=== PATIENT | male | born 1985 | race Caucasian/White ===

== ENCOUNTER 2020-12-25 17:07 | Inpatient (IN) | payer MEDICARE, MEDICAID, SELFPAY ==
--- NOTE | ~2020-12-25 | US_ITS ---
EXAMINATION: ULTRASOUND LEFT GROIN CLINICAL INFORMATION: Left groin pain adenopathy COMPARISON: DVT study 03/31/2020 TECHNIQUE: Ultrasound of the left groin and proximal thigh was performed. FINDINGS: Multiple enlarged lymph nodes are present the largest measuring 3.9 x 1.5 x 0.9 cm. Morphologically they appear normal with normal fatty pb. They are moderately hypervascular. Subcutaneous edema is noted in the thigh. US/US extremity nonvascular IMPRESSION: Multiple enlarged/prominent lymph nodes left groin as described above.
--- NOTE | ~2020-12-25 | XR_ITS ---
EXAMINATION: XR CHEST CLINICAL INFORMATION: Fever. COMPARISON: None TECHNIQUE: 2 views of the chest were obtained. FINDINGS: The lungs are clear. There are no pleural effusions. The heart and mediastinal structures are unremarkable. XR/XR chest 2V IMPRESSION: No acute cardiopulmonary process.
--- NOTE | ~2020-12-25 | US_ITS ---
EXAMINATION: US VENOUS ULTRASOUND WITH DOPPLER LOWER EXTREMITY, LEFT CLINICAL INFORMATION: Pain COMPARISON: Previous exam March 2020 TECHNIQUE: Ultrasound of the deep veins is performed from the hip to the calf with compression sonography and color and pulse Doppler assessment. Spectral analysis with color-flow imaging is performed. FINDINGS: There is normal venous compression and respiratory variation and augmented flow. The visualized common femoral vein, superficial femoral vein, profunda femoral vein, popliteal vein, and the trifurcation region shows no evidence of deep venous thrombosis. There is no significant popliteal fossa cyst. There is left inguinal lymphadenopathy. US/US venous duplex LE LT IMPRESSION: No DVT demonstrated in the left lower extremity.
[2020-12-25 19:53] VITALS: BP 116/57; PULSE 121; RESP 18; TEMP 38.4; O2SAT 96; BMI 31.7
[2020-12-25] MEDS: Ibuprofen 600 MG TABLET PO (20:01)
[2020-12-25 20:17] LABS: Basophils Percent Auto 0.1 % (0-2); Hematocrit 46.3 % (42-52); Imm Gran Abs Auto 0.03 X10*3/uL (0.00-0.03); Imm Gran Pct Auto 0.3 % (0.0-0.4); Lymphocytes Absolute Auto 0.3 X10*3/uL (1.2-4.9); Lymphocytes Percent Auto 2.4 % (20-40); MANUAL DIFF FLAG SCAN; Mean Corpuscular HGB Conc 34.6 g/dl (31.0-36.0); Mean Corpuscular Hemoglobin 32.4 pg (27.0-33.0); Mean Corpuscular Volume 93.7 fL (80-98); Mean Platelet Volume 8.6 fL (9.4-12.4); Monocytes Absolute Auto 0.5 X10*3/uL (0.1-1.2); Monocytes Percent Auto 4.9 % (2-11); Neutrophils Absolute Auto 10.1 X10*3/uL (2.0-8.3); Neutrophils Percent Auto 92.3 % (45-73); Platelet Count 209 X10*3/uL (160-400); Red Blood Count 4.94 X10*6/uL (4.60-5.80); Red Cell Distribution Width 12.9 % (11.0-16.0); SCAN SMEAR FLAG 1; White Blood Count 10.9 X10*3/uL (4.8-10.8)
[2020-12-25 20:28] LABS: INTERNATIONAL NORM RATIO 1.1 (0.9-1.1); Prothrombin Time 13.5 SEC (10.8-13.0)
[2020-12-25 20:34] LABS: Lactic Acid 2.4 mmol/L (0.5-2.0)
[2020-12-25 20:34] LABS: Anion Gap 14 (12-20); Blood Urea Nitrogen 14 mg/dL (9-16); Calcium 9.3 mg/dL (8.4-10.2); Carbon Dioxide 29 mmol/L (22-29); Chloride 100 mmol/L (96-108); Creatinine Clr Calc Pharmacy 88.9; Estimated Glomerular Filt Rate > 60; Glucose Random 120 mg/dL (60-115); Potassium 4.2 mmol/L (3.3-5.1); SLIDE REVIEW VERIFIED; Sodium 139 mmol/L (135-145)
[2020-12-25 21:21] VITALS: BP 125/59; PULSE 114; RESP 18; TEMP 37.3; O2SAT 97
[2020-12-25 21:22] VITALS: BP 125/59; PULSE 112; RESP 16; O2SAT 100
--- NOTE | 2020-12-25 21:26 | ED_ITS ---
HPI - General Adult General Chief complaint: General Medical Stated complaint: Groin pain Time Seen by Provider: 12/25/20 21:09 Source: patient Mode of arrival: ambulatory History of Present Illness HPI narrative: This is a 35-year-old male with long-standing congenital bilateral lower extremity lymphedema who presents with worsening swelling of both lower extremities associated with erythema and with swelling and pain in bilateral groin areas left greater than right. In addition, patient states some chills but denies any fevers, urinary symptoms, abdominal pain, diarrhea. Patient states that this is happened previously a few years ago and he was seen and treated at [facility]. Related Data Allergies Allergy/AdvReac Type Severity Reaction Status Date / Time vancomycin Allergy Unknown Hives Verified 12/25/20 19:53 Review of Systems Review of Systems: Pertinent positives and negatives as stated in HPI 10 point review of systems is otherwise negative. [facility] Past Medical History Source: nursing notes reviewed Medical History Lymphedema Social History Social History Alcohol intake: current Alcohol intake frequency: holidays/special occasions only Smoking Status: Never smoker Substance Use Type: Marijuana Substance Use Frequency: Weekly Last Used Substance: Days (ago) Any prior treatment program specific to substance use: No Advance Directives: No Physical Exam Vital Signs: Vital Signs: Last Vital Signs Temp 99.2 F 12/25/20 21:21 Pulse 114 H 12/25/20 21:21 Resp 18 12/25/20 21:21 BP 125/59 L 12/25/20 21:21 Pulse Ox 97 12/25/20 21:21 Body Mass Index 31.7 VITAL SIGNS: Reviewed. GENERAL: Well developed, well nourished, in no acute distress. HEAD: Normocephalic/atraumatic EYES: PERRLA, EOMI NOSE: Nares patent bilateral OROPHARYNX: no oral lesions noted, posterior pharynx clear NECK: Supple, no adenopathy LUNGS: Normal breath sounds. No adventitious sounds or accessory muscle use. SpO2<97> CARDIOVASCULAR: Regular rate and rhythm without noted murmurs ABDOMEN: Soft, non-tender, non-distended with bowel sounds. Noted swelling at the bilateral groin area, left greater than right, with significant pain on palpation EXTREMITIES: Bilateral lower extremity lymphedema without pitting, erythema noted to the left lower extremity, palpable pulses/symmetric, and sensation intact SKIN: Inspection of the skin reveals no rashes NEUROLOGIC: Alert and oriented x 4. Course Course Course Narrative: This 35-year-old male with history and clinical presentation consistent with bilateral lower extremity cellulitis secondary to longstanding congenital lymphedema and currently having sepsis with organ dysfunction (bilirubin-1.3). Otherwise, all other investigations reviewed without acute findings other than mild leukocytosis. Doubt DVT based on patient's history and clinical exam. This case was discussed with the inpatient hospitalist team who is agreeable for admission. Medical Decision Making Lab Data Result diagrams: 12/25/20 20:08 12/25/20 20:08 Labs: Lab Results 12/25/20 12/25/20 12/25/20 Range/Units 20:07 20:08 20:08 WBC 10.9 H (4.8-10.8) X10*3/uL RBC 4.94 (4.60-5.80) X10*6/uL Hgb 16.0 (14.0-18.0) g/dl Hct 46.3 (42-52) % MCV 93.7 (80-98) fL MCH 32.4 (27.0-33.0) pg MCHC 34.6 (31.0-36.0) g/dl RDW 12.9 (11.0-16.0) % Plt Count 209 (160-400) X10*3/uL MPV 8.6 L (9.4-12.4) fL Immature Gran % (Auto) 0.3 (0.0-0.4) % Neut % (Auto) 92.3 H (45-73) % Lymph % (Auto) 2.4 L (20-40) % [place] % (Auto) 4.9 (2-11) % Eos % (Auto) 0.0 (0-4) % Baso % (Auto) 0.1 (0-2) % Lymph # (Auto) 0.3 L (1.2-4.9) X10*3/uL [place] # (Auto) 0.5 (0.1-1.2) X10*3/uL Eos # (Auto) 0.0 (0.0-0.4) X10*3/uL Baso # (Auto) 0.0 (0.0-0.2) X10*3/uL Abs Immat Gran (auto) 0.03 (0.00-0.03) X10*3/uL Absolute Neuts (auto) 10.1 H (2.0-8.3) X10*3/uL Absolute Nucleated RBC 0.000 (0.0-0.012) X10*3/uL Nucleated RBC % (auto) 0.0 (0.0-0.2) /100WBC Smear Tech's Comments VERIFIED PT 13.5 H (10.8-13.0) SEC INR 1.1 (0.9-1.1) Sodium (135-145) mmol/L Potassium (3.3-5.1) mmol/L Chloride (96-108) mmol/L Carbon Dioxide (22-29) mmol/L Anion Gap (12-20) BUN (9-16) mg/dL Creatinine (0.5-1.4) mg/dL Estim Creat Clear Calc Estimated GFR Random Glucose (60-115) mg/dL Lactic Acid 2.4 H* (0.5-2.0) mmol/L Calcium (8.4-10.2) mg/dL Total Bilirubin (0.0-1.0) mg/dL Direct Bilirubin (0.0-0.5) mg/dL AST (5-37) U/L ALT (0-40) U/L Alkaline Phosphatase (39-117) U/L Total Protein (6.5-8.0) g/dL Albumin (3.5-5.0) g/dL Urine Color Urine Appearance Urine pH (5.0-8.0) Ur Specific [place] (1.005-1.025) Urine Protein (NEG-TRACE) MG/DL Urine Glucose (UA) (NEG) MG/DL Urine Ketones (NEG) MG/DL Urine Blood (NEG) Urine Nitrite (NEG) Ur Leukocyte Esterase (NEG) Urine RBC (0) /HPF Urine WBC (0-4) /HPF Ur Squamous Epith Cells /LPF Urine Bacteria /LPF COVID-19 (EMELYN) (Negative) COVID-19 Clin Com 12/25/20 12/25/20 12/25/20 Range/Units 20:08 21:35 21:35 WBC (4.8-10.8) X10*3/uL RBC (4.60-5.80) X10*6/uL Hgb (14.0-18.0) g/dl Hct (42-52) % MCV (80-98) fL MCH (27.0-33.0) pg MCHC (31.0-36.0) g/dl RDW (11.0-16.0) % Plt Count (160-400) X10*3/uL MPV (9.4-12.4) fL Immature Gran % (Auto) (0.0-0.4) % Neut % (Auto) (45-73) % Lymph % (Auto) (20-40) % [place] % (Auto) (2-11) % Eos % (Auto) (0-4) % Baso % (Auto) (0-2) % Lymph # (Auto) (1.2-4.9) X10*3/uL [place] # (Auto) (0.1-1.2) X10*3/uL Eos # (Auto) (0.0-0.4) X10*3/uL Baso # (Auto) (0.0-0.2) X10*3/uL Abs Immat Gran (auto) (0.00-0.03) X10*3/uL Absolute Neuts (auto) (2.0-8.3) X10*3/uL Absolute Nucleated RBC (0.0-0.012) X10*3/uL Nucleated RBC % (auto) (0.0-0.2) /100WBC Smear Tech's Comments PT (10.8-13.0) SEC INR (0.9-1.1) Sodium 139 (135-145) mmol/L Potassium 4.2 (3.3-5.1) mmol/L Chloride 100 (96-108) mmol/L Carbon Dioxide 29 (22-29) mmol/L Anion Gap 14 (12-20) BUN 14 (9-16) mg/dL Creatinine 1.27 (0.5-1.4) mg/dL Estim Creat Clear Calc 88.9 Estimated GFR > 60 Random Glucose 120 H (60-115) mg/dL Lactic Acid (0.5-2.0) mmol/L Calcium 9.3 (8.4-10.2) mg/dL Total Bilirubin 1.3 H (0.0-1.0) mg/dL Direct Bilirubin 0.5 (0.0-0.5) mg/dL AST 38 H (5-37) U/L ALT 21 (0-40) U/L Alkaline Phosphatase 86 (39-117) U/L Total Protein 7.9 (6.5-8.0) g/dL Albumin 4.5 (3.5-5.0) g/dL Urine Color YELLOW Urine Appearance CLEAR Urine pH 6.5 (5.0-8.0) Ur Specific [place] 1.010 (1.005-1.025) Urine Protein NEG (NEG-TRACE) MG/DL Urine Glucose (UA) NEG (NEG) MG/DL Urine Ketones NEG (NEG) MG/DL Urine Blood TRACE (NEG) Urine Nitrite NEG (NEG) Ur Leukocyte Esterase NEG (NEG) Urine RBC 1-4 (0) /HPF Urine WBC 0 (0-4) /HPF Ur Squamous Epith Cells TRACE /LPF Urine Bacteria TRACE /LPF COVID-19 (EMELYN) Negative (Negative) COVID-19 Clin Com See Note Discharge Plan Discharge Clinical Impression: Bilateral cellulitis of lower leg, Lymphedema of both lower extremities, Sepsis Patient Disposition: Admitted As Inpatient
[2020-12-25 21:32] LABS: Alanine Aminotransferase 21 U/L (0-40); Albumin Level 4.5 g/dL (3.5-5.0); Alkaline Phosphatase 86 U/L (39-117); Aspartate Amino Transferase 38 U/L (5-37); Bilirubin Direct 0.5 mg/dL (0.0-0.5); Bilirubin Total 1.3 mg/dL (0.0-1.0); Total Protein 7.9 g/dL (6.5-8.0)
[2020-12-25 21:45] LABS: Glucose Urine UA NEG (NEG); Leukocyte Esterase Urine NEG (NEG); Nitrite Urine NEG (NEG); PH 6.5 (5.0-8.0); Urine Blood TRACE (NEG); Urine Ketones NEG (NEG); Urine Protein NEG (NEG-TRACE)
[2020-12-25 21:46] LABS: Appearance Urine CLEAR; Color Urine YELLOW
[2020-12-25] MEDS: 0.9 % Sodium Chloride 2,052 ML 2052 ML IVCONT (21:50)
[2020-12-25 21:51] LABS: Bacteria Urine TRACE /LPF; Squamous Epithelial Cell Urine TRACE /LPF; WBC Urine 0 /HPF (0-4)
[2020-12-25 22:01] LABS: COVID-19 Test Negative (Negative); IDNOW Serial# 9DD0AD1C
[2020-12-25 22:14] LABS: Reflex Lactate? Lactic Acid Added
[2020-12-25] MEDS: Piperacillin Sodium/Tazobactam 4.5 GM in 0.9 % Sodium Chloride 100 ML IV (22:17)
[2020-12-25 23:12] VITALS: BP 120/61; PULSE 103; RESP 16; TEMP 37; O2SAT 100
--- NOTE | 2020-12-25 23:19 | P.HPHOSP_ITS ---
History of Present Illness Date of Service: 12/25/20 Chief Complaint: Left groin pain 35-year-old male with a past medical history of bilateral chronic lymphedema presented to the hospital with a chief complaint of left lower extremity pain redness and swelling and more so the pain is located in the groin. Mentions that his symptoms started about 1 day ago and a had increasing pain at work; called his PCP's who recommended to go to the clinic where he was recommended to go to the ER for further evaluation. Patient mentions that all day at length chills. Denies any numbness tingling. Denies any difficulty walking. Denies any abdominal pain chest pain lightheadedness dizziness. Denies any recent travel or sick contacts. Patient mentions that he has has chronic lymphedema. [facility] Medical History Lymphedema Social History Household Members: Family Alcohol intake: current Alcohol intake frequency: holidays/special occasions only Smoking Status: Never smoker Substance Use Type: Marijuana service: No Current occupational status: unemployed Meds Allergies Allergy/AdvReac Type Severity Reaction Status Date / Time vancomycin Allergy Unknown Hives Verified 12/25/20 19:53 Active Medications: Current Medications Generic Name Dose Route Start Last Admin Trade Name Freq PRN Reason Stop Dose Admin Heparin Sodium (Porcine) 5,000 unit 12/25/20 23:15 Heparin Sodium,Porcine 5,000 Unit/Ml Vial SUBCUT Q8H KODI Sodium Chloride 1,000 mls @ 100 mls/hr 12/25/20 23:15 Ns IVCONT .Q10H KODI Piperacillin Sod/Tazobactam 50 mls @ 100 mls/hr 12/25/20 23:30 Sod 3.375 gm/ Sodium Chloride IV Q6H KODI Ketorolac Tromethamine 15 mg 12/25/20 23:15 Ketorolac Tromethamine 30 Mg/Ml Vial IVPUSH 12/30/20 23:14 Q6H PRN Pain, Mild (Pain Scale 1-3) Senna 17.2 mg 12/25/20 23:15 Sennosides 8.6 Mg Tablet PO BEDTIME PRN Constipation Sodium Chloride 3 ml 12/26/20 00:00 0.9 % Sodium Chloride Flush 3 Ml Syringe IVFLUSH QSHIFT [facility] Home Medications Medication Instructions Recorded Confirmed Last Taken Type ibuprofen 1 tab PO TID PRN 12/25/20 12/25/20 12/23/20 History 800 Physical Exam Vital Signs and Narrative: Vital Signs: Last Vital Signs Temp 98.6 F 12/25/20 23:12 Pulse 103 H 12/25/20 23:12 Resp 16 12/25/20 23:12 BP 120/61 12/25/20 23:12 Pulse Ox 100 12/25/20 23:12 Body Mass Index 31.7 Gen: Appears be in no acute distress HEENT: NCAT, Moist mucosa. Pulmonary: Vesicular breath sounds, fair air entry CVS: Normal S1-S2 Abdomen: BS+, Soft, Nontender Extremities: Warm well perfused; left groin tenderness and lymphadenopathy noticed. Left thigh and left leg are warm and hyperemic. Right lower extremity is less hyperemic compared to the left. Neuro: Alert and awake. Patient examined along with a banquet manager/RN at bedside Results Labs CBC and Chem 7: 12/28/20 08:05 12/28/20 08:05 Labs: Laboratory Results - last 24 hr 12/25/20 12/25/20 12/25/20 20:07 20:08 20:08 MCV 93.7 MCH 32.4 MCHC 34.6 RDW 12.9 Plt Count 209 MPV 8.6 L Immature Gran % (Auto) 0.3 Neut % (Auto) 92.3 H Lymph % (Auto) 2.4 L [place] % (Auto) 4.9 Eos % (Auto) 0.0 Baso % (Auto) 0.1 Lymph # (Auto) 0.3 L [place] # (Auto) 0.5 Eos # (Auto) 0.0 Baso # (Auto) 0.0 Abs Immat Gran (auto) 0.03 Absolute Neuts (auto) 10.1 H Absolute Nucleated RBC 0.000 Nucleated RBC % (auto) 0.0 Smear Tech's Comments VERIFIED PT 13.5 H INR 1.1 Anion Gap Estim Creat Clear Calc Estimated GFR Random Glucose Lactic Acid 2.4 H* Calcium Total Bilirubin Direct Bilirubin AST ALT Alkaline Phosphatase Total Protein Albumin Urine Color Urine Appearance Urine pH Ur Specific [place] Urine Protein Urine Glucose (UA) Urine Ketones Urine Blood Urine Nitrite Ur Leukocyte Esterase Urine RBC Urine WBC Ur Squamous Epith Cells Urine Bacteria COVID-19 (EMELYN) COVID-19 Clin Com 12/25/20 12/25/20 12/25/20 20:08 21:35 21:35 MCV MCH MCHC RDW Plt Count MPV Immature Gran % (Auto) Neut % (Auto) Lymph % (Auto) [place] % (Auto) Eos % (Auto) Baso % (Auto) Lymph # (Auto) [place] # (Auto) Eos # (Auto) Baso # (Auto) Abs Immat Gran (auto) Absolute Neuts (auto) Absolute Nucleated RBC Nucleated RBC % (auto) Smear Tech's Comments PT INR Anion Gap 14 Estim Creat Clear Calc 88.9 Estimated GFR > 60 Random Glucose 120 H Lactic Acid Calcium 9.3 Total Bilirubin 1.3 H Direct Bilirubin 0.5 AST 38 H ALT 21 Alkaline Phosphatase 86 Total Protein 7.9 Albumin 4.5 Urine Color YELLOW Urine Appearance CLEAR Urine pH 6.5 Ur Specific [place] 1.010 Urine Protein NEG Urine Glucose (UA) NEG Urine Ketones NEG Urine Blood TRACE Urine Nitrite NEG Ur Leukocyte Esterase NEG Urine RBC 1-4 Urine WBC 0 Ur Squamous Epith Cells TRACE Urine Bacteria TRACE COVID-19 (EMELYN) Negative COVID-19 Clin Com See Note 12/25/20 21:42 MCV MCH MCHC RDW Plt Count MPV Immature Gran % (Auto) Neut % (Auto) Lymph % (Auto) [place] % (Auto) Eos % (Auto) Baso % (Auto) Lymph # (Auto) [place] # (Auto) Eos # (Auto) Baso # (Auto) Abs Immat Gran (auto) Absolute Neuts (auto) Absolute Nucleated RBC Nucleated RBC % (auto) Smear Tech's Comments PT INR Anion Gap Estim Creat Clear Calc Estimated GFR Random Glucose Lactic Acid 4.0 H* Calcium Total Bilirubin Direct Bilirubin AST ALT Alkaline Phosphatase Total Protein Albumin Urine Color Urine Appearance Urine pH Ur Specific [place] Urine Protein Urine Glucose (UA) Urine Ketones Urine Blood Urine Nitrite Ur Leukocyte Esterase Urine RBC Urine WBC Ur Squamous Epith Cells Urine Bacteria COVID-19 (EMELYN) COVID-19 Clin Com Imaging Radiologist's Impressions: Impressions Chest X-Ray 12/25/20 20:25 IMPRESSION: No acute cardiopulmonary process. Assessment and Plan (1) Bilateral cellulitis of lower leg: Status: Acute 35-year-old male with a past medical history of bilateral chronic lymphedema presented to the hospital with a chief complaint of left groin pain and increased hyperemia on bilateral lower extremities most on the left lower extremity. Noted to have cellulitis. Admitted for further management. Bilateral lower extremities still is: There is increased hyperemia and pain noticed on the left lower extremity as well as left groin. Will continue IV Zosyn. Next will obtain ultrasound. Pain control DVT prophylaxis: Subcu heparin Code status: Full code
[2020-12-25 23:47] LABS: Reflex Lactate? Lactic Acid Added
[2020-12-25] MEDS: 0.9 % Sodium Chloride 1,000 ML 100 ML IVCONT (23:53)
--- NOTE | 2020-12-25 23:53 | PC.NURSE ---
ultra sound at bedside at this time. pt comfort is at 3/10, denies the need for pain medication at this time.
[2020-12-25 23:54] VITALS: BP 108/43; PULSE 103; RESP 18; O2SAT 99
[2020-12-26] VITALS (9 sets, daily range): BP systolic 105–122; BP diastolic 52–60; PULSE 95–109; RESP 15–18; TEMP 37.1–38.8; O2SAT 95–99
[2020-12-26 00:15] LABS: ~Lactic Acid-LAB USE ONLY 4.1 mmol/L (0.5-2.0)
[2020-12-26] MEDS: Heparin Sodium,Porcine 5,000 UNIT/ML VIAL 5000 UNIT SUBCUT ×2 (00:38→10:35)
[2020-12-26 01:48] LABS: Reflex Lactate? 2 Y
[2020-12-26] MEDS: Piperacillin Sodium/Tazobactam 3.375 GM in 0.9 % Sodium Chloride 50 ML IV ×4 (02:53→20:54)
[2020-12-26 03:05] LABS: ~Lactic Acid-LAB USE ONLY 2.6 mmol/L (0.5-2.0)
[2020-12-26 04:29] LABS: Lactic Acid 2.6 mmol/L (0.5-2.0)
--- NOTE | 2020-12-26 04:32 | PC.NURSE ---
attempted to call hospitalist to report lactic 2.6 same as prev.
[2020-12-26 06:02] LABS: Reflex Lactate? Lactic Acid Added
[2020-12-26 07:27] LABS: Hematocrit 41.9 % (42-52); Hemoglobin 14.5 g/dl (14.0-18.0); Mean Corpuscular HGB Conc 34.6 g/dl (31.0-36.0); Mean Corpuscular Hemoglobin 32.7 pg (27.0-33.0); Mean Corpuscular Volume 94.4 fL (80-98); Mean Platelet Volume 8.7 fL (9.4-12.4); Platelet Count 164 X10*3/uL (160-400); Red Blood Count 4.44 X10*6/uL (4.60-5.80)
[2020-12-26 07:45] LABS: Anion Gap 13 (12-20); Blood Urea Nitrogen 10 mg/dL (9-16); Carbon Dioxide 24 mmol/L (22-29); Chloride 107 mmol/L (96-108); Creatinine Clr Calc Pharmacy 111.8; Estimated Glomerular Filt Rate > 60; Glucose Random 119 mg/dL (60-115); Potassium 3.6 mmol/L (3.3-5.1); Sodium 140 mmol/L (135-145)
[2020-12-26 07:47] LABS: ~Lactic Acid-LAB USE ONLY 1.9 mmol/L (0.5-2.0)
[2020-12-26 07:54] LABS: Calcium 7.9 mg/dL (8.4-10.2)
[2020-12-26 08:01] LABS: Band Neutrophils Percent 18 % (3-5); Lymphocytes Absolute Manual 0.6 X10*3/uL (0.6-4.8); Lymphocytes Percent Manual 6 % (20-40); Monocytes Absolute Manual 0.1 X10*3/uL (0.0-1.2); Monocytes Percent Manual 1 % (2-11); Neutrophils Absolute Manual 9.3 X10*3/uL (2.2-7.9); Neutrophils Percent Manual 75 % (45-73)
[2020-12-26 08:02] LABS: Platelet Estimate SLIGHTLY DECREASED (NORMAL); Platelet Morphology Comment NORMAL; RBC Morphology NORMAL
--- NOTE | 2020-12-26 08:14 | P.CDIC_ITS ---
CDI Concurrent Query Service Date: 12/26/20 Documentation Clarification: Please clarify if you are treating a proba ble/suspected/likely or confirmed: Sepsis Txt, rule out, poa, resolved Sepsis due to cellulitis Cellulitis Sepsis Present on Admission Provider Response: Other Other Diagnosis: Sepsis, POA PLEASE DO NOT DELETE/MODIFY EXISTING CONTENT Additional information is needed in order to code to the highest accuracy and appropriate Severity of Illness (SOI). Please clarify the information noted below in your progress notes and discharge summary. Risk Factors/Clinical Indicators/Treatments ED: pt currently having signs of sepsis with organ dysfunction (bilirubin 1.3) lymphedema both lower extremities, bilateral cellulitis both lower legs. WBC 10.9 Temp 99.2 HR 114 RR 18 LA 2.4 IV Zosyn H&P: Chief complaint: cellulitis, groin pain, hyperemia on b/l lower extremities CDS: Maria L Fuens CCS, CDIS Contact Number: [phone] Please Review the information above and exercise your independent professional judgment in responding to the query. If you concur, pleas document in the PROGRESS NOTES and DISCHARGE SUMMARY. If you do not agree with the query, please document in the query above. THIS QUERY IS PART OF THE PERMANENT MEDICAL RECORD
--- NOTE | 2020-12-26 09:11 | PC.NURSE ---
Received tigertext from Deb Louis in [place]. On 2 out of 2 positive blood cultures, I tigertexted Dr. Fowler
[2020-12-26] MEDS: 0.9 % Sodium Chloride 1,000 ML 100 ML IVCONT ×2 (10:08→20:54)
--- NOTE | 2020-12-26 10:27 | HO.PM.IMPN ---
Subjective Subjective Date of Service: 12/26/20 Interval History: seen and examined reports pain improved denies fevers or chills reports lymphedma since age 7, follows up with lymphedema clinic ROS General - no fevers or chills Cardiovascular - no chest pain Respiratory - no shortness of breath or cough Abdominal- no abdominal pain, nausea, vomiting, diarrhea Physical Exam Vital Signs: Vital Signs: Last Vital Signs Temp 99.7 F 12/26/20 08:00 Pulse 95 12/26/20 08:00 Resp 17 12/26/20 08:00 BP 114/58 L 12/26/20 08:00 Pulse Ox 98 12/26/20 08:00 Body Mass Index 31.7 Const: Other: General - no acute distress, appears comfortable Cardiovascular - regular rate and rhythm, S1-S2 Lungs - normal respiratory effort, clear to auscultation bilaterally, no wheezing Abdomen - soft, nontender, no rebound or guarding Extremities - bilateral swelling L > R, erythema and warmth present as well Neuro - awake and alert, no focal deficits Objective Data Current Medications Generic Name Dose Route Start Last Admin Trade Name Freq PRN Reason Stop Dose Admin Heparin Sodium (Porcine) 5,000 unit 12/26/20 00:00 12/26/20 00:38 Heparin Sodium,Porcine 5,000 Unit/Ml Vial SUBCUT 5,000 unit Q8H KODI Administration Sodium Chloride 1,000 mls @ 100 mls/hr 12/25/20 23:15 12/26/20 10:08 Ns IVCONT 100 mls/hr .Q10H KODI Administration Piperacillin Sod/Tazobactam 50 mls @ 100 mls/hr 12/26/20 04:00 12/26/20 10:09 Sod 3.375 gm/ Sodium Chloride IV 100 mls/hr Q6H KODI Administration Ketorolac Tromethamine 15 mg 12/25/20 23:15 Ketorolac Tromethamine 15 Mg/Ml Vial IVPUSH 12/30/20 23:14 Q6H PRN Pain, Mild (Pain Scale 1-3) Senna 17.2 mg 12/25/20 23:15 Sennosides 8.6 Mg Tablet PO BEDTIME PRN Constipation Sodium Chloride 3 ml 12/26/20 00:00 12/26/20 10:08 0.9 % Sodium Chloride Flush 3 Ml Syringe IVFLUSH Not Given QSHIFT KODI Labs CBC & Chem 7: 12/26/20 07:06 12/26/20 07:06 Microbiology Microbiology Results: Microbiology 12/25/20 21:42 Blood - Venous Blood Culture - Preliminary 12/25/20 20:07 Blood - Venous Blood Culture - Preliminary Assessment and Plan (1) Bilateral cellulitis of lower leg: Status: Acute Assessment and Plan: This is a 35 yo M admitted for bilateral LE cellulitis in the setting of chronic lymph edema. He met sepsis criteria in the ED with tachycardia, fevers and bandemia. He received fluid bolus based on ideal body weight in the ED. 1. Severe sepsis met sepsis criteria with fevers, tachycardia, bandemia present in the ED, received IVF based on ideal body weight lactate normalized f/u blood cx -- growing GPC 2. Bilatera LE cellulitis growing GPC in 2/ cx continue zosyn, has vancomcyin allergy, will consult ID for input 3. GPC bacteremia see above Full Code DVt pptx, Lovenox
--- NOTE | 2020-12-26 10:54 | MHC.CM.PN ---
IMM 12/26/20, PT ADMITTED W/BILATERAL LE CELLULITIS, PT HAS CHRONIC BILATERAL LE LYMPHODEMA AND WEARS LYMPHADEMA PUMPS TO MANAGE AT HOME, PT REPORTS HE LIVES W/EX AND CHILDREN, INDEPENDENT W/ALL CARE, NO HOME SERVICES, PT VERIFIES PCP ON FILE IS CORRECT AND REPORTS HIS LYMPHADEMA SPECIALIST IS DR AMARIS TIDWELL IN [facility], DENIES ANY OTHER SPECIALISTS, DECLINES HCP AT THIS TIME. CM WILL CONT TO FOLLOW FOR ANY CHANGE IN D/C NEEDS. DISCHARGE PLAN: HOME SELF-CARE, MOTHER TO TRANSPORT
--- NOTE | 2020-12-26 11:38 | PC.NURSE ---
Tigertexted Sudha Cheatham for tylenol pt has a temp of 101.8
[2020-12-26] MEDS: Acetaminophen 325 MG TABLET 650 MG PO ×2 (12:03→20:55)
--- NOTE | 2020-12-26 12:30 | P.CNID_ITS ---
History of Present Illness Data of Consult Service Date: 12/26/20 Requesting physician: Sudha Cheatham Primary Care Provider: MD JOSE Cha Reason for consult: bacteremia He presents to hospital with left leg swelling and pain These symptoms are present for about a week He has temperature to 101.8 He has blood cultures gram positive cocci Review of Systems Review of Systems: Yes all other systems are reviewed and are negative PMFSH Past Medical History Medical History Lymphedema Family History Family history: reviewed and not pertinent Social History Social History Household Members: Family Do you presently have visiting nurse or other home services: No Alcohol intake: current Alcohol intake frequency: holidays/special occasions o nly Smoking Status: Never smoker Substance Use Type: Marijuana Substance Use Frequency: Weekly Last Used Substance: Days (ago) Any prior treatment program specific to substance use: No Have you been hit, kicked, punched, or otherwise hurt by someone within the past year? If so, by whom?: No Do you feel safe in your current relationship?: Yes Advance Directives: No Do you have thoughts of harming others: None Do you have a plan to hurt others: No Plan Recently lost weight without trying: No service: No Current occupational status: unemployed Meds Allergies Allergy/AdvReac Type Severity Reaction Status Date / Time vancomycin Allergy Unknown Hives Verified 12/25/20 19:53 Active Medications: Current Medications Generic Name Dose Route Start Last Admin Trade Name Freq PRN Reason Stop Dose Admin Acetaminophen 650 mg 12/26/20 11:38 12/26/20 12:03 Acetaminophen 325 Mg Tablet PO 650 mg Q4H PRN Administration Fever Enoxaparin Sodium 40 mg 12/26/20 18:00 Enoxaparin Sodium 40 Mg/0.4 Ml Syringe SUBCUT Q24H KODI Sodium Chloride 1,000 mls @ 100 mls/hr 12/25/20 23:15 12/26/20 10:08 Ns IVCONT 100 mls/hr .Q10H KODI Administration Piperacillin Sod/Tazobactam 50 mls @ 100 mls/hr 12/26/20 04:00 12/26/20 11:39 Sod 3.375 gm/ Sodium Chloride IV Infused Q6H KODI Infusion Ketorolac Tromethamine 15 mg 12/25/20 23:15 Ketorolac Tromethamine 15 Mg/Ml Vial IVPUSH 12/30/20 23:14 Q6H PRN Pain, Mild (Pain Scale 1-3) Senna 17.2 mg 12/25/20 23:15 Sennosides 8.6 Mg Tablet PO BEDTIME PRN Constipation Sodium Chloride 3 ml 12/26/20 00:00 12/26/20 10:08 0.9 % Sodium Chloride Flush 3 Ml Syringe IVFLUSH Not Given QSHIFT [facility] Home Medications Medication Instructions Recorded Confirmed Last Taken Type ibuprofen 1 tab PO TID PRN 12/25/20 12/25/20 12/23/20 History 800 Physical Exam Vital Signs: Vital Signs: Last Vital Signs Temp 101.8 F H 12/26/20 11:11 Pulse 103 H 12/26/20 11:11 Resp 18 12/26/20 11:11 BP 114/56 L 12/26/20 11:11 Pulse Ox 97 12/26/20 11:11 Body Mass Index 31.7 Const: General: cooperative HENMT: Ears: hearing grossly normal bilaterally Mouth: Normal oral and palatal mucosa present Resp: Effort & Inspection: normal respiratory effort Cardio: Rate: regular rate Rhythm: regular rhythm GI: Palpation (GI): Soft to palpation and nontender Skin: General skin exam: no rashes or lesions noted Extrem: Other: swelling left more than right,some tinea pedis Results Labs CBC & Chem 7: 12/26/20 07:06 12/26/20 07:06 Labs: Short CBC 12/25/20 12/26/20 Range/Units 20:08 07:06 WBC 10.9 H 10.0 (4.8-10.8) X10*3/uL Hgb 16.0 14.5 (14.0-18.0) g/dl Hct 46.3 41.9 L (42-52) % Plt Count 209 164 (160-400) X10*3/uL BMP 12/25/20 12/26/20 20:08 07:06 Sodium 139 140 Potassium 4.2 3.6 Chloride 100 107 Carbon Dioxide 29 24 BUN 14 10 Creatinine 1.27 1.01 Calcium 9.3 7.9 L D Liver Function 12/25/20 Range/Units 20:08 Total Bilirubin 1.3 H (0.0-1.0) mg/dL Direct Bilirubin 0.5 (0.0-0.5) mg/dL AST 38 H (5-37) U/L ALT 21 (0-40) U/L Alkaline Phosphatase 86 (39-117) U/L Albumin 4.5 (3.5-5.0) g/dL Urine 12/25/20 Range/Units 21:35 Urine Color YELLOW Urine Appearance CLEAR Urine pH 6.5 (5.0-8.0) Ur Specific [place] 1.010 (1.005-1.025) Urine Protein NEG (NEG-TRACE) MG/DL Urine Glucose (UA) NEG (NEG) MG/DL Microbiology Microbiology Results: Microbiology 12/25/20 21:42 Blood - Venous Blood Culture - Preliminary 12/25/20 20:07 Blood - Venous Blood Culture - Preliminary Assessment and Plan (1) Bilateral cellulitis of lower leg: Status: Acute (2) Lymphedema of both lower extremities: Status: Acute (3) Sepsis: Qualifiers: Sepsis acute organ dysfunction status: with acute organ dysfunction Sepsis type: sepsis due to unspecified organism Severe sepsis acute organ dysfunction type: unspecified Severe sepsis shock status: without septic shock Qualified Code(s): A41.9 - Sepsis, unspecified organism; R65.20 - Severe sepsis without septic shock Problem details: He has cellulitis since age 7,intermittently and due to tinea pedis Bacteremia may be strep or staph He has significant hives to Vancomycin Status: Acute Would continue gram positive coverage Continue Zosyn until further information ? change to Zyvox if MRSA or Ceftriaxone if strep Check echo
[2020-12-26] MEDS: Ketorolac Tromethamine 15 MG/ML VIAL IVPUSH ×2 (16:01→22:09)
[2020-12-26] MEDS: Enoxaparin Sodium 40 MG/0.4 ML SYRINGE SUBCUT (18:00)
[2020-12-26] MEDS: Sennosides 8.6 MG TABLET 17.2 MG PO (20:54)
[2020-12-27 04:00] VITALS: BP 128/58; PULSE 116; RESP 16; TEMP 37.1; O2SAT 97
[2020-12-27] MEDS: Piperacillin Sodium/Tazobactam 3.375 GM in 0.9 % Sodium Chloride 50 ML IV ×2 (04:15→11:02)
[2020-12-27 07:45] VITALS: BP 126/58; PULSE 116; RESP 17; TEMP 38.6; O2SAT 96
[2020-12-27] MEDS: 0.9 % Sodium Chloride 1,000 ML 100 ML IVCONT (07:54)
[2020-12-27] MEDS: Acetaminophen 325 MG TABLET 650 MG PO ×2 (07:55→17:47)
--- NOTE | 2020-12-27 11:00 | CA_ITS ---
Transthoracic Echocardiogram Patient (Last, First, Middle): Tesfaye Merlos, Gender: Male Date of : 1985 Age: 35 Procedure Date: 12/27/2020 Procedure Type: Transthoracic Echocardiogram Location: S3W Height: 172.72 cm Weight: 94.8 kg BSA: 2.08 m2 Heart Rate: bpm BP: 128 / 58 mmHg Certified Physical Therapist Assistant: ARGENIS Referring MD: Sudha Cheatham NP Symptoms: strep on blood culture Study Quality: Good ECG Rhythm: Sinus Conclusions: - The left ventricular systolic function is normal. The visually estimated ejection fraction is between 55-60%. - No obvious valvular pathology seen on this study. Findings Left Ventricle Normal left ventricular cavity size. There is normal left ventricular wall thickness. The left ventricular systolic function is normal. The visually estimated ejection fraction is between 55-60%. There is no evidence of regional wall motion abnormalities. Diastolic function is normal for age. Right Ventricle Normal right ventricular cavity size and systolic function. Atria The left atrium is normal in size. The right atrium is normal in size. Aortic Valve There is a normal trileaflet aortic valve. There is no aortic valve stenosis. There is no aortic valve regurgitation. Mitral Valve The mitral valve appears normal. There is trace mitral valve regurgitation. There is no mitral valve stenosis. Pulmonic Valve The pulmonic valve was not well visualized. Tricuspid Valve Normal tricuspid valve structure. There is trace tricuspid valve regurgitation. The pulmonary artery systolic pressure is normal. Great Vessels The aortic annulus, sinuses of valsalva, and asc aorta are normal in size. Venous The inferior vena cava is mildly dilated. Pericardium/Pleural There is no evidence of pericardial effusion. Prior Study Comparison No prior study available for comparison. Recommendations, Care & Conclusions No obvious valvular pathology seen on this study. Measurements 2D Linear Measurements IVSd: 0.92 0.6-0.9/0.6-1.0 cm LVIDd: 5.01 3.9-5.3/4.2-5.9 cm LVIDd Index: 2.41 2.4-3.2/2.2-3.1 cm/m2 LVIDs: 2.86 2.0-3.6 cm LVPWd: 1.00 0.7-1.1 cm Ao Root: 3.50 2.1-3.5 cm LA Diam: 3.50 2.7-3.8/3.0-4.0 cm LAIDs Index: 1.68 1.5-2.3 cm/m2 LV Mass: 214.45 67-162/88-224 g LV Mass Index: 103.10 43-95/49-115 g/m2 LVOT Diam: 2.00 3.0+(-)1.3 cm 2D Systolic Function EF 4C: 56.20 >55% EF 2C: 62.10 >55% EF BiP: 59.70 >55% Aortic Valve AoV Pk Imer: 1.66 AoV Mn Imer: 1.14 AoV VTI: 0.27 AoV Pk Grad: 11.00 Aov Mn Grad: 6.00 NIVIA Cont.VTI: 2.90 LVOT LVOT Pk Imer: 1.35 LVOT Mn Imer: 1.07 LVOT VTI: 0.25 LVOT Pk Grad: 7.00 LVOT Mn Grad: 5.00 LVOT Diam: 2.00 LVOT Area: 3.14 Tricuspid Valve TR Pk Imer: 2.21 TR Pk Grad: 20.00 RA Press: 8.00 RVSP: 28.00 Great Vessels Aorta Ao Root-2D: 3.50 2.0-3.7 cm Ao Asc: 3.00 2.1-3.4 cm Updated in Other Vendor System with Status of Final Chris Soni MD electronically signed on 12/27/2020 3:56:19 PM with status of Final
--- NOTE | 2020-12-27 11:07 | P.PNIM_ITS ---
Subjective Subjective Date of Service: 12/27/20 Interval History: seen and examined reports leg swelling / tightness feel less compared to yesterday still having fevers, denies chills ROS General - no fevers or chills Cardiovascular - no chest pain Respiratory - no shortness of breath or cough Abdominal- no abdominal pain, nausea, vomiting, diarrhea Ext - leg pain and swelling + Physical Exam Vital Signs: Vital Signs: Last Vital Signs Temp 101.5 F H 12/27/20 07:45 Pulse 116 H 12/27/20 07:45 Resp 17 12/27/20 07:45 BP 126/58 L 12/27/20 07:45 Pulse Ox 96 12/27/20 07:45 Body Mass Index 31.7 Const: Other: General - no acute distress, appears comfortable Cardiovascular - regular rate and rhythm, S1-S2 Lungs - normal respiratory effort, clear to auscultation bilaterally, no wheezing Abdomen - soft, nontender, no rebound or guarding Extremities - bilateral swelling L > R, erythema and warmth present as well, less tense compared to yesterday, no increased pain with plantar or dorsiflexsion Neuro - awake and alert, no focal deficits Objective Data Current Medications Generic Name Dose Route Start Last Admin Trade Name Freq PRN Reason Stop Dose Admin Acetaminophen 650 mg 12/26/20 11:38 12/27/20 07:55 Acetaminophen 325 Mg Tablet PO 650 mg Q4H PRN Administration Fever Enoxaparin Sodium 40 mg 12/26/20 18:00 12/26/20 18:00 Enoxaparin Sodium 40 Mg/0.4 Ml Syringe SUBCUT 40 mg Q24H KODI Administration Sodium Chloride 1,000 mls @ 100 mls/hr 12/25/20 23:15 12/27/20 09:50 Ns IVCONT 100 mls/hr .Q10H KODI Infusion Piperacillin Sod/Tazobactam 50 mls @ 100 mls/hr 12/26/20 04:00 12/27/20 11:02 Sod 3.375 gm/ Sodium Chloride IV 100 mls/hr Q6H KODI Administration Ketorolac Tromethamine 15 mg 12/25/20 23:15 12/26/20 22:09 Ketorolac Tromethamine 15 Mg/Ml Vial IVPUSH 12/30/20 23:14 15 mg Q6H PRN Administration Pain, Mild (Pain Scale 1-3) Senna 17.2 mg 12/25/20 23:15 12/26/20 20:54 Sennosides 8.6 Mg Tablet PO 17.2 mg BEDTIME PRN Administration Constipation Sodium Chloride 3 ml 12/26/20 00:00 12/27/20 07:58 0.9 % Sodium Chloride Flush 3 Ml Syringe IVFLUSH Not Given QSHIFT KODI Labs CBC & Chem 7: 12/26/20 07:06 12/26/20 07:06 Microbiology Microbiology Results: Microbiology 12/25/20 21:42 Blood - Venous Blood Culture - Preliminary Strep agalactiae (Grp B) 12/25/20 20:07 Blood - Venous Blood Culture - Preliminary Strep agalactiae (Grp B) 12/25/20 21:35 Urine clean catch - Clean Catch Midstream Urine Culture - F inal No growth. Assessment and Plan (1) Bilateral cellulitis of lower leg: Status: Acute Assessment and Plan: This is a 35 yo M admitted for bilateral LE cellulitis in the setting of chronic lymph edema. He met sepsis criteria in the ED with tachycardia, fevers and bandemia. He received fluid bolus based on ideal body weight in the ED. 1. Severe sepsis still spiking temps - last temp 101.5 this AM met sepsis criteria with fevers, tachycardia, bandemia present in the ED, received IVF based on ideal body weight lactate normalized growing group B strep in the blood -- 2/2 bottles 2. Bilatera LE cellulitis 2a. Group B Strep bactermia switch zosyn to IV rocephin 2g q 24 hours; surveillance cultures sent today ID on board Full Code DVt pptx, Lovenox
[2020-12-27 12:00] VITALS: BP 115/63; PULSE 95; RESP 16; TEMP 37; O2SAT 97
[2020-12-27 12:40] LABS: Baso%MD 0.2 %; Eos%MD 0.3 %; Hematocrit 39.4 % (42-52); Hemoglobin 13.4 g/dl (14.0-18.0); IG%MD 0.5 %; Lymph%MD 6.6 %; Mono%MD 4.7 %; Neut%MD 87.7 %; Platelet Count 157 X10*3/uL (160-400); Red Blood Count 4.06 X10*6/uL (4.60-5.80); Red Cell Distribution Width 13.5 % (11.0-16.0); White Blood Count 11.2 X10*3/uL (4.8-10.8)
[2020-12-27] MEDS: cefTRIAXone sodium 2 GM in 0.9 % Sodium Chloride 50 ML IV (13:06)
[2020-12-27 15:16] VITALS: BP 129/65; PULSE 107; RESP 18; TEMP 36.3; O2SAT 99
[2020-12-27 15:39] LABS: Atypical Lymph Absolute Manual 0.2 x10*3/uL; Atypical Lymphs Percent Manual 2 % (0-6); Band Neutrophils Percent 16 % (3-5); Eosinophils Absolute Manual 0.1 X10*3/UL (0.0-0.8); Eosinophils Percent Manual 1 % (0-4); Lymphocytes Absolute Manual 0.6 X10*3/uL (0.6-4.8); Lymphocytes Percent Manual 5 % (20-40); Monocytes Absolute Manual 0.3 X10*3/uL (0.0-1.2); Monocytes Percent Manual 3 % (2-11); Neutrophils Percent Manual 73 % (45-73)
[2020-12-27 15:41] LABS: Platelet Estimate SLIGHTLY DECREASED (NORMAL); Platelet Morphology Comment NORMAL; RBC Morphology NORMAL
[2020-12-27 16:51] VITALS: TEMP 38.1
[2020-12-27] MEDS: Enoxaparin Sodium 40 MG/0.4 ML SYRINGE SUBCUT (17:43)
[2020-12-27] MEDS: 0.9 % Sodium Chloride Flush 3 ML SYRINGE IVFLUSH (17:43)
[2020-12-27 19:26] VITALS: BP 116/53; PULSE 106; RESP 18; TEMP 37.4; O2SAT 98
--- NOTE | 2020-12-27 22:05 | PM.IDPN ---
Subjective Subjective Date of Service: 12/27/20 Interval History: he has Group B strep bacteremia temperature decreased and legs slightly more clear Objective Data Labs CBC & Chem 7: 12/27/20 12:12 12/26/20 07:06 Labs: Laboratory Results - last 24 hr 12/27/20 12:12 WBC 11.2 H RBC 4.06 L Hgb 13.4 L Hct 39.4 L MCV 97.0 MCH 33.0 MCHC 34.0 RDW 13.5 Plt Count 157 L MPV 9.0 L Absolute Nucleated RBC 0.000 Nucleated RBC % (auto) 0.0 Neutrophils % (Manual) 73 Band Neutrophils % 16 H Lymphocytes % (Manual) 5 L Atypical Lymphs % (Man) 2 Monocytes % (Manual) 3 Eosinophils % (Manual) 1 Abs Neuts (Manual) 10.0 H Lymphocytes # (Manual) 0.6 Atyp Lymphs # (Manual) 0.2 Monocytes # (Manual) 0.3 Eosinophils # (Manual) 0.1 Platelet Estimate SLIGHTLY DECREASED Plt Morphology Comment NORMAL RBC Morphology NORMAL Microbiology Microbiology Results: Microbiology 12/25/20 21:42 Blood - Venous Blood Culture - Preliminary Strep agalactiae (Grp B) 12/25/20 20:07 Blood - Venous Blood Culture - Preliminary Strep agalactiae (Grp B) 12/25/20 21:35 Urine clean catch - Clean Catch Midstream Urine Culture - Final No growth. Physical Exam Vital Signs: Vital Signs: Last Vital Signs Temp 99.3 F 12/27/20 19:26 Pulse 106 H 12/27/20 19:26 Resp 18 12/27/20 19:26 BP 116/53 L 12/27/20 19:26 Pulse Ox 98 12/27/20 19:26 Body Mass Index 31.7 Const: General: cooperative Resp: Effort & Inspection: normal respiratory effort Cardio: Rate: regular rate Rhythm: regular rhythm GI: Palpation (GI): Soft to palpation and nontender Extrem: Other: decreased erythema legs Assessment and Plan Assessment and plan (1) Bilateral cellulitis of lower leg: Problem details: Group B strep bacteremia He has echo pending Status: Acute Assessment and Plan: Would continue IV Ceftriaxone until improving then finish with po Ceftin for 14 day total if no endocarditis suspicion on TTE If suspicion check MITUL Time Spent With Patient Time: Total time spent is greater than 50% in coordination of care (as documented) at patient's floor/unit and/or counseling patient: Time with patient: 15 - 24 minutes
[2020-12-28] VITALS: BP 132/62; PULSE 102; RESP 14; TEMP 36.9; O2SAT 97
[2020-12-28] MEDS: 0.9 % Sodium Chloride Flush 3 ML SYRINGE IVFLUSH ×2 (00:29→09:07)
[2020-12-28 03:58] VITALS: BP 124/51; PULSE 112; RESP 16; TEMP 36.4; O2SAT 96
[2020-12-28 08:00] VITALS: BP 133/70; PULSE 102; RESP 18; TEMP 37.3; O2SAT 96
[2020-12-28 08:36] LABS: Hematocrit 36.7 % (42-52); Hemoglobin 12.6 g/dl (14.0-18.0); Mean Corpuscular HGB Conc 34.3 g/dl (31.0-36.0); Mean Corpuscular Hemoglobin 32.6 pg (27.0-33.0); Mean Corpuscular Volume 95.1 fL (80-98); Mean Platelet Volume 9.2 fL (9.4-12.4); Platelet Count 161 X10*3/uL (160-400); Red Blood Count 3.86 X10*6/uL (4.60-5.80); Red Cell Distribution Width 13.4 % (11.0-16.0); White Blood Count 11.1 X10*3/uL (4.8-10.8)
[2020-12-28 08:46] LABS: Anion Gap 11 (12-20); Blood Urea Nitrogen 9 mg/dL (9-16); Carbon Dioxide 23 mmol/L (22-29); Chloride 108 mmol/L (96-108); Creatinine Clr Calc Pharmacy 132.8; Estimated Glomerular Filt Rate > 60; Glucose Random 96 mg/dL (60-115); Potassium 3.6 mmol/L (3.3-5.1); Sodium 138 mmol/L (135-145)
[2020-12-28 11:49] VITALS: BP 125/70; PULSE 92; RESP 18; TEMP 37.1; O2SAT 98
[2020-12-28] MEDS: cefTRIAXone sodium 2 GM in 0.9 % Sodium Chloride 50 ML IV (12:02)
--- NOTE | 2020-12-28 13:48 | P.DS_ITS ---
DS: Providers Provider Date of Service: 12/28/20 Date of admission: 12/25/20 23:15 Primary care physician: Richie Calixto MD Consults: 12/26/20 10:37 Consult to Infectious Diseases Routine Consulting Provider: Maria Fernanda Milian Reason for consultation: gram positive bacteremia, cellulitis / lymphedema, vancomycin allergy DS: Diagnosis Discharge Diagnosis (1) Sepsis: Status: Acute (2) Bacteremia due to group B Streptococcus: Status: Acute (3) Bilateral cellulitis of lower leg: Status: Acute DS: Medications Discharge Medications Home Medications: Home Medications Medication Instructions Recorded Confirmed ibuprofen 1 tab PO TID PRN 12/25/20 12/25/20 Previous Rx's Medication Instructions Recorded cefuroxime axetil 500 mg PO Q12H #28 tab 12/28/20 DS: Summary Hospital Course Hospital Course: Patient presented to the hospital with bilateral lower extremity cellulitis and sepsis in the setting of chronic lymphedema. He was started empirically on IV Z osyn. His blood cultures returned positive for group B strep. His antibiotics were tailored to IV ceftriaxone and a repeat blood culture was collected and is negative at the time of discharge. Time Spent with Patient Time attestation: Total time spent providing and/or coordinating discharge services: Discharge coordination time: Greater than 30 minutes Physical Exam Vital Signs: Vital Signs: Last Vital Signs Temp 98.8 F 12/28/20 11:49 Pulse 92 12/28/20 11:49 Resp 18 12/28/20 11:49 BP 125/70 12/28/20 11:49 Pulse Ox 98 12/28/20 11:49 Body Mass Index 31.7 Const: Other: General - no acute distress, appears comfortable Cardiovascular - regular rate and rhythm, S1-S2 Lungs - normal respiratory effort, clear to auscultation bilaterally, no wheezing Abdomen - soft, non-tender, no rebound or guarding Extremities - b/l chronic swelling due to lymphedema, erythema L > R, but improved from admission Neuro - awake and alert, no focal deficits DS: Data Data Completed and Pending Labs on day of discharge: Laboratory Results - last 24 hr 12/27/20 12/28/20 12/28/20 12:12 08:05 08:05 WBC 11.1 H RBC 3.86 L Hgb 12.6 L Hct 36.7 L MCV 95.1 MCH 32.6 MCHC 34.3 RDW 13.4 Plt Count 161 MPV 9.2 L Absolute Nucleated RBC 0.000 Nucleated RBC % (auto) 0.0 Neutrophils % (Manual) 73 Band Neutrophils % 16 H Lymphocytes % (Manual) 5 L Atypical Lymphs % (Man) 2 Monocytes % (Manual) 3 Eosinophils % (Manual) 1 Abs Neuts (Manual) 10.0 H Lymphocytes # (Manual) 0.6 Atyp Lymphs # (Manual) 0.2 Monocytes # (Manual) 0.3 Eosinophils # (Manual) 0.1 Platelet Estimate SLIGHTLY DECREASED Plt Morphology Comment NORMAL RBC Morphology NORMAL Sodium 138 Potassium 3.6 Chloride 108 Carbon Dioxide 23 Anion Gap 11 L BUN 9 Creatinine 0.85 Estim Creat Clear Calc 132.8 Estimated GFR > 60 Random Glucose 96 Calcium 8.0 L Preliminary micro results at discharge 12/27/20 09:21 Blood Culture - Preliminary Blood - Venous No growth after 24 hours. 12/27/20 09:20 Blood Culture - Preliminary Blood - Venous No growth after 24 hours. Discharge Plan Discharge Patient Disposition: Home, Self-Care Discharge Diagnosis: Bacteremia, Sepsis, Cellulitis, Lymphedema Referrals: Name,MD Richie [Primary Care Provider] - 1 Week Discharge Medications: New cefuroxime axetil 500 mg tablet 500 mg PO Q12H Qty: 28 RF: 0 Continued ibuprofen 800 mg tablet 1 tab PO TID PRN (Reason: Pain) RF: 0 Discharge Orders: Discharge Order (Routine); Ordered 12/28/20 Ordered By: Ed Fowler Diet: advance to usual diet Activity on Discharge: As tolerated Stand Alone Forms: Patient Portal Discharge page, Work/School Release Care Plan Goals: To stay healthy and out of the hospital. Health Concerns: Bactermia Lymphedema Cellulitis Plan of Treatment: Take Ceftin 500mg twice daily for 14 days total Assessment: 35 yo M with chronic lymphedema admitted for b/l cellulitis found to have bacteremia which cleared. Now being discharged home with 14 days of oral Ceftin.
--- NOTE | 2020-12-28 14:16 | MHC.CM.PN ---
IMM 12/28/20, PT DISCHARGING HOME SELF-CARE W/RETURN TO WORK NOTE, PT'S MOTHER FOR TRANSPORT.
== END 2020-12-28 16:00 | disposition home or self-care (01) | DRG 872 ==
LOC: HO.ED 21:27 → HO.EDOVER 23:26 → HO.S3 12-26 07:08
PROVIDERS: Physician Assistant Medical; Admitting Provider Hospitalist; Emergency Provider Student in an Organized Health Care Education/Training Program; PCP Internal Medicine Geriatric Medicine; Visit Provider Family Medicine
DX: A40.1 Sepsis due to streptococcus, group B (principal); L03.116 Cellulitis of left lower limb; L03.115 Cellulitis of right lower limb; B95.1 Streptococcus, group B, as the cause of diseases classified elsewhere; R65.20 Severe sepsis without septic shock; Z20.822 Contact with and (suspected) exposure to COVID-19; Z79.1 Long term (current) use of non-steroidal anti-inflammatories (NSAID); Z79.899 Other long term (current) drug therapy
CPT/HCPCS: 36415; 71046; 76882; 80048; 80076; 81001; 83605; 85007; 85025; 85027; 85610; 87040; 87086; 87147; 87186; 87205; 87635; 93306; 93971; 96365; 99285; J0696; J1650; J1885; J2543

== ENCOUNTER 2021-10-25 16:35 | Outpatient (REF) | payer MEDICARE, MEDICAID, SELFPAY ==
--- NOTE | ~2021-10-25 | XR_ITS ---
EXAMINATION: XR HAND, LEFT CLINICAL INFORMATION: History of BB middle finger left hand question removed. Pre-MRI COMPARISON: None TECHNIQUE: PA, lateral, and oblique views of the left hand. FINDINGS: The bones and soft tissues are normal. No fracture. Alignment is anatomic. Joint spaces are maintained. No erosions or soft tissue calcifications. No radiopaque foreign body seen on the middle finger. XR/XR hand LT min 3V IMPRESSION: No radiopaque metallic foreign body seen third digit distal finger.
--- NOTE | ~2021-10-25 | MR_ITS ---
EXAMINATION: MR BRAIN WITHOUT CONTRAST CLINICAL INFORMATION: Headaches. Prior head trauma. COMPARISON: None. TECHNIQUE: Multiplanar, multisequence imaging of the brain was performed without contrast. FINDINGS: No diffusion abnormalities are identified to suggest an acute or subacute infarct. The ventricles are normal in size with a cavum septum pellucidum. No mass effect or midline shift is seen. No brain parenchymal signal abnormality is noted. No extra-axial fluid collections are seen. The brainstem and cerebellum are normal. The gradient refocused acquisition is normal. The craniovertebral junction, marrow signal, and midline structures are normal. The major intracranial flow voids at the level of the [place] are preserved. The dural venous sinus flow voids are maintained. The mastoid air cells and paranasal sinuses are well aerated. MR/MR head/brain wo con IMPRESSION: No acute process. Normal MRI of the brain.
== END 2021-10-25 16:36 | disposition home or self-care (01) ==
LOC: HO.MRI 16:35
PROVIDERS: Absent Provider Internal Medicine Geriatric Medicine; PCP Internal Medicine Geriatric Medicine; Visit Provider Nurse Practitioner Family
DX: Z01.818 Encounter for other preprocedural examination (principal); R51.9 Headache, unspecified; S09.90XD Unspecified injury of head, subsequent encounter; M79.5 Residual foreign body in soft tissue
CPT/HCPCS: 70551; 73130

== ENCOUNTER 2024-07-23 16:52 | Outpatient (REF) | payer OTHER, SELFPAY ==
--- NOTE | ~2024-07-23 | US_ITS ---
EXAMINATION: US TRIPLEX LOWER EXTREMITY, LEFT CLINICAL INFORMATION: Left leg edema COMPARISON: Left lower extremity duplex on 12/26/2020 TECHNIQUE: Color-flow triplex imaging with spectral analysis and compression Doppler were performed on the left lower extremity. FINDINGS: Respiratory variation, normal compression and augmented flow are noted throughout the left lower extremity. The visualized common femoral vein, superficial femoral vein, profunda femoral vein, popliteal vein and midcalf peroneal and posterior tibial venous segments show no evidence of deep venous thrombosis. There is no Johnston's cyst. Prominent left inguinal lymph node. US/US venous duplex LE LT IMPRESSION: No evidence of deep venous thrombosis involving the left lower extremity. Electronically signed by: Laure Tejeda MD 07/25/2024 09:41 AM VAUGHN
== END 2024-07-23 16:53 | disposition home or self-care (01) ==
LOC: HO.US 16:52
PROVIDERS: PCP Internal Medicine Geriatric Medicine; Visit Provider Internal Medicine
DX: L03.116 Cellulitis of left lower limb (principal); R60.0 Localized edema
CPT/HCPCS: 93971

== ENCOUNTER 2024-08-04 12:19 | Outpatient (REF) | payer OTHER, SELFPAY ==
[2024-08-04 13:26] LABS: MANUAL DIFF FLAG NO
[2024-08-04 13:32] LABS: Basophils Percent Auto 0.2 % (0-2); Eosinophils Absolute Auto 0.1 X10*3/uL (0.0-0.4); Eosinophils Percent Auto 1.4 % (0-4); Hemoglobin 15.1 g/dl (14.0-18.0); Imm Gran Abs Auto 0.02 X10*3/uL (0.00-0.03); Imm Gran Pct Auto 0.4 % (0.0-0.4); Lymphocytes Absolute Auto 2.5 X10*3/uL (1.2-4.9); Lymphocytes Percent Auto 43.7 % (20-40); Mean Corpuscular HGB Conc 35.1 g/dl (31.0-36.0); Mean Corpuscular Hemoglobin 31.7 pg (27.0-33.0); Mean Corpuscular Volume 90.3 fL (80.0-98.0); Monocytes Absolute Auto 0.3 X10*3/uL (0.1-1.2); Monocytes Percent Auto 5.9 % (2-11); Neutrophils Absolute Auto 2.7 x10*3/uL (2.0-8.3); Neutrophils Percent Auto 48.4 % (45-73); Platelet Count 266 X10*3/uL (160-400); Red Blood Count 4.76 X10*6/uL (4.60-5.80); Red Cell Distribution Width 12.5 % (11.0-16.0); White Blood Count 5.6 X10*3/uL (4.8-10.8)
[2024-08-04 14:00] LABS: Anion Gap 11 (12-20); Blood Urea Nitrogen 16 mg/dL (9-16); Calcium 8.9 mg/dL (8.4-10.2); Carbon Dioxide 29 mmol/L (22-29); Chloride 106 mmol/L (96-108); Estimated Glomerular Filt Rate > 60; Glucose Random 87 mg/dL (60-115); Potassium 3.8 mmol/L (3.3-5.1); Sodium 142 mmol/L (135-145)
[2024-08-04 14:22] LABS: HBS Num1 73.59 mIU/mL (0-7.99); HBc Num1 0.27 S/CO (0.00-0.79); HBsAGNum1 0.41 S/CO (0.00-0.99); HIV AB/AG Nonreactive (Nonreactive); HIV Num 1 0.05 S/CO (0.00-0.99); Hepatitis B Core Antibody Nonreactive (Nonreactive); Hepatitis B Surface Antigen Negative (Negative); ~HepC Num1 0.21 S/CO (0.00-0.79); ~Hepatitis B Surface Antibody REACTIVE (Nonreactive); ~Hepatitis C Antibody Nonreactive (Nonreactive)
[2024-08-04 14:53] LABS: CT PCR NOT DETECTED (Not Detect.); NG PCR NOT DETECTED (Not Detect.)
== END 2024-08-04 12:20 | disposition home or self-care (01) ==
LOC: HO.HHCL 12:19
PROVIDERS: Visit Provider Nurse Practitioner Family
DX: Z00.00 Encounter for general adult medical examination without abnormal findings (principal); Z11.4 Encounter for screening for human immunodeficiency virus [HIV]; Z20.2 Contact with and (suspected) exposure to infections with a predominantly sexual mode of transmission; I89.0 Lymphedema, not elsewhere classified
CPT/HCPCS: 36415; 80048; 85025; 86704; 86706; 86803; 87340; 87389; 87491; 87591

== ENCOUNTER 2024-10-12 15:10 | Outpatient (AMB) | payer OTHER, SELFPAY ==
--- NOTE | 2024-10-12 15:16 | MHC.OFFVIS ---
Vital Signs 10/12/24 15:16 Height 5 ft 8 in Intake Visit Reasons: [employer]/PCP referral for Lymphedema Intake Note: [employer]/ PCP referral for bilateral LE lymphedema since age 7. Pt is wearing compression socks, no compression wraps. Does have lymphedema pumps. Pt was being seen by Dr. Gonzalez in [place] for a couple years but had change in insurance. Pt states left LE is worse than Right LE currently. Pt does state he had an injury as an adult that caused the left leg to become worse, right leg was worse previous to that. Accompanied by: Self / Same As Patient Allergies vancomycin Allergy (Unknown, Verified 10/12/24 15:22) Hives HPI HPI [employer]/PCP referral for Lymphedema: Details: Tesfaye, a pleasant 39-year-old male patient, is presenting today on a referral from his PCP for ongoing lymphedema concerns. He states he has had an issue with lymphedema since he was about 7 years old and has had many years of different treatments with little success. He does continue to utilize compression pumps daily, for 45 minutes at a time. He is supposed to use them twice a day but due to time constraints he is only able to get done once a day. He does get lymphedema flare/cellulitis for which he usually reaches out to his doctors in gets oral antibiotics which resolve the cellulitis. He has been ruled out for DVT in July. He uses compression stockings daily. He does elevate his legs when he gets a chance, particularly at night. [facility] Medical History Lymphedema Social History Household Members: Family Do you presently have visiting nurse or other home services: No Alcohol intake: current Alcohol intake frequency: holidays/special occasions only Substance Use Type: Marijuana service: No Current occupational status: unemployed Review of Systems Const Reports as per HPI and Denies weakness ENT Reports Normal hearing present and Denies dizziness Card Reports as per HPI, Denies chest pain, Denies chest pain at rest, Denies chest pain with activity, Denies dyspnea and Denies dyspnea on exertion Resp Reports as per HPI, Denies cough, Denies dyspnea and Denies dyspnea on exertion GI Reports as per HPI, Denies abdominal pain, Denies nausea and Denies vomiting Musc Denies numbness Skin/Breast Reports as per HPI, Denies erythema and Denies wounds Neuro Reports Normal hearing present, Denies dizziness, Denies numbness, Denies Sensory deficit (Neuro) and Denies weakness Psych Reports no additional complaints Endo Reports no additional complaints Physical Exam Const General: healthy appearing and no acute distress Orientation/consciousness: patient oriented x3 HEENT Head: Yes normal to inspection Ears: hearing grossly normal bilaterally Mouth: Normal oral and palatal mucosa present Resp Effort & Inspection: normal respiratory effort and able to speak in complete sentences Auscultation: clear to auscultation bilaterally Cardio Jugular venous distension: no JVD Rate: regular rate Rhythm: regular rhythm Heart sounds: S1 normal heart sound present and S2 normal heart sound present Bruits: no abdominal aortic bruits, no carotid bruits, no femoral bruits and no renal bruits Peripheral pulses: Peripheral pulses 2+ throughout GI Inspection: Yes normal to inspection Palpation (GI): No Abdominal aortic bruit present Skin General skin exam: no rashes or lesions noted Wounds: no wounds Hair: normal Neuro General: patient oriented x3 Cranial nerves: Yes Normal hearing present Cognition (Neuro): normal cognition Gait exam (Neuro): Normal gait present Motor exam (neuro): 5/5 motor strength present throughout Sensory Exam: No Sensory deficit (Neuro) Extrem Other: Bilateral lower extremities: +3 pitting edema noted. Difficult to palpate pulses. Skin is warm and dry. CEAP: C - 3 E - primary A - superficial P - reflux General: Yes normal to inspection, Yes full ROM, Yes capillary refill normal and Yes normal gait Assessment & Plan Assessment & Plan (1) Lymphedema of both lower extremities: Code(s): I89.0 - Lymphedema, not elsewhere classified Category: Medical Plan: Tesfaye is presenting today for concerns for ongoing lymphedema, he states he was 1st diagnosed around the age of 7. He has had multiple treatments for this but continues with a lymphedema. He does utilize his lymphedema compression pumps once a day for 45 minutes at a time. He is looking to get some further imaging/testing to see if there are any other medical issues with his lower legs. We have taken the liberty to order venous insufficiency ultrasound to rule out any venous insufficiency. He has recently been ruled out for DVT in July. We discussed the importance of continuing with the compression stockings in compression pumps daily. We discussed that if he can only do the compression pumps daily that maybe he could increase the time to an hour to an hour and a half per session. The patient had an opportunity to ask questions regarding the treatment plan. All questions were answered. Imaging studies, laboratory studies and physical exam results were discussed and reviewed in detail. No major barriers to understanding were identified. The patient expressed understanding and agreement with the above treatment plan. The patient is aware they should contact our office by phone for worsening of the current condition or the appearance of new symptoms. Thank you for allowing me to participate in the vascular care of this patient. If you have any questions or concerns regarding the treatment for the above condition please do not hesitate to contact me. The office telephone contact is [phone]. This note is constructed using voice recognition software. While every effort has been made to ensure accuracy, pneumatic jacketer errors may have been included. Thank you for allowing me to participate in the care of your patient. Yours sincerely, YASIR Shields Orders: Orders US venous duplex LE BI 1 Week I89.0 - Lymphedema, not elsewhere classified Coding Level of Care Code New Pt Level 4 (98402) Diagnoses Lymphedema of both lower extremities I89.0
--- OUTSIDE RECORDS SUMMARY | 2024-10-12 16:09 | XMS_ITS | Clinical Summary ---
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 Skin intact, no tenderness or warmth. Plan Referral to vascular surgeon Blood work Anxiety 08/09/2024 Assessment & Plan (08/09/2024 10:19 PM EST): Reports anxiety and PTSD from childhood trauma related to lymphedema at 7 years. Denies suicidal thoughts, harming self or others. Plan Referral to behavior therapy Dietary counseling 08/09/2024 Assessment & Plan (08/09/2024 10:23 PM EST): Obese BMI 35.46. Plan Eat 3 meals a day, especially breakfast Eat healthy and focus on healthyfood choices daily fruits, vegetables, grains, low fat milk, low carbohydrate and fat Maintain healthy weight. Exercise counseling 08/09/2024 Assessment & Plan (08/09/2024 10:29 PM EST): Obesity 35.45. Hx of lymphedema . Patient advised to loose 5-10 lbs in a year this maybe beneficiary. Educated patient swimming maybe beneficial Plan Be physically active at least 45 minutes a day Cutaneous skin tags 08/09/2024 Assessment & Plan (08/09/2024 10:32 PM EST): Positive for bothersome skin tags on the groin and trunk. Complains hit rubs against clothing. 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 Severe anxiety with panic 08/04/2024 Assessment & Plan (08/04/2024 1:20 PM EST): During IBH Consult Tesfaye presenting with excessive worry/anxiety, difficulty controlling worry, anxiety/worry associated to restlessness and/or feeling keyed-up/On edge , easily fatigued , difficulty concentrating and/or mind going blank , irritability, and sleep disturbance difficulty falling asleep, and Fear and Recurrent panic attacks (abrupt surge of intese aida or discomfort that reaches peak within minutes and during which time the following occur (4 or more) palpitations, trembling/shaking, sensation of shortness of breath/smothering, Chest pain/discomfort, dizzy/unsteady/light-headed/faint, numbness/tingling, fear of dying; for a period of 6-12 mo, for most or all symptoms in the context of unable to identify significant stressors. Tesfaye reports his anxiety comes and goes with no specific reason associated to it. Being diagnosed with a chronic medical condition when he was 7 years-old changed his life and mental well-being. He built resilience and was able to overcome depression and anxiety during youth. Lately, he feels panic symptoms are more frequent and sometimes he is not able to manage the severity of anxiety. clinician engaged patient with active/reflective listening. Reviewed and assessed for risk, current stressors and protective factors using open-ended questions. Validated patient's emotions and recognized his strengths and ability to overcome obstacle and difficulties in his life. Reinforce need to get additional support and seek out for MH services. Tesfaye will utilize [facility] services for OP therapy. Declined medication at this time as he would like to try talk therapy as plan A. clinician will follow-up during next medical appointment and offer additional support as needed. Encounter for adult wellness visit 08/03/2024 Assessment & Plan (08/09/2024 10:18 PM EST): 38 yrs old male with past medical hx of left leg edema, left leg cellulitis, left leg tinea pedis and bilateral lymphedema started at age of 7 yrs present to the clinic for transfer patient visit. Last wellness visit 02/09/2016. Alert and oriented,well nourished, good historian and communicating effectively. ROS and physical remarkable for bilateral lymphedema. Reports childhood trauma related to lymphedema. Denies suicidal thoughts, harming self or others. Plan All relevant lab work and referrals Patient education Dietary and exercise counseling Tinea pedis of left foot 07/20/2024 Assessment & Plan (07/20/2024 9:18 AM EST): On left toes Use clotrimazole cream bid x 2w, keep interdigital areas clan and dry. Apply Zinc oxide paste on interdigital areas and feet fold to prevent friction/irritation. Cellulitis of left lower extremity 07/20/2024 Assessment & Plan (08/09/2024 9:59 PM EST): Recently treated at [facility] for left leg infection 07/20/2024, prescribed clortrimazole 1% cream. At this visit cellulitis of left lower leg resolved. Plan Patient education Keep skin clean and moisturized Inspect skin for cuts and wounds daily.Treat cuts and wound immediately Keep nails short to avoid opening skin accidentally through scrathes Assessment & Plan (07/20/2024 9:19 AM EST): Take Duricef x 7-10d. Elevate leg and start wearing compression stockings ELVER, he'll be out of work x 2d. FU with PCP Order LE DVT US to ro DVT. Leg edema, left 07/20/2024 Encounters * This document contains information received from the source organization and may not represent a complete record from that organization. Date Type Department Care Team Description 08/04/2024 10:00 AM EST Office Visit [facility] [address] [place] [phone] Vilma Rosario FNP Lymphedema of both lower extremities (Primary Dx); Encounter for adult wellness visit; Cutaneous skin tags; Vision blurred; Anxiety; Dietary counseling; Exercise counseling; Cellulitis of left lower extremity 08/04/2024 Travel 07/27/[address] [facility] [address] [place], [place] [phone] Vilma Rosario FNP Pre-visit Planning (SDOH negative. Tobacco screening negative. ) 07/26/[address] [facility] [address] [place] [phone] Alla Colbert RN Results 07/23/[address] [facility] [address], [place] [phone] Yanet Miller MD 07/21/[address] [facility] [address] [place] [address] [phone] Viviana Lockhart MA CHART PREP 07/20/2024 9:00 AM EST Office Visit [facility] [address], [place] [phone] Yanet Miller MD Cellulitis of left lower extremity (Primary Dx); Tinea pedis of left foot; Leg edema, left from Last 3 Months Family History Medical History Relation Name Comments Dementia Maternal Grandmother Parkinsonism Maternal Grandmother Diabetes Mother Relation Name Status Comments Maternal Grandmother Mother Social History Tobacco Use Types Packs/Day Years Used Date Smoking Tobacco: Never Smokeless Tobacco: Never Tobacco Cessation:Counseling Given: Not Answered Depression Answer Date Recorded Patient Health Questionnaire-9 Score 8 09/21/2024 Patient Health Questionnaire-9 Score 8 09/21/2024 Last PHQ-9: Questionnaire Data Not on file 0 09/21/2024 Housing Stability Answer Date Recorded What is your housing situation today? I have ector moses 07/27/[address] you li ve. Do you have problems with any of the following? None of the above 07/27/2024 Food Insecurity Answer Date Recorded Within the past 12 months, y ou worried that your food would run out before you got money to buy more: Sometimes True 2023 Within the past 12 months,th e food you bought just didn't last and you didn't have enough money to get more: Sometimes True 08/04/2024 Transportation Answer Date Recorded In the past 12 months, has l ack of transportation kept you from medical appts, meetings, work or from getting things needed for daily living? No 07/27/2024 Utilities Answer Date Recorded In the past 12 months, has t he electric, gas, oil or water company threatened to shut off services in your home? Yes 08/04/2024 Depression Answer Date Recorded Patient Health Questionnaire-2 Score 3 09/21/2024 Internet Access Answer Date Recorded Internet Access Q1 Yes 07/27/2024 Internet Access Q2 Not on file 07/27/2024 Sex and Gender Information Value Date Recorded Sex Assigned at Male 07/15/2022 10:17 AM EDT Legal Sex Male 10:17 AM EDT Gender Identity Male 07/15/2022 10:17 AM EDT Sexual Orientation Straight 07/15/2022 10 :17 AM EDT Last Filed Vital Signs Vital Sign Reading Time Taken Comments Blood Pressure 129/80 08/04/2024 9:55 AM EST Pulse 64 08/04/2024 9:55 AM EST Temperature 36.8 ??C (98.2 ??F) 08/04/2024 9:55 AM ES T Respiratory Rate 20 08/04/2024 9:55 AM EST Oxygen Saturation 96% 07/20/2024 8:55 AM EST Inhaled Oxygen Concentration - - Weight 106 kg (233 lb 3.2 oz) 08/04/2024 9:55 AM EST Height 172.7 cm (5' 8 ) 08/04/2024 9:55 AM EST Body Mass Index 35.46 08/04/2024 9:55 AM EST Plan of Treatment Upcoming Encounters Date Type Department Care Team (Late st Contact Info) Description 11/05/2024 9:00 AM EST Office Visit [facility] [address] [place] [address] Vilma Rosario FNP [address] [place] [address] Health Maintenance Due Date Last Done Comments Alcohol/Substance Use Screening 1995 Family Planning (PISQ) 1998 Hepatitis B Vaccines (1 of 3 - 19+ 3-dose series) 2002 COVID-19 Vaccine ( season) 2024 02/14/2021, 01/17/2021 Influenza Vaccine (#1) 2024 7, 06/02/2017, 05/31/2016, Additional history exists SDOH Screening 08/04/2025 08/04/2024 Tobacco Screening 08/04/2025 08/04/2024 Depression Screening 09/21/2025 09/21/2024, 09/21/19 Lipid Panel 02/06/2027 02/06/2022 DTaP/Tdap/Td Vaccines (3 - Td or Tdap) 01/08/2032 01/07/2022, 12/08/2008 Zoster Vaccines (1 of 2) 2033 RSV Patients and Patients Aged 60 years or older (1 - 1-dose 75+ series) 2058 HIV Screening Completed 08/04/2024 Hepatitis C Screening Completed 08/04/2024 HIB Vaccines Aged Out No longer eligi ble based on patient's age to complete this topic HPV Vaccines Aged Out No longer eligi ble based on patient's age to complete this topic Hepatitis A Vaccines Aged Out No long er eligible based on patient's age to complete this topic IPV Vaccines Aged Out No longer eligi ble based on patient's age to complete this topic Meningococcal Vaccine Aged Out No josh lore eligible based on patient's age to complete this topic Pneumococcal Vaccine: Pediatrics (0 to 5 Years) and At-Risk Patients (6 to 64 Years) Aged Out No longer eligible based on patient's age to complete this topic RSV under 20 months Aged Out No longe r eligible based on patient's age to complete this topic Rotavirus Vaccines Aged Out No longer eligible based on patient's age to complete this topic Procedures Procedure Name Priority Date/Time Associated Diagnosis Comments BASIC METABOLIC PANEL Routine 08/04/2024 12:23 PM EST Encounter for adult wellness visit Lymphedema of both lower extremities HIV 1/2 ANTIGEN/ANTIBODY, FOURTH GENERATION W/RFL Routine 08/04/2024 12:23 PM EST Encounter for adult wellness visit CBC WITH AUTO DIFFERENTIAL Routine 08/04/2024 12:23 PM EST Encounter for adult wellness visit HEPATITIS B SURFACE ANTIBODY, QUALITATIVE Routine 08/04/2024 12:23 PM EST Encounter for adult wellness visit HEPATITIS B CORE AB TOTAL Routine 08/04/2024 12:23 PM EST Encounter for adult wellness visit HEPATITIS B SURFACE ANTIGEN, EIA Routine 08/04/2024 12:23 PM EST Encounter for adult wellness visit HEPATITIS C AB W/REFL TO HCV RNA, QN, PCR Routine 08/04/2024 12:23 PM EST Encounter for adult wellness visit CHLAMYDIA/N. GONORRHOEAE RNA, TMA, UROGENITAL Routine 08/04/2024 10:22 AM EST Encounter for adult wellness visit US VENOUS DUPLEX LE LT Routine 07/23/2024 5:09 PM EST LIPID PANEL, STANDARD Routine 02/06/2022 9:13 AM EDT from Last 3 Months or Most Recently Relevant to Health Maintenance Results * (ABNORMAL) CBC auto differential (08/04/2024 12:23 PM EST) White Blood Count 5.6 4.8 - 10.8 X10*3/uL [facility] Red Blood Count 4.76 4.60 - 5.80 X10*6/uL [facility] Hemoglobin 15.1 14.0 - 18.0 g/dl [facility] Hematocrit 43.0 42.0 - 52.0 % [facility] Mean Corpuscular Volume 90.3 80.0 - 98.0 fL [facility] Mean Corpuscular Hemoglobin 31.7 27.0 - 33.0 pg [facility] Mean Corpuscular HGB Conc 35.1 31.0 - 36.0 g/dl [facility] Red Cell Distribution Width 12.5 11.0 - 16.0 % [facility] Platelet Count 266 160 - 400 X10*3/uL [facility] Mean Platelet Volume 9.0(L) 9.4 - 12.4 fL [facility] Neutrophils Percent Auto 48.4 45 - 73 % [facility] Imm Gran Pct Auto 0.4 0.0 - 0.4 % [facility] Lymphocytes Percent Auto 43.7(H) 20 - 40 % [facility] Monocytes Percent Auto 5.9 2 - 11 % [facility] Eosinophils Percent Auto 1.4 0 - 4 % [facility] Basophils Percent Auto 0.2 0 - 2 % [facility] NRBC Pct Auto 0.0 0.0 - 0.2 /100WBC [facility] Neutrophils Absolute Auto 2.7 2.0 - 8.3 x10*3/uL [facility] Imm Gran Abs Auto 0.02 0.00 - 0.03 X10*3/uL [facility] Lymphocytes Absolute Auto 2.5 1.2 - 4.9 X10*3/uL [facility] Monocytes Absolute Auto 0.3 0.1 - 1.2 X10*3/uL [facility] Eosinophils Absolute Auto 0.1 0.0 - 0.4 X10*3/uL [facility] Basophils Absolute Auto 0.0 0.0 - 0.2 X10*3/uL [facility] NRBC Abs Auto 0.000 0.0 - 0.012 X10*3/uL [facility] Blood Venous blood specimen / Unknown 08/04/2024 12:23 PM EST 08/04/2024 1:22 PM EST us Vilmadanielle Rosario ORCHARD PRUNER LAB BLOOD ORDERABLES Final Res ult [facility] [address] [place] [phone] * Hepatitis C Antibody with Reflex to HCV, RNA, Quantitative, Real-Time PCR (08/04/2024 12:23 PM EST) Hepatitis C Antibody Nonreactive Nonreactive [facility] Comment:Antibodies to HCV no t detected; does not exclude early acuteHCV infection. Blood Venous blood specimen / Unknown 08/04/2024 12:23 PM EST 08/04/2024 1:16 PM EST [facility] BLOOD ORDERABLES Final Res ult Performing Organization Address [facility]/ZIP Co de Phone Number [facility] [address] [place] [phone] * Hepatitis B surface antigen, EIA (08/04/2024 12:23 PM EST) Hepatitis B Surface Ag Negative Negative [facility] Blood Venous blood specimen / Unknown 08/04/2024 12:23 PM EST 08/04/2024 1:16 PM EST [facility] BLOOD ORDERABLES Final Res ult Performing Organization Address [facility] Co de Phone Number [facility] [address] [place] [phone] * Hepatitis B Core Antibody, Total (08/04/2024 12:23 PM EST) Hepatitis B Core Antibody Nonreactive Nonreactive [facility] Blood Venous blood specimen / Unknown 08/04/2024 12:23 PM EST 08/04/2024 1:16 PM EST [facility] LAB BLOOD ORDERABLES Final Res ult Performing Organization Address [facility] Co de Phone Number [facility] [address] [place] [phone] * HIV-1/2 Antigen and Antibodies, Fourth Generation, with Reflexes (08/04/2024 12:23 PM EST) HIV AB/AG Nonreactive Nonreactive [facility] Comment:HIV-1 p24 Ag and/or HIV-1/HIV-2 Ab not detected.A test result that is nonreactive does not exclude thepossibility of exposure to or infection with HIV-1 and/orHIV-2. Nonreactive results in this assay for individualswith prior exposure to HIV-1 and/or HIV-2 may be due toantigen and antibody levels that are below the limit ofdetection of this assay.[employer] HIV Ag/Ab Combo assay result andsupplemental assay results should be interpreted inconjunction with the patient's clinical presentation,history and other laboratory results. If the results areinconsistent with clinical evidence, additional testing issuggested to confirm the result. Blood Venous blood specimen / Unknown 08/04/2024 12:23 PM EST 08/04/2024 1:16 PM EST Vilma [facility] BLOOD ORDERABLES Final Res ult Performing Organization Address [facility]/ZIP Co de Phone Number [facility] [address] [place] [phone] * Hepatitis B Surface Antibody, Qualitative (08/04/2024 12:23 PM EST) Pathologist [facility] ~Hepatitis B Surface Antibody REACTIVE Nonreactive [facility] Comment:REACTIVE: > 11.99 mI U/mL Blood Venous blood specimen / Unknown 08/04/2024 12:23 PM EST 08/04/2024 1:16 PM EST [facility] LAB BLOOD ORDERABLES Final Res ult Performing Organization Address [facility]/ZIP Co de Phone Number [facility] [address] [place] [phone] * (ABNORMAL) Basic Metabolic Panel (08/04/2024 12:23 PM EST) Pathologist [facility] Sodium 142 135 - 145 mmol/L [facility] Potassium 3.8 3.3 - 5.1 mmol/L [facility] Chloride 106 96 - 108 mmol/L [facility] Carbon Dioxide 29 22 - 29 mmol/L [facility] Anion Gap 11(L) 12 - 20 [facility] Urea Nitrogen (BUN) 16 9 - 16 mg/dL [facility] Creatinine, Serum 1.05 0.5 - 1.4 mg/dL [facility] Estimated Glomerular Filt Rate >60 [facility] Comment:Chronic Kidney Disea se: Estimated GFR < 60 mL/min/1.09t7Magrch Kidney Disease: Estimated GFR < 15 mL/min/1.73m2 Glucose 87 60 - 115 mg/dL [facility] Calcium 8.9 8.4 - 10.2 mg/dL [facility] Blood Venous blood specimen / Unknown 08/04/2024 12:23 PM EST 08/04/2024 1:16 PM EST us Vilma Rosario [facility] LAB BLOOD ORDERABLES Final Res ult [facility] [address] [place] [phone] * Chlamydia/N. Gonorrhoeae RNA, TMA, Urogenitial (08/04/2024 10:22 AM EST) CT PCR NOT DETECTED Not Detect. [facility] Comment:A not detected test result does not exclude the possibilityof infection because test results can be affected byimproper specimen collection, concurrent antibiotic therapy,or the number of organisms in the specimen which may bebelow the sensitivity of the test. As with many diagnostictests, results from the Xpert CT/NG assay should beinterpreted in conjunction with other laboratory andclinical data available to the clinician.Xpert CT/NG performance has not been evaluated in patientsless than 14 years of age. The assay should not be used forthe evaluationof suspected sexual abuse or for other medico-legalindications. Additional testing is recommended in anycircumstance when false positive or false negative resultscould lead to adverse medical, social or psychologicalconsequences. NG PCR NOT DETECTED Not Detect. [facility] Comment:A not detected test result does not exclude the possibilityof infection because test results can be affected byimproper specimen collection, concurrent antibiotic therapy,or the number of organisms in the specimen which may bebelow the sensitivity of the test. As with many diagnostictests, results from the Xpert CT/NG assay should beinterpreted in conjunction with other laboratory andclinical data available to the clinician.Xpert CT/NG performance has not been evaluated in patientsless than 14 years of age. The assay should not be used forthe evaluationof suspected sexual abuse or for other medico-legalindications. Additional testing is recommended in anycircumstance when false positive or false negative resultscould lead to adverse medical, social or psychologicalconsequences. Urine, Random 08/04/2024 10: 22 AM EST 08/04/2024 1:06 PM EST Narrative [facility] - 08/04/2024 2:54 PM EST Urine us Vilma Rosario [facility] MICROBIOLOGY - GENERAL ORD ERABLES Final Result [facility] [address] [place] [phone] * US VENOUS DUPLEX LE LT (07/23/2024 5:09 PM EST) Anatomical Region Laterality Modality Abdomen Ultrasound 07/23/2024 5:09 PM EST Narrative 07/25/2024 9:44 AM EST ? [facility] ?[address] ?[place] [address] ? Ultrasound Report ? Signed ? Patient: Merlos,Tesfaye ?MR#: [id number] ? : 1985 ?Acct:[id number] ? Age/Sex: 38 / M ?ADM Date: 07/23/24 ? Loc: HO.US ? Attending Dr: Yanet Miller MD ? Ordering Physician: Yanet Miller MD ?? Date of Service: 07/23/24 ?? Procedure(s): US venous duplex LE LT ?? Accession Number(s): [id number] ? cc: Yanet Miller MD; Name,Richie GLASER ? EXAMINATION: ?? US TRIPLEX LOWER EXTREMITY, LEFT ? CLINICAL INFORMATION: ?? Left leg edema ? COMPARISON: ?? Left lower extremity duplex on 12/26/2020 ? TECHNIQUE: ?? Color-flow triplex imaging with spectral analysis and compression ?? Doppler were performed on the left lower extremity. ? FINDINGS: ?? Respiratory variation, normal compression and augmented flow are noted ?? throughout the left lower extremity. The visualized common femoral ?? vein, superficial femoral vein, profunda femoral vein, popliteal vein ?? and midcalf peroneal and posterior tibial venous segments show no ?? evidence of deep venous thrombosis. ? There is no Johnston's cyst. Prominent left inguinal lymph node. ? / venous duplex LE LT ?? IMPRESSION: ?? No evidence of deep venous thrombosis involving the left lower ?? extremity. ? Electronically signed by: ??Laure Tejeda MD ??07/25/2024 09:41 AM EST ? Dictated By: ?Laure Tejeda MD ? Signed By: ?<Electronically signed by Laure Tejeda MD in OV> ? 07/25/24 0941 ? DD/ 1709 ? TD/TT: 07/23/24 1715 ? Bell Captain: PN ? Procedure Note Lidia, Vilma - 07/25/2024 [place] [id number] Ultrasound Report Signed Patient: Toni Merlos#: [id number] : 1985Acct:[id number] Age/Sex: 38 / MADM Date: 07/23/24 Loc: HO. Attending Dr: Yanet Miller MD Ordering Physician: Yanet Miller MD Date of Service: 07/23/24 Procedure(s): US venous duplex [facility] Accession Number(s): [id number] cc: Yanet Miller MD; Name,Richie GLASER EXAMINATION: US TRIPLEX LOWER EXTREMITY, LEFT CLINICAL INFORMATION: Left leg edema COMPARISON: Left lower extremity duplex on 12/26/2020 TECHNIQUE: Color-flow triplex imaging with spectral analysis and compression Doppler were performed on the left lower extremity. FINDINGS: Respiratory variation, normal compression and augmented flow are noted throughout the left lower extremity. The visualized common femoral vein, superficial femoral vein, profunda femoral vein, popliteal vein and midcalf peroneal and posterior tibial venous segments show no evidence of deep venous thrombosis. There is no Johnston's cyst. Prominent left inguinal lymph node. US/US venous duplex LE LT IMPRESSION: No evidence of deep venous thrombosis involving the left lower extremity. Electronically signed by: Laure Tejeda MD 07/25/2024 09:41 AM EST Dictated By: Laure Tejeda MD Signed By: <Electronically signed by Laure Tejeda MD in OV> 07/25/[address] DD/ 08 TD/TT: 07/23/24 1715 Bell Captain: PN Yanet Miller MD [facility] PROCEDURES Edited Result - Final * (ABNORMAL) LIPID PANEL, STANDARD (02/06/2022 9:13 AM EDT) Chol/HDLC Ratio 3.5 <5.0 (calc) [facility] Cholesterol, Total 111 <200 mg/dL [facility] HDL Cholesterol 32(L) > OR = 40 mg/dL [facility] LDL Cholesterol 64 mg/dL (calc) [facility] Comment: Reference range: <100 ?? Desirable range <100 mg/dL for primary prevention; ?? <70 mg/dL for patients with CHD or diabetic patients ?? with > or = 2 CHD risk factors. ?? LDL-C is now calculated using the Ronald ?? calculation, which is a validated novel method providing ?? better accuracy than the Friedewald equation in the ?? estimation of LDL-C. ?? Kris MAGANA et al. GIOVANNY. 2013;310(19): 8449-9619 ?? (http://education.ToolWire.TUTORize/faq/FGC988) Non-HDL Cholesterol 79 <130 mg/dL (calc) [facility] SYSTEM Comment: For patients with diabetes plus 1 major ASCVD risk ?? factor, treating to a non-HDL-C goal of <100 mg/dL ?? (LDL-C of <70 mg/dL) is considered a therapeutic ?? option. Triglycerides 73 <150 mg/dL [facility]/06/2022 9:13 AM EDT us Richie Name LAB BLOOD ORDERABLES Final Resul t [facility] Formerly [facility] Anywhere [address] from Last 3 Months or Most Recently Relevant to Health Maintenance Insurance [facility] , [address] [place] [address] Care Teams Structural Steel Worker Apprentice Relationship Specialty Start Date End Date Vilma Rosario FNP [address] [place] [id number] PCP - General Family Medicine 07/13/24
== END 2024-10-12 15:44 | disposition home or self-care (01) ==
PROVIDERS: PCP Nurse Practitioner Family; Visit Provider Physician Assistant Surgical
DX: I89.0 Lymphedema, not elsewhere classified (principal)
CPT/HCPCS: 99204

== ENCOUNTER → 2024-10-12 15:10 | Outpatient (BNVA) | payer OTHER, SELFPAY | PROVIDERS: PCP Nurse Practitioner Family; Visit Provider Physician Assistant Surgical ==

== ENCOUNTER 2024-10-22 16:13 | Outpatient (REF) | payer OTHER, SELFPAY ==
--- NOTE | ~2024-10-22 | US_ITS ---
US/US venous duplex LE BI IMPRESSION: No evidence of deep venous thrombosis involving the bilateral lower extremities to the level of the popliteal veins. Bilateral calf veins were not visualized due to body habitus and bilateral calf swelling. Electronically signed by: Antionette Millard MD 10/25/2024 05:44 AM VAUGHN
== END 2024-10-22 16:14 | disposition home or self-care (01) ==
LOC: HO.US 16:13
PROVIDERS: PCP Nurse Practitioner Family; Visit Provider Physician Assistant Surgical
DX: I89.0 Lymphedema, not elsewhere classified (principal); R60.0 Localized edema
CPT/HCPCS: 93970

== ENCOUNTER 2024-11-30 12:59 | Outpatient (REF) | payer OTHER, SELFPAY ==
--- NOTE | ~2024-11-30 | US_ITS ---
EXAMINATION: US LOWER EXTREMITY VENOUS (REFLUX EXAM), BILATERAL CLINICAL INFORMATION: Lymphedema. COMPARISON: October 22, 2024. TECHNIQUE: Color flow triplex imaging and compression Doppler was performed to evaluate both the deep and the superficial systems bilaterally. To evaluate the superficial system, the examination was performed in the upright position. Color-flow Doppler ultrasound and compression ultrasound were utilized. In addition, maneuvers were utilized to demonstrate reflux. FINDINGS: 1. DEEP VENOUS ULTRASOUND OF THE RIGHT LOWER EXTREMITY: Common Femoral Vein: Compressible, normal respiratory variation and augmented flow. Femoral Vein: Compressible, normal color flow and augmentation. Popliteal Vein: Compressible, normal augmentation. Deep Reflux: There is reflux (952-1656 ms) in the deep venous system. There is no evidence of a Johnston's cyst. 2. SUPERFICIAL ULTRASOUND WITH DOPPLER OF RIGHT LOWER EXTREMITY: GREAT SAPHENOUS VEIN: Saphenofemoral Junction: 1.0 cm; Reflux: 796 ms Proximal Thigh: 0.8 cm; Reflux: 1324 ms Mid Thigh: 0.4 cm; Reflux: 1028 ms Distal Thigh: 0.3 cm; Reflux: 928 ms At Knee: 0.4 cm; Reflux: 1028 ms Proximal Calf: 0.6 cm; Reflux: 1544 ms Mid Calf: 0.3 cm; Reflux: 1140 ms Distal Calf: 0.3 cm; Reflux: 1240 ms DUPLICATED MEDIAL GREAT SAPHENOUS VEIN: Diameter: None imaged Reflux: NA DUPLICATED LATERAL GREAT SAPHENOUS VEIN: Diameter: None imaged Reflux: NA SMALL SAPHENOUS VEIN: Saphenopopliteal Junction: 0.4 cm; Reflux: 700 ms Proximal: 0.3 cm; Reflux: 956 ms Distal: 0.4 cm; Reflux: 1324 ms VEIN OF GIACOMINI: Size: NA Reflux: NA PERFORATORS: Location: Mid thigh proximal calf. Size: 0.2-0.3 cm. Reflux: 1536 ms in the proximal calf. VARICOSITIES: Location: Proximal thigh and calf. Size: 0.3-0.7 cm. Reflux: 9157-3626 ms. 3. DEEP VENOUS ULTRASOUND OF THE LEFT LOWER EXTREMITY: Common Femoral Vein: Compressible, normal respiratory variation and augmented flow. Femoral Vein: Compressible, normal color flow and augmentation. Popliteal Vein: Compressible, normal augmentation. Deep Reflux: Venous reflux throughout the deep venous system (2921-6406 ms).. There is no evidence of a Johnston's cyst. 4. SUPERFICIAL ULTRASOUND WITH DOPPLER OF LEFT LOWER EXTREMITY: GREAT SAPHENOUS VEIN: Saphenofemoral Junction: 0.7 cm; Reflux: 0 ms Proximal Thigh: 0.6 cm; Reflux: 1308 ms Mid Thigh: 0.6 cm; Reflux: 1840 ms Distal Thigh: 0.5 cm; Reflux: 1436 ms At Knee: 0.4 cm; Reflux: 2260 ms Proximal Calf: 0.7 cm; Reflux: 1204 ms Mid Calf: Not seen. Distal Calf: 0.5 cm; Reflux: 1116 ms DUPLICATED MEDIAL GREAT SAPHENOUS VEIN: Diameter: None imaged Reflux: NA DUPLICATED LATERAL GREAT SAPHENOUS VEIN: Diameter: None imaged. Reflux: NA SMALL SAPHENOUS VEIN: Saphenopopliteal Junction: 0.4 cm; Reflux: 1404 ms Proximal: 0.3 cm; Reflux: 1192 ms Distal: 0.4 cm; Reflux: 1380 ms VEIN OF GIACOMINI: Size: NA Reflux: NA PERFORATORS: Location: None imaged Size: NA Reflux: NA VARICOSITIES: Location: Throughout the thigh and calf. Size: 0.3-0.6 cm. Reflux: 576-1348 ms. US/US venous insuf bilat IMPRESSION: Right: Venous insufficiency throughout the great and small saphenous vein and the deep venous system. Varices and perforators with reflux. Left: Venous insufficiency throughout the great and small saphenous veins and deep venous system. Varices with reflux.. Electronically signed by: Sonny Mathews MD 11/30/2024 03:57 PM EDT
== END 2024-11-30 13:00 | disposition home or self-care (01) ==
LOC: HO.US 12:59
PROVIDERS: PCP Nurse Practitioner Family; Visit Provider Physician Assistant Surgical
DX: I89.0 Lymphedema, not elsewhere classified (principal); I87.2 Venous insufficiency (chronic) (peripheral)
CPT/HCPCS: 93970

== ENCOUNTER → 2024-11-30 13:01 | Outpatient (BNV) | payer OTHER, SELFPAY | PROVIDERS: PCP Nurse Practitioner Family; Visit Provider Radiology Diagnostic Radiology | DX: I89.0 Lymphedema, not elsewhere classified (principal); I87.2 Venous insufficiency (chronic) (peripheral) | CPT/HCPCS: 93970 ==

== ENCOUNTER 2025-01-07 08:31 | Outpatient (AMB) | payer OTHER, SELFPAY ==
--- NOTE | 2025-01-07 08:33 | A.OFFVIS_ITS ---
Intake Visit Reasons: Left GSV RFA Accompanied by: Self / Same As Patient Allergies vancomycin Allergy (Unknown, Verified 01/07/25 08:34) [facility] Medical History Lymphedema Social History Household Members: Family Do you presently have visiting nurse or other home services: No Alcohol intake: current Alcohol intake frequency: holidays/special occasions only Substance Use Type: Marijuana service: No Current occupational status: unemployed Office Procedures Vascular Office Procedure Details Details: Diagnosis: Varicose veins with inflammation of left leg Procedure: Endovenous radiofrequency ablation of the left great saphenous vein(s) of the lower extremity. Anesthesia: Local infiltration to cc, Tumescent 350 cc. Estimated Blood Loss: minimal Specimen: Varicose veins The patient was transferred to the procedure suite and the insufficient saphenous vein was mapped by ultrasound and diagrammed on the overlying skin. The depth and diameter of the vein(s) to be treated was documented. The varicose tributary veins and suitable access sites were identified and mapped as well. The patient was then positioned supine on the procedure table. The affected limb was prepped and draped in the usual sterile fashion. The RF catheter was placed on the sterile field, flushed and wiped down, prepared, and connected by a sterile cable. The patient was placed in supine position and local anesthesia was instilled in the skin overlying the access site. A skin incision was made overlying the identified and mapped great saphenous vein entry site. The vein was accessed using ultrasound guidance and the Seldinger technique, a guide wire was introduced through the needle, which was then exchanged over the guide wire for a 6F sheath, which was secured in place. The guide wire was removed and the sheath was flushed. The RF catheter was placed into the vein through the sheath and preferentially, imaging was used to place the catheter tip just inferior to the superficial epigastric vein to preserve normal physiological flow in that vein. Additionally, it was confirmed by ultrasound guidance that the catheter tip was also placed a minimum of 1.5cm distal to the saphenofemoral junction. After the RF catheter position was verified by ultrasound, tumescent anesthesia was infiltrated, under ultrasound guidance, precisely into the perivenous compartment along the entire length of vein from the entry site to the saphenofemoral junction until a halo of fluid was noted around the vein. The patient was then placed in supine position to further exsanguinate the superficial venous system. After RF catheter position was again confirmed with ultrasound imaging, and under direct external compression along the length of the heating element, RF energy was applied. The vein was segmentally ablated by heating a 8 cm segment and then indexing the catheter forward by 7.5 cm until the treatment length is completed. Device temperature was maintained at 120 plus or minus 5 degrees C with an initial power level of 40W dropping to below 20W for each treatment. Total vein length treated 40 cm Total cycles of RF 6. Repeat ultrasound of the saphenous vein was performed, confirming successful treatment. The catheter and sheath were withdrawn and hemostasis established with direct pressure. After assuring hemostasis, the skin incision over the saphenous vein was closed with a bandage and a compression wrap, and/ or graduated compression stocking was applied from the level of the foot to the most proximal level of the thigh. 55193 - Endovenous RF, 1st Vein All charges added?: Procedure code (CPT) selection complete Assessment & Plan Assessment & Plan (1) Varicose veins of left lower extremity with inflammation: Comment: 01/07/2025 - left great saphenous vein radiofrequency ablation Code(s): I83.12 - Varicose veins of left lower extremity with inflammation Category: Medical Plan: See op note Coding Level of Care Code Procedure Only Diagnoses Varicose veins of left lower extremity with inflammation I83.12 CPT Codes Details - Vascular 1: 34875 - Endovenous RF, 1st Vein ([id number])
--- OUTSIDE RECORDS SUMMARY | 2025-01-07 08:35 | XMS_ITS | Clinical Summary ---
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 09/21/2024 Assessment & Plan (11/05/2024 11:29 AM EST): During IBH Consult Tesfaye presenting with depressed mood, Tearful, crying spells , hopelessness, irritable mood, loss of interests/pleasure , sense of isolation/loneliness , isolating, fatigue/loss of energy, worthlessness, inappropriate/excessive guilt , difficulty concentrating, indecisiveness and excessive worry/anxiety, difficulty controlling worry, anxiety/worry associated to restlessness and/or feeling keyed-up/On edge , easily fatigued , difficulty concentrating and/or mind going blank , and irritability, and Fear ; for a period of 18+ mo, for most or all symptoms in the context of chronic mental health problems. Pt reports being able to manage sxs for most part. Anxiety and depression still present. He's able to cope by doing breathing exercises and relying on his . Family is identified as main value. Pt avoids having arguments and/or conflicts which leads to increase anxiety. Not taking medication at this time. clinician engaged patient with active/reflective listening. Reviewed and assessed for risk, current stressors and protective factors using open-ended questions. Validated patient's emotions and recognized his strengths and ability to overcome obstacle and difficulties in his life. Tesfaye was referred to [facility] in [place]. Pt reports showing up on day of the appointment, but agency was closed due to bad weather. He did not receive any call for cancellation or r/s even thought pt left several messages. - Pt completed intake with [facility] and he will be starting services with them. clinician will provide additional support as needed. Lymphedema of both lower extremities 08/09/2024 Assessment [...] Complains hit rubs against clothing. 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 Tesfaye will utilize [facility] services for OP therapy. Declined medication at [...] EST): [facility] infection 07/20/2024, prescribed clortrimazole [...] to ro DVT. Leg edema, left 07/20/2024 Acute back pain with sciatica 04/15/2018 Lipoma of torso 02/05/2018 Cellulitis of lower limb 03/20/2016 Tinea pedis 03/11/2014 Seborrheic dermatitis of scalp 12/28/2009 Decreased hearing 12/08/2008 Overview (10/28/2024): History of recurrent ear infections as child Depression 12/08/2008 Encounters * This document contains information received from the source organization and may not represent a complete record from that organization. Date Type Department Care Team Description 12/02/2024 1:45 PM EDT Office Visit [facility] [address] [place] [phone] Germaine Manning OD Presbyopia (Primary Dx) 12/02/2024 Travel 11/05/2024 9:00 AM EST Office Visit [facility] [address] [place] [address] Vilma Rosario, FRANCESCA Lymphedema of both lower extremities (Primary Dx); Severe anxiety with panic 10/28/2024 Telephone [facility] [address] [facility] [place] [address] Patricia Arellano MA Chart Prep 10/22/2024 Orders Only [facility] External Provider, [facility] from Last 3 Months Family History Medical History Relation Name Comments Dementia Maternal Grandmother Parkinsonism Maternal Grandmother Diabetes Mother Relation Name Status Comments Maternal Grandmother Mother Social History Tobacco Use Types Packs/Day Years Used Date Smoking Tobacco: Never Smokeless Tobacco: Never Tobacco Cessation:Counseling Given: Not Answered Depression Answer Date Recorded Patient Health Questionnaire-9 Score 7 11/05/2024 Patient Health Questionnaire-9 Score 7 11/05/2024 Last PHQ-9: Questionnaire Data Not on file 0 11/05/2024 Housing Stability Answer Date Recorded What is [...] Date Recorded Patient Health Questionnaire-2 Score 3 11/05/2024 Internet Access Answer Date Recorded Internet Access [...] Sign Reading Time Taken Comments Blood Pressure 145/80 11/05/2024 9:25 AM EST Pulse 90 11/05/2024 9:25 AM EST Temperature 36.9 ??C (98.5 ??F) 11/05/2024 9:25 AM ES T Respiratory Rate 20 11/05/2024 9:25 AM EST Oxygen Saturation 98% 11/05/2024 9:25 AM EST Inhaled Oxygen Concentration - - Weight 104 kg (229 lb) 11/05/2024 9:25 AM EST Height 172.7 cm (5' 8 ) 11/05/2024 9:25 AM EST Body Mass Index 34.82 11/05/2024 9:25 AM EST Plan of Treatment Upcoming Encounters Date Type Department Care Team (Late st Contact Info) Description 01/28/2025 1:45 PM EDT Office Visit [facility] [address] [place] [address] Sissy Toledo MD [address] [place] [address] Health Maintenance Due Date Last Done Comments Family Planning (PISQ) 1998 Hepatitis B Vaccines (1 of 3 - 19+ 3-dose series) 2002 COVID-19 Vaccine ( season) 2024 02/14/2021, 01/17/2021 Influenza Vaccine (#1) 2024 7, 06/02/2017, 05/31/2016, Additional history exists SDOH Screening 08/04/2025 08/04/2024 Alcohol/Substance Use Screening 11/05/2025 11/05/2024 Depression Screening 11/05/2025 11/05/2024, 11/05/19 Tobacco Screening 12/02/2025 12/02/2024 Lipid Panel 02/06/2027 02/06/2022 DTaP/Tdap/Td Vaccines (3 [...] 5 Years) and At-Risk Patients (6 to 49) Years) Aged Out No longer eligible based on patient's age to complete this topic RSV under 20 months Aged Out No longe r eligible based on patient's age to complete this topic Rotavirus Vaccines Aged Out No longer eligible based on patient's age to complete this topic Procedures Procedure Name Priority Date/Time Associated Diagnosis Comments [facility] US LOWER EXTREMITY VENOUS INSUFFICIENCY BILATERAL Routine 11/30/2024 1:[address] [facility] US LOWER EXTREMITY VENOUS DUPLEX BILATERAL Routine 10/22/2024 4:21 PM EST HEPATITIS C AB W/REFL TO HCV RNA, QN, PCR Routine 08/04/2024 12:23 PM EST Encounter for adult wellness visit HIV 1/2 ANTIGEN/ANTIBODY, FOURTH GENERATION W/RFL Routine 08/04/2024 12:23 PM EST Encounter for adult wellness visit LIPID PANEL, STANDARD Routine 02/06/2022 9:13 AM EDT from Last 3 Months or Most Recently Relevant to Health Maintenance Results * [facility] US Lower Extremity Venous Insufficiency Bilateral (11/30/2024 1:19 PM EDT) 11/30/2024 1:19 PM EDT Narrative [facility] - 11/30/2024 4:00 PM EDT ? [facility] ?[address] ?[place] [address] ? Ultrasound Report ? Signed ? Patient: Merlos,Tesfaye ?MR#: [id number] ? : 1985 ?Acct:[id number] ? Age/Sex: 39 / M ?ADM Date: 11/30/24 ? Loc: HO.US ? Attending Dr: Elen Horan PA-C ? Ordering Physician: Elen Horan PA-C ?? Date of Service: 11/30/24 ?? Procedure(s): US venous insuf bilat ?? Accession Number(s): [id number] ? cc: Elen Horan PA-C; Vilma Rosario ? EXAMINATION: ?? US LOWER EXTREMITY VENOUS (REFLUX EXAM), BILATERAL ? CLINICAL INFORMATION: ?? Lymphedema. ? COMPARISON: ?? October 22, 2024. ? TECHNIQUE: ?? Color flow triplex imaging and compression Doppler was performed to ?? evaluate both the deep and the superficial systems bilaterally. To ?? evaluate the superficial system, the examination was performed in the ?? upright position. Color-flow Doppler ultrasound and compression ?? ultrasound were utilized. In addition, maneuvers were utilized to ?? demonstrate reflux. ? FINDINGS: ? 1. DEEP VENOUS ULTRASOUND OF THE RIGHT LOWER EXTREMITY: ?? Common Femoral Vein: Compressible, normal respiratory variation and ?? augmented flow. ? Femoral Vein: Compressible, normal color flow and augmentation. ?? Popliteal Vein: Compressible, normal augmentation. ? Deep Reflux: There is reflux (952-1656 ms) in the deep venous system. ? There is no evidence of a Johnston's cyst. ? 2. SUPERFICIAL ULTRASOUND WITH DOPPLER OF RIGHT LOWER EXTREMITY: ? GREAT SAPHENOUS VEIN: ?? Saphenofemoral Junction: 1.0 cm; Reflux: 796 ms ?? Proximal Thigh: 0.8 cm; Reflux: 1324 ms ?? Mid Thigh: 0.4 cm; Reflux: 1028 ms ?? Distal Thigh: 0.3 cm; Reflux: 928 ms ?? At Knee: 0.4 cm; Reflux: 1028 ms ?? Proximal Calf: 0.6 cm; Reflux: 1544 ms ?? Mid Calf: 0.3 cm; Reflux: 1140 ms ?? Distal Calf: 0.3 cm; Reflux: 1240 ms ? DUPLICATED MEDIAL GREAT SAPHENOUS VEIN: ?? Diameter: None imaged ?? Reflux: NA ? DUPLICATED LATERAL GREAT SAPHENOUS VEIN: ?? Diameter: None imaged ?? Reflux: NA ? SMALL SAPHENOUS VEIN: ?? Saphenopopliteal Junction: 0.4 cm; Reflux: 700 ms ?? Proximal: 0.3 cm; Reflux: 956 ms ?? Distal: 0.4 cm; Reflux: 1324 ms ? VEIN OF GIACOMINI: ?? Size: NA ?? Reflux: NA ? PERFORATORS: ?? Location: Mid thigh proximal calf. ?? Size: 0.2-0.3 cm. ?? Reflux: 1536 ms in the proximal calf. ? VARICOSITIES: ?? Location: Proximal thigh and calf. ?? Size: 0.3-0.7 cm. ?? Reflux: 5744-9141 ms. ? 3. DEEP VENOUS ULTRASOUND OF THE LEFT LOWER EXTREMITY: ?? Common Femoral Vein: Compressible, normal respiratory variation and ?? augmented flow. ? Femoral Vein: Compressible, normal color flow and augmentation. ?? Popliteal Vein: Compressible, normal augmentation. ? Deep Reflux: Venous reflux throughout the deep venous system (9353-2132 ?? ms).. ? There is no evidence of a Johnston's cyst. ? 4. SUPERFICIAL ULTRASOUND WITH DOPPLER OF LEFT LOWER EXTREMITY: ? GREAT SAPHENOUS VEIN: ?? Saphenofemoral Junction: 0.7 cm; Reflux: 0 ms ?? Proximal Thigh: 0.6 cm; Reflux: 1308 ms ?? Mid Thigh: 0.6 cm; Reflux: 1840 ms ?? Distal Thigh: 0.5 cm; Reflux: 1436 ms ?? At Knee: 0.4 cm; Reflux: 2260 ms ?? Proximal Calf: 0.7 cm; Reflux: 1204 ms ?? Mid Calf: Not seen. ?? Distal Calf: 0.5 cm; Reflux: 1116 ms ? DUPLICATED MEDIAL GREAT SAPHENOUS VEIN: ?? Diameter: None imaged ?? Reflux: NA ? DUPLICATED LATERAL GREAT SAPHENOUS VEIN: ?? Diameter: None imaged. ?? Reflux: NA ? SMALL SAPHENOUS VEIN: ?? Saphenopopliteal Junction: 0.4 cm; Reflux: 1404 ms ?? Proximal: 0.3 cm; Reflux: 1192 ms ?? Distal: 0.4 cm; Reflux: 1380 ms ? VEIN OF GIACOMINI: ?? Size: NA ?? Reflux: NA ? PERFORATORS: ?? Location: None imaged ?? Size: NA ?? Reflux: NA ? VARICOSITIES: ?? Location: Throughout the thigh and calf. ?? Size: 0.3-0.6 cm. ?? Reflux: 576-1348 ms. ? / venous insuf bilat ?? IMPRESSION: ?? Right: Venous insufficiency throughout the great and small saphenous ?? vein and the deep venous system. Varices and perforators with reflux. ? Left: Venous insufficiency throughout the great and small saphenous ?? veins and deep venous system. ?? Varices with reflux.. ? Electronically signed by: ??Sonny Mathews MD ??11/30/2024 03:57 PM ?? EDT RP ? Dictated By: ?Sonny Jeffries MD ? Signed By: ?<Electronically signed by Sonny Mathews Jam, MD in OV> ? 11/30/24 1557 ? DD/ 1319 ? TD/TT: 11/30/24 1410 ? [employer] Machine Tender: ? Procedure Note Vilma Murillo - 11/30/[address] [address] Ultrasound Report Signed Patient: Tesfaye MerlosMR#: [id number] : 1985Acct:[id number] Age/Sex: 39 / MADM Date: 11/30/24 Loc: HO.US Attending Dr: Elen Horan PA-C Ordering Physician: Elen Horan PA-C Date of Service: 11/30/24 Procedure(s): US venous insuf bilat Accession Number(s): [id number] cc: Elen Horan PA-C; Vilma Rosario EXAMINATION: US LOWER EXTREMITY VENOUS (REFLUX EXAM), BILATERAL CLINICAL INFORMATION: Lymphedema. COMPARISON: October 22, 2024. TECHNIQUE: Color flow triplex imaging and compression Doppler was performed to evaluate both the deep and the superficial systems bilaterally. To evaluate the superficial system, the examination was performed in the upright position. Color-flow Doppler ultrasound and compression ultrasound were utilized. In addition, maneuvers were utilized to demonstrate reflux. FINDINGS: 1. DEEP VENOUS ULTRASOUND OF THE RIGHT LOWER EXTREMITY: Common Femoral Vein: Compressible, normal respiratory variation and augmented flow. Femoral Vein: Compressible, normal color flow and augmentation. Popliteal Vein: Compressible, normal augmentation. Deep Reflux: There is reflux (952-1656 ms) in the deep venous system. There is no evidence of a Johnston's cyst. 2. SUPERFICIAL ULTRASOUND WITH DOPPLER OF RIGHT LOWER EXTREMITY: GREAT SAPHENOUS VEIN: Saphenofemoral Junction: 1.0 cm; Reflux: 796 ms Proximal Thigh: 0.8 cm; Reflux: 1324 ms Mid Thigh: 0.4 cm; Reflux: 1028 ms Distal Thigh: 0.3 cm; Reflux: 928 ms At Knee: 0.4 cm; Reflux: 1028 ms Proximal Calf: 0.6 cm; Reflux: 1544 ms Mid Calf: 0.3 cm; Reflux: 1140 ms Distal Calf: 0.3 cm; Reflux: 1240 ms DUPLICATED MEDIAL GREAT SAPHENOUS VEIN: Diameter: None imaged Reflux: NA DUPLICATED LATERAL GREAT SAPHENOUS VEIN: Diameter: None imaged Reflux: NA SMALL SAPHENOUS VEIN: Saphenopopliteal Junction: 0.4 cm; Reflux: 700 ms Proximal: 0.3 cm; Reflux: 956 ms Distal: 0.4 cm; Reflux: 1324 ms VEIN OF GIACOMINI: Size: NA Reflux: NA PERFORATORS: Location: Mid thigh proximal calf. Size: 0.2-0.3 cm. Reflux: 1536 ms in the proximal calf. VARICOSITIES: Location: Proximal thigh and calf. Size: 0.3-0.7 cm. Reflux: 4078-5799 ms. 3. DEEP VENOUS ULTRASOUND OF THE LEFT LOWER EXTREMITY: Common Femoral Vein: Compressible, normal respiratory variation and augmented flow. Femoral Vein: Compressible, normal color flow and augmentation. Popliteal Vein: Compressible, normal augmentation. Deep Reflux: Venous reflux throughout the deep venous system (8571-8550 ms).. There is no evidence of a Johnston's cyst. 4. SUPERFICIAL ULTRASOUND WITH DOPPLER OF LEFT LOWER EXTREMITY: GREAT SAPHENOUS VEIN: Saphenofemoral Junction: 0.7 cm; Reflux: 0 ms Proximal Thigh: 0.6 cm; Reflux: 1308 ms Mid Thigh: 0.6 cm; Reflux: 1840 ms Distal Thigh: 0.5 cm; Reflux: 1436 ms At Knee: 0.4 cm; Reflux: 2260 ms Proximal Calf: 0.7 cm; Reflux: 1204 ms Mid Calf: Not seen. Distal Calf: 0.5 cm; Reflux: 1116 ms DUPLICATED MEDIAL GREAT SAPHENOUS VEIN: Diameter: None imaged Reflux: NA DUPLICATED LATERAL GREAT SAPHENOUS VEIN: Diameter: None imaged. Reflux: NA SMALL SAPHENOUS VEIN: Saphenopopliteal Junction: 0.4 cm; Reflux: 1404 ms Proximal: 0.3 cm; Reflux: 1192 ms Distal: 0.4 cm; Reflux: 1380 ms VEIN OF GIACOMINI: Size: NA Reflux: NA PERFORATORS: Location: None imaged Size: NA Reflux: NA VARICOSITIES: Location: Throughout the thigh and calf. Size: 0.3-0.6 cm. Reflux: 576-1348 ms. US/US venous insuf bilat IMPRESSION: Right: Venous insufficiency throughout the great and small saphenous vein and the deep venous system. Varices and perforators with reflux. Left: Venous insufficiency throughout the great and small saphenous veins and deep venous system. Varices with reflux.. Electronically signed by: Sonny Mathews MD 11/30/2024 03:57 PM EDT Dictated By: Sonny Jeffries MD Signed By: <Electronically signed by Sonny Polk MDin OV> 11/30/24 1557 DD/ 1319 TD/TT: 11/30/24 1410 [employer] Machine Tender: us [facility] External Provider CV VASC ULAR PROCEDURES Final Result [facility] [address] [place] [phone] * [facility] Lower Extremity Venous Duplex Bilateral (10/22/2024 4:21 PM EST) 10/22/2024 4:21 PM EST Narrative [facility] - 10/25/2024 5:47 AM EST ? [facility] ?[address] ?[place] [address] ? Ultrasound Report ? Signed ? Patient: Merlos,Tesfaye ?MR#: [id number] ? : 1985 ?Acct:[id number] ? Age/Sex: 39 / M ?ADM Date: 10/22/24 ? Loc: HO.US ? Attending Dr: Elen Horan PA-C ? Ordering Physician: Elen Horan PA-C ?? Date of Service: 10/22/24 ?? Procedure(s): US venous duplex LE BI ?? Accession Number(s): [id number] ? cc: Elen Horan PA-C; Vilma Rosario ? EXAMINATION: ?? US TRIPLEX LOWER EXTREMITY, BILATERAL ? CLINICAL INFORMATION: ?? Lymphedema bilateral lower extremities. ? COMPARISON: ?? None available. ? TECHNIQUE: ?? Color-flow triplex imaging with spectral analysis and compression ?? Doppler were performed on the bilateral lower extremities. ? FINDINGS: ?? Respiratory variation, normal compression and augmented flow are noted ?? throughout the bilateral lower extremities. The visualized common ?? femoral vein, superficial femoral vein, profunda femoral vein, and ?? popliteal veins show no evidence of deep venous thrombosis bilaterally. ?? Bilateral calf veins were not visualized due to body habitus and ?? bilateral calf swelling. ? There is no Johnston's cyst. ? US/US venous duplex LE BI ?? IMPRESSION: ?? No evidence of deep venous thrombosis involving the bilateral lower ?? extremities to the level of the popliteal veins. Bilateral calf veins ?? were not visualized due to body habitus and bilateral calf swelling. ? Electronically signed by: ??Antionette Millard MD ??10/25/2024 05:44 AM EST ?? RP ? Dictated By: ?Antionette Millard MD ? Signed By: ?<Electronically signed by Antionette Millard MD in OV> ? 10/25/24 0544 ? DD/ 1621 ? TD/TT: 10/22/24 1630 ? [employer] Machine Tender: ? Procedure Note Donotuseinterpreter, Image - 10/25/[address] [address] Ultrasound Report Signed Patient: Tesfaye MerlosMR#: [id number] : 1985Acct:[id number] Age/Sex: 39 / MADM Date: 10/22/24 Loc: HO.US Attending Dr: Elen Horan PA-C Ordering Physician: Elen Horan PA-C Date of Service: 10/22/24 Procedure(s): US venous duplex LE BI Accession Number(s): [id number] cc: Elen Horan PA-C; Vilma Rosario CLIENT SERVICE ASSOCIATE EXAMINATION: US TRIPLEX LOWER EXTREMITY, BILATERAL CLINICAL INFORMATION: Lymphedema bilateral lower extremities. COMPARISON: None available. TECHNIQUE: Color-flow triplex imaging with spectral analysis and compression Doppler were performed on the bilateral lower extremities. FINDINGS: Respiratory variation, normal compression and augmented flow are noted throughout the bilateral lower extremities. The visualized common femoral vein, superficial femoral vein, profunda femoral vein, and popliteal veins show no evidence of deep venous thrombosis bilaterally. Bilateral calf veins were not visualized due to body habitus and bilateral calf swelling. There is no Johnston's cyst. US/US venous duplex LE BI IMPRESSION: No evidence of deep venous thrombosis involving the bilateral lower extremities to the level of the popliteal veins. Bilateral calf veins were not visualized due to body habitus and bilateral calf swelling. Electronically signed by: Antionette Millard MD 10/25/2024 05:44 AM EST Dictated By: Antionette Millard MD Signed By: <Electronically signed by Antionette Millard MD in OV> 10/25/24 0544 DD/ 1621 TD/TT: 10/22/24 1630 [employer] Machine Tender: [facility] External Provider CV VASC ULAR PROCEDURES Edited Result - Final [facility] [address] [place] [address] * Hepatitis C Antibody with Reflex to HCV, RNA, Quantitative, Real-Time PCR (08/04/2024 12:23 PM EST) Hepatitis C Antibody Nonreactive Nonreactive [facility] Comment:Antibodies to HCV no t detected; does not exclude early acuteHCV infection. Blood Venous blood specimen / Unknown 08/04/2024 12:23 PM EST 08/04/2024 1:16 PM EST us Vilma [facility] BLOOD ORDERABLES Final Res ult Performing Organization Address [facility] Number [facility] [address] [place] [address] [phone] * HIV-1/2 Antigen and Antibodies, Fourth Generation, with Reflexes (08/04/2024 12:23 PM EST) HIV AB/AG Nonreactive Nonreactive [facility] Comment:HIV-1 p24 Ag and/or HIV-1/HIV-2 Ab not detected.A test result that is nonreactive does not exclude thepossibility of exposure to or infection with HIV-1 and/orHIV-2. Nonreactive results in this assay for individualswith prior exposure to HIV-1 and/or HIV-2 may be due toantigen and antibody levels that are below the limit ofdetection of this assay.The [employer] HIV Ag/Ab Combo assay result andsupplemental assay results should be interpreted inconjunction with the patient's clinical presentation,history and other laboratory results. If the results areinconsistent with clinical evidence, additional testing issuggested to confirm the result. Blood Venous blood specimen / Unknown 08/04/2024 12:23 PM EST 08/04/2024 1:16 PM EST us Vilma [facility] BLOOD ORDERABLES Final Res ult Performing Organization Address [facility]/State/ZIP Co de Phone Number [facility] [address] [place] [address] [phone] * (ABNORMAL) LIPID PANEL, STANDARD (02/06/2022 9:13 AM EDT) Chol/HDLC Ratio 3.5 <5.0 (calc) [facility] Cholesterol, Total 111 <200 mg/dL [facility] HDL Cholesterol 32(L) > OR = 40 mg/dL [facility] LDL Cholesterol 64 mg/dL (calc) [facility] Comment: Reference range: <100 ?? Desirable range <100 mg/dL for primary prevention; ?? <70 mg/dL for patients with CHD or diabetic patients ?? with > or = 2 CHD risk factors. ?? LDL-C is now calculated using the Rnoald ?? calculation, which is a validated novel method providing ?? better accuracy than the Friedewald equation in the ?? estimation of LDL-C. ?? Kris MAGANA et al. GIOVANNY. 2013;310(19): 8855-8756 ?? (http://education.CellEra/faq/LPJ393) Non-HDL Cholesterol 79 <130 mg/dL (calc) [facility] Comment: For patients with diabetes plus 1 major ASCVD risk ?? factor, treating to a non-HDL-C goal of <100 mg/dL ?? (LDL-C of <70 mg/dL) is considered a therapeutic ?? option. Triglycerides 73 <150 mg/dL [facility] BEDS AT [facility] 02/06/2022 9:13 AM EDT us Richie Name LAB BLOOD ORDERABLES Final Resul t [facility] [address] from Last 3 Months or Most Recently Relevant to Health Maintenance Insurance [facility] , [address] [place] [address] Care Teams Structural Engineering Drafting Officer Relationship Specialty Start Date End Date iVlma Rosario FNP [address] [place] [id number] PCP - General Family Medicine 07/13/24
== END 2025-01-07 09:46 | disposition home or self-care (01) ==
LOC: HO.HVS 08:31
PROVIDERS: PCP Nurse Practitioner Family; Visit Provider Surgery Vascular Surgery
DX: I83.12 Varicose veins of left lower extremity with inflammation (principal)
CPT/HCPCS: 36475

== ENCOUNTER → 2025-01-07 08:31 | Outpatient (BNVA) | payer OTHER, SELFPAY | PROVIDERS: PCP Nurse Practitioner Family; Visit Provider Surgery Vascular Surgery | DX: I83.12 Varicose veins of left lower extremity with inflammation (principal) | CPT/HCPCS: 36475; J2003; J2004 ==

== ENCOUNTER 2025-01-20 15:47 | Outpatient (AMB) | payer OTHER, SELFPAY ==
--- NOTE | 2025-01-20 15:50 | A.OFFVIS_ITS ---
Intake Visit Reasons: 2 wk follow up Left GSV RFA 01/07/2025 Intake Note: Patient presents for a 2 week follow up s/p left GSV RFA. Patient states he has some pain at the incision site. Accompanied by: Self / Same As Patient Allergies vancomycin Allergy (Unknown, Verified 01/20/25 15:51) Hives [facility] HPI 2 wk follow up Left GSV RFA 01/07/2025: Details: Very pleasant 39-year-old gentleman with significantly swollen lower extremities presents for follow-up status post left great saphenous vein ablation. Reports he is doing fairly well after the procedure. He does report some improvement in lower extremity swelling. He now presents for follow-up and is now concerned of his right lower extremity. Now presents for vascular follow-up. [facility] Medical History Lymphedema Social History Household Members: Family Do you presently have visiting nurse or other home services: No Alcohol intake: current Alcohol intake frequency: holidays/special occasions only Substance Use Type: Marijuana service: No Current occupational status: unemployed Review of Systems Const Reports as per HPI ENT Reports no additional complaints Card Denies chest pain, Denies chest pain at rest and Denies chest pain with activity Resp Denies chest congestion and Denies cough GI Reports no additional complaints Musc Details: pain over varicosities, aching of lower extremities, swelling, cramping, heaviness and tiredness, itching Denies abnormal gait Skin/Breast Reports pruritus and Denies wounds Neuro Reports no additional complaints and Denies abnormal gait Psych Denies no additional complaints Physical Exam Const General: cooperative, healthy appearing and comfortable Orientation/consciousness: oriented to person, oriented to place and oriented to time Neck Carotids: no bruits Chest Chest palpation & inspection: normal inspection of the chest and normal palpation of entire chest wall Resp Effort & Inspection: normal respiratory effort and able to speak in complete sentences Cardio Rate: regular rate Heart sounds: S1 normal heart sound present and S2 normal heart sound present Peripheral pulses: Peripheral pulses 2+ throughout GI Inspection: Yes normal to inspection Skin Other: +2 edema, large rope-like varicosities greater than 4 mm CEAP Classification C4 - skin color changes Ep - Etiology Primary As - superficial veins P - reflux General skin exam: dry skin Neuro General: oriented to person, oriented to place and oriented to time Extrem Right lower extremity: full ROM, normal capillary refill and edema Left lower extremity: full ROM, normal capillary refill and edema Psych Mental Status: mental status grossly normal Results Reviewed Results Reviewed: Brief summary of venous insufficiency testing is as follows: right great saphenous vein: Positive right small saphenous vein: Positive right accessory vein: none present left great saphenous vein: Ablated left small saphenous vein: Positive left accessory vein: none present Please note there is no evidence of any venous aneurysms or significant tortuosity Assessment & Plan Assessment & Plan (1) Varicose veins of left lower extremity with inflammation: Comment: 01/07/2025 - left great saphenous vein radiofrequency ablation Code(s): I83.12 - Varicose veins of left lower extremity with inflammation Category: Medical Plan: Doing well will treat right great saphenous vein (2) Varicose veins of right lower extremity with inflammation: Code(s): I83.11 - Varicose veins of right lower extremity with inflammation Category: Medical Plan: This patient has varicose veins with inflammation. They continue to be a source of discomfort for the patient. The patient has tried conservative treatment with compression, leg elevation and exercise program for over 3 months time. They have been compliant with all treatment. This has provided minimal relief for the patient. I do not anticipate this course of treatment will alter the underlying etiology. The patient has been scheduled for lower extremity venous treatment inclusive of --- right great saphenous vein radiofrequency a blation. Risks, benefits, and complications of this procedure has been discussed in detail with the patient including but not limited to bleeding, infection, and the development of a DVT. The patient has demonstrated a clear understanding and has consented. We will schedule the patient as soon as possible. Thank you for allowing us to participate in this patient's care. If there are any questions or concerns please do not hesitate to contact us. (3) Lymphedema of both lower extremities: Code(s): I89.0 - Lymphedema, not elsewhere classified Category: Medical Plan: Encouraged to continue using lymphedema pumps. Coding Level of Care Code Est Pt Level 4 (78770) Diagnoses Varicose veins of left lower extremity with inflammation I83.12 Varicose veins of right lower extremity with inflammation I83.11 Lymphedema of both lower extremities I89.0
--- OUTSIDE RECORDS SUMMARY | 2025-01-20 16:11 | XMS_ITS | Clinical Summary ---
Author Organization [employer] Address [address] [facility] 7[address] [place] [address] Care Team Providers Care Professional Housing Consultant Name Role Phone Vilma Rosario IMAGING CLERK Primary Care Provider [phone] Allergies Active Allergy Reactions Criticality Noted Date [...] in his life. Tesfaye was referred to [facility] in [place]. Pt reports showing up on day of the appointment, but agency was closed due to bad weather. He did not receive any call for cancellation or r/s even thought pt left several messages. - Pt completed intake with [facility] and he will be starting services [...] Complains hit rubs against clothing. 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 Tesfaye will utilize [facility] services for OP therapy. Declined medication [...] Description 12/02/2024 1:45 PM EDT Office Visit [facility] OPT[facility] [address] [place] [phone] Germaine Manning OD Presbyopia (Primary Dx) 12/02/2024 Travel 11/05/2024 9:00 AM EST Office Visit [facility] [address] [place] [address] Brody Rosarioupe, IMAGING CLERK Lymphedema of both lower extremities (Primary Dx); Severe anxiety with panic 10/28/2024 Telephone [facility] [address] [facility] [place] [address] Patricia Arellano MA Chart Prep from Last 3 Months Family History Medical [...] Description 01/28/2025 1:45 PM EDT Office Visit [facility] [address] [place], [place] [phone] Sissy Toledo MD [address] [place] [address] Health Maintenance Due Date Last Done Comments Family Planning (PISQ) 1998 Hepatitis B Vaccines (1 of 3 - 19+ 3-dose series) 2002 COVID-19 Vaccine ( - 2023- season) 2024 02/14/2021, 01/17/2021 Influenza Vaccine (#1) [...] Procedure Name Priority Date/Time Associated Diagnosis Comments [facility] LOWER EXTREMITY VENOUS INSUFFICIENCY BILATERAL Routine 11/30/2024 1:19 PM EDT HEPATITIS C AB W/REFL TO HCV RNA, QN, PCR Routine 08/04/2024 12:23 PM EST Encounter for adult wellness visit HIV 1/2 ANTIGEN/ANTIBODY, FOURTH GENERATION W/RFL Routine 08/04/2024 12:23 PM EST Encounter for adult wellness visit LIPID PANEL, STANDARD Routine 02/06/2022 9:13 AM EDT from Last 3 Months or Most Recently Relevant to Health Maintenance Results * [facility] US Lower Extremity Venous Insufficiency Bilateral (11/30/2024 1:19 PM EDT) 11/30/2024 1:19 PM EDT Narrative [facility] - 11/30/2024 4:00 PM EDT ? [facility] ?[address] ?[place] [address] ? Ultrasound Report ? Signed ? Patient: Merlos,Tesfaye ?MR#: [id number] ? : 1985 ?Acct:[id number] ? Age/Sex: 39 / M ?ADM Date: 11/30/24 ? Loc: HO.US ? Attending Dr: Elen Horan PA-C ? Ordering Physician: Elen Horan PA-C ?? Date of Service: 11/30/24 ?? Procedure(s): US venous insuf bilat ?? Accession Number(s): [id number] ? cc: Elen Horan PA-C; Vilma Rosario [...] calf. ?? Size: 0.3-0.7 cm. ?? Reflux: 8492-4389 ms. ? 3. DEEP VENOUS ULTRASOUND OF THE LEFT LOWER EXTREMITY: ?? Common Femoral Vein: Compressible, normal respiratory variation and ?? augmented flow. ? Femoral Vein: Compressible, normal color flow and augmentation. ?? Popliteal Vein: Compressible, normal augmentation. ? Deep Reflux: Venous reflux throughout the deep venous system (5582-7140 ?? ms).. ? There is no evidence [...] Mathews MD ??11/30/2024 03:57 PM ?? EDT ? Dictated By: ?Sonny Jeffries MD ? Signed By: ?<Electronically signed by Sonny Polk MD in OV> ? 11/30/24 1557 ? DD/ 1319 ? TD/TT: 11/30/24 1410 ? Bottle Washer Machine: ? Procedure Note Vilma Murillo - 11/30/2024 [place] [id number] Ultrasound Report Signed Patient: Toni Merlos#: [id number] : 1985Acct:[id number] Age/Sex: 39 / MADM Date: 11/30/24 Loc: HO.US Attending Dr: Elen Horan PA-C Ordering Physician: Elen Horan PA-C Date of Service: 11/30/24 Procedure(s): US venous insuf bilat Accession Number(s): [id number] cc: Elen Horan PA-C; Vilma Rosario IMAGING CLERK EXAMINATION: US LOWER EXTREMITY VENOUS (REFLUX EXAM), [...] thigh and calf. Size: 0.3-0.7 cm. Reflux: 3226-1212 ms. 3. DEEP VENOUS ULTRASOUND OF THE LEFT LOWER EXTREMITY: Common Femoral Vein: Compressible, normal respiratory variation and augmented flow. Femoral Vein: Compressible, normal color flow and augmentation. Popliteal Vein: Compressible, normal augmentation. Deep Reflux: Venous reflux throughout the deep venous system (1043-0287 ms).. There is no evidence of a [...] 11/30/24 1557 DD/ 1319 TD/TT: 11/30/24 1410 Bottle Washer Machine: us [facility] External Provider CV VASC ULAR PROCEDURES Final Result [facility] [address] [place] [address] [phone] * Hepatitis C Antibody with Reflex to HCV, RNA, Quantitative, Real-Time PCR (08/04/2024 12:23 PM EST) Hepatitis C Antibody Nonreactive Nonreactive [facility] Comment:Antibodies to HCV no t detected; does not exclude early acuteHCV infection. Blood Venous blood specimen / Unknown 08/04/2024 12:23 PM EST 08/04/2024 1:16 PM EST [facility] LAB BLOOD ORDERABLES Final Res ult Performing Organization Address City/[facility]/ZIP Co de Phone Number [facility] [address] [place] [address] [phone] * HIV-1/2 Antigen and Antibodies, Fourth Generation, with Reflexes (08/04/2024 12:23 PM EST) [facility] HIV AB/AG Nonreactive Nonreactive [facility] Comment:HIV-1 p24 Ag and/or HIV-1/HIV-2 Ab not detected.A test result that is nonreactive does not exclude thepossibility of exposure to or infection with HIV-1 and/orHIV-2. Nonreactive results in this assay for individualswith prior exposure to HIV-1 and/or HIV-2 may be due toantigen and antibody levels that are below the limit ofdetection of this assay.The [employer] HIV Ag/Ab Combo assay result andsupplemental assay results should be interpreted inconjunction with the patient's clinical presentation,history and other laboratory results. If the results areinconsistent with clinical evidence, additional testing issuggested to confirm the result. Blood Venous blood specimen / Unknown 08/04/2024 12:23 PM EST 08/04/2024 1:16 PM EST [facility] LAB BLOOD ORDERABLES Final Res ult Performing Organization Address [facility]/ZIP Co de Phone Number [facility] [address] [place] [address] [phone] * (ABNORMAL) LIPID PANEL, STANDARD (02/06/2022 9:13 AM EDT) [facility] Chol/HDLC Ratio 3.5 <5.0 (calc) [facility] [...] ?? Kris MAGANA et al. GIOVANNY. 2013;310(19): 4454-7976 ?? (http://[employer]/faq/GLU816) Non-HDL Cholesterol 79 <130 mg/dL (calc) [facility] Comment: For patients with diabetes plus 1 major ASCVD risk ?? factor, treating to a non-HDL-C goal of <100 mg/dL ?? (LDL-C of <70 mg/dL) is considered a therapeutic ?? option. Triglycerides 73 <150 mg/dL [facility] 02/06/2022 9:13 AM EDT us Richie Calixto MD LAB BLOOD ORDERABLES Final Resul t [facility] [address] from Last 3 Months or Most Recently Relevant to Health Maintenance Insurance [facility] , [address] [place] [address] Care Teams Professional Housing Consultant Relationship Specialty Start Date End Date Vilma Rosario FNP [address] [place] [phone] PCP - General Family Medicine 07/13/24
== END 2025-01-21 07:35 | disposition home or self-care (01) ==
LOC: HO.HVS 15:47
PROVIDERS: PCP Nurse Practitioner Family; Visit Provider Surgery Vascular Surgery
DX: I83.12 Varicose veins of left lower extremity with inflammation (principal); I83.11 Varicose veins of right lower extremity with inflammation; I89.0 Lymphedema, not elsewhere classified
CPT/HCPCS: 99214

== ENCOUNTER 2025-03-04 09:39 | Outpatient (AMB) | payer OTHER, SELFPAY ==
--- OUTSIDE RECORDS SUMMARY | 2025-03-04 09:51 | XMS_ITS | Clinical Summary ---
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 ketoconazole (NIZOral) 2 % shampooIndicati ons:Seborrheic dermatitis Apply 3 times weekly Do not start before January 31, 2025. 120 mL 1 5 Active Fluocinolone Acetonide Scalp ([place]-Smoothe/ FS Scalp) 0.01 % oilIndications: Seborrheic dermatitis Apply 3 times weekly 118.28 mL 1 5 Active hydrocortisone 2.5 % creamIndication s:Seborrheic dermatitis Apply topically 2 times daily. 20 g 5 Active Active Problems Problem Noted Date Diagnosed Date KAYY (generalized anxiety disorder) 11/05/2024 Class 1 obesity 10/28/2024 Pain of lower [...] Complains hit rubs against clothing. Plan Referral laundry room attendant Severe anxiety with panic 08/04/2024 Assessment & [...] seek out for services. Tesfaye will utilize [facility] services for OP therapy. Declined medication [...] EST): Recently treated at [facility] for left leg infection 07/20/2024, prescribed clortrimazole 1% cream. At this visit cellulitis of left lower leg resolved. Plan Patient education Keep skin clean and moisturized Inspect skin for cuts and wounds daily.Treat cuts and wound immediately Keep nails short to avoid opening skin accidentally through scrathes Assessment & Plan (07/20/2024 9:19 AM EST): Take Shalini x 7-10d. Elevate leg and start wearing [...] ear infections as child Depression 12/08/2008 Encounters Date Type Department Care Team Description 01/28/2025 1:45 PM EDT Office Visit [facility] [address] [place] [address] Sissy Toledo MD Inflamed skin tag (Primary Dx); Seborrheic dermatitis 01/28/2025 Travel 01/27/2025 Telephone [facility] [address] [place] [address] Vilma Rosario FNP February recall 12/02/2024 1:45 PM EDT Office Visit [facility] OPTOM[facility] [address] [place], [place] [phone] Germaine Manning, OD Presbyopia (Primary Dx) 12/02/2024 Travel from Last 3 Months Family History Medical [...] Sign Reading Time Taken Comments Blood Pressure 128/70 01/28/2025 2:07 PM EDT Pulse 80 01/28/2025 2:07 PM EDT Temperature 37.1 C (98.7 F) 01/28/2025 2:07 PM EDT Respiratory Rate 18 01/28/2025 2:07 PM EDT Oxygen Saturation 98% 11/05/2024 9:25 AM EST Inhaled Oxygen Concentration - - Weight 104 kg (229 lb 14.4 oz) 01/28/2025 2:07 P M EDT Height 172.7 cm (5' 8 ) 01/28/2025 2:07 PM EDT Body Mass Index 34.96 01/28/2025 2:07 PM EDT Plan of Treatment Upcoming Encounters Date Type Department Care Team (Late st Contact Info) Description 03/11/2025 3:30 PM EDT Office Visit [facility] [address] [place] [address] Vilma Rosario, VEHICLE SALES PROFESSIONAL [address] [place] [address] Health Maintenance Due Date Last Done Comments Disability Screening 1985 Family Planning (PISQ) 1998 Hepatitis B Vaccines (1 of 3 - 19+ 3-dose series) 2002 COVID-19 Vaccine (3 - 2023- season) 2024 02/14/2021, 01/17/2021 Influenza Vaccine (Season Ended) 2025 06/05/2017, 06/02/2017, 05/31/2016, Additional history exists SDOH Screening [...] patient's age to complete this topic Meningococcal B Vaccine Aged Out No l onger eligible based on patient's age to complete this topic Meningococcal Vaccine Aged Out No josh lore eligible based on patient's age to complete this topic Pneumococcal Vaccine: Pediatrics (0 to 5 Years) and At-Risk Patients (6 to 49) Years Aged Out No longer eligible based on patient's age to complete this topic RSV under 20 months Aged Out No longe r eligible based on patient's age to complete this topic Rotavirus Vaccines Aged Out No longer eligible based on patient's age to complete this topic Procedures Procedure Name Priority Date/Time Associated Diagnosis Comments HEPATITIS C AB W/REFL TO HCV RNA, QN, PCR Routine 08/04/2024 12:23 PM EST Encounter for adult wellness visit HIV 1/2 ANTIGEN/ANTIBODY, FOURTH GENERATION W/RFL Routine 08/04/2024 12:23 PM EST Encounter for adult wellness visit LIPID PANEL, STANDARD Routine 02/06/2022 9:13 AM EDT from Last 3 Months or Most Recently Relevant to Health Maintenance Results * Hepatitis C Antibody with Reflex to HCV, RNA, Quantitative, Real-Time PCR (08/04/2024 12:23 PM EST) Hepatitis C Antibody Nonreactive Nonreactive [facility] Comment:Antibodies to HCV no t detected; does not exclude early acuteHCV infection. Blood Venous blood specimen / Unknown 08/04/2024 12:23 PM EST 08/04/2024 1:16 PM EST Vilma Rosario [facility] LAB BLOOD ORDERABLES Final Res ult [facility] [address] [place] [phone] * HIV-1/2 Antigen and Antibodies, Fourth Generation, with Reflexes (08/04/2024 12:23 PM EST) HIV AB/AG Nonreactive Nonreactive [facility] Comment:HIV-1 p24 Ag and/or HIV-1/HIV-2 Ab not detected.A test result that is nonreactive does not exclude thepossibility of exposure to or infection with HIV-1 and/orHIV-2. Nonreactive results in this assay for individualswith prior exposure to HIV-1 and/or HIV-2 may be due toantigen and antibody levels that are below the limit ofdetection of this assay.The [employer] HIV Ag/Ab Combo assay result andsupplemental assay results should be interpreted inconjunction with the patient's clinical presentation,history and other laboratory results. If the results areinconsistent with clinical evidence, additional testing issuggested to confirm the result. Blood Venous blood specimen / Unknown 08/04/2024 12:23 PM EST 08/04/2024 1:16 PM EST Vilma Rosario VEHICLE SALES PROFESSIONAL LAB BLOOD ORDERABLES Final Res ult [facility] [address] [place] [phone] * (ABNORMAL) LIPID PANEL, STANDARD (02/06/2022 9:13 AM EDT) Chol/HDLC Ratio 3.5 <5.0 (calc) [facility] Cholesterol, Total 111 <200 mg/dL [facility] HDL Cholesterol 32(L) > OR = 40 mg/dL [facility] LDL Cholesterol 64 mg/dL (calc) [facility] Comment: Reference range: <100 Desirable range <100 mg/dL for primary prevention; <70 mg/dL for patients with CHD or diabetic patients with > or = 2 CHD risk factors. LDL-C is now calculated using the Kris-Alexis calculation, which is a validated novel method providing better accuracy than the Friedewald equation in the estimation of LDL-C. Kris SS et al. GIOVANNY. 2013;310(19): 8484-5839 (http://education.[employer].com/faq/TSI677) Non-HDL Cholesterol 79 <130 mg/dL (calc) [facility] Comment: For patients with diabetes plus 1 major ASCVD risk factor, treating to a non-HDL-C goal of <100 mg/dL (LDL-C of <70 mg/dL) is considered a therapeutic option. Triglycerides 73 <150 mg/dL [facility] 02/06/2022 9:13 AM EDT Richie Calixto MD LAB BLOOD ORDERABLES Final Resul t [facility] [address] from Last 3 Months or Most Recently Relevant to Health Maintenance Insurance [facility] , [address] [place] [address] Care Teams Mains And Service Supervisor Relationship Specialty Start Date End Date Vilma Rosario FNP [address] [place] [phone] PCP - General Family Medicine 07/13/24
--- NOTE | 2025-03-04 09:57 | MHC.OFFVIS ---
Intake Visit Reasons: Right GSV RFA Accompanied by: Self / Same As Patient Allergies vancomycin Allergy (Unknown, Verified 03/04/25 09:57) [facility]ives [facility] Medical History Lymphedema Social History Household Members: Family Do you presently have visiting nurse or other home services: No Alcohol intake: current Alcohol intake frequency: holidays/special occasions only Substance Use Type: Marijuana service: No Current occupational status: unemployed Office Procedures Vascular Office Procedure Details Details: Diagnosis: Varicose veins with inflammation of right leg Procedure: Endovenous radiofrequency ablation of the right great saphenous vein(s) of the lower extremity. Anesthesia: Local infiltration 5 cc, Tumescent 400 cc. Estimated Blood Loss: minimal Specimen: Varicose veins The patient was transferred to the procedure suite and the insufficient saphenous vein was mapped by ultrasound and diagrammed on the overlying skin. The depth and diameter of the vein(s) to be treated was documented. The varicose tributary veins and suitable access sites were identified and mapped as well. The patient was then positioned supine on the procedure table. The affected limb was prepped and draped in the usual sterile fashion. The RF catheter was placed on the sterile field, flushed and wiped down, prepared, and connected by a sterile cable. The patient was placed in supine position and local anesthesia was instilled in the skin overlying the access site. A skin incision was made overlying the identified and mapped great saphenous vein entry site. The vein was accessed using ultrasound guidance and the Seldinger technique, a guide wire was introduced through the needle, which was then exchanged over the guide wire for a 6F sheath, which was secured in place. The guide wire was removed and the sheath was flushed. The RF catheter was placed into the vein through the sheath and preferentially, imaging was used to place the catheter tip just inferior to the superficial epigastric vein to preserve normal physiological flow in that vein. Additionally, it was confirmed by ultrasound guidance that the catheter tip was also placed a minimum of 1.5cm distal to the saphenofemoral junction. After the RF catheter position was verified by ultrasound, tumescent anesthesia was infiltrated, under ultrasound guidance, precisely into the perivenous compartment along the entire length of vein from the entry site to the saphenofemoral junction until a halo of fluid was noted around the vein. The patient was then placed in supine position to further exsanguinate the superficial venous system. After RF catheter position was again confirmed with ultrasound imaging, and under direct external compression along the length of the heating element, RF energy was applied. The vein was segmentally ablated by heating a 8 cm segment and then indexing the catheter forward by 7.5 cm until the treatment length is completed. Device temperature was maintained at 120 plus or minus 5 degrees C with an initial power level of 40W dropping to below 20W for each treatment. Total vein length treated 32 cm Total cycles of RF 5. Repeat ultrasound of the saphenous vein was performed, confirming successful treatment. The catheter and sheath were withdrawn and hemostasis established with direct pressure. After assuring hemostasis, the skin incision over the saphenous vein was closed with a bandage and a compression wrap, and/ or graduated compression stocking was applied from the level of the foot to the most proximal level of the thigh. 05184 - Endovenous RF, 1st Vein All charges added?: Procedure code (CPT) selection complete Assessment & Plan Assessment & Plan (1) Varicose veins of right lower extremity with inflammation: Comment: 03/04/2025 - right great saphenous vein ablation Code(s): I83.11 - Varicose veins of right lower extremity with inflammation Category: Medical Plan: See op note Coding Level of Care Code Procedure Only Diagnoses Varicose veins of right lower extremity with inflammation I83.11 CPT Codes Details - Vascular 1: 01811 - Endovenous RF, 1st Vein ([id number])
== END 2025-03-04 10:37 | disposition home or self-care (01) ==
LOC: HO.HVS 09:39
PROVIDERS: PCP Nurse Practitioner Family; Visit Provider Surgery Vascular Surgery
DX: I83.11 Varicose veins of right lower extremity with inflammation (principal)
CPT/HCPCS: 36475

== ENCOUNTER → 2025-03-04 09:39 | Outpatient (BNVA) | payer OTHER, SELFPAY | PROVIDERS: PCP Nurse Practitioner Family; Visit Provider Surgery Vascular Surgery | DX: I83.11 Varicose veins of right lower extremity with inflammation (principal); I89.0 Lymphedema, not elsewhere classified; F12.90 Cannabis use, unspecified, uncomplicated | CPT/HCPCS: 36475; J2003; J2004 ==

== ENCOUNTER 2025-03-22 15:47 | Outpatient (AMB) | payer OTHER, SELFPAY ==
--- NOTE | 2025-03-22 15:50 | MHC.OFFVIS ---
Vital Signs 03/22/25 15:50 Height 5 ft 8 in Intake Visit Reasons: 2 wk follow up R GSV RFA 03/04/25 Intake Note: 2 wk follow up Right GSV RFA 03/04/25 and hx of Left GSV RFA 01/07/25. Pt states bilateral LE feel good. States his lymphedema decreases with elevation much faster than before. Does wear compression daily. STates his LE cramping has decreased. Also stated that he did have some bruising s/p Right LE GSV RFA Accompanied by: Self / Same As Patient Allergies vancomycin Allergy (Unknown, Verified 03/22/25 15:53) Hives HPI HPI 2 wk follow up R GSV RFA 03/04/25: Details: Doing well status post bilateral great saphenous vein ablation. Reports swelling and discomfort have significantly decreased. Does persistent swelling and may still have an element of underlying lymphedema. He has been using his flexi touch pumps which have been a source of help for him. He now presents for routine postprocedure follow-up. 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 [facility] Medical History Lymphedema Social History Household Members: Family Do you presently have visiting nurse or other home services: No Alcohol intake: current Alcohol intake frequency: holidays/special occasions only Substance Use Type: Marijuana service: No Current occupational status: unemployed Review of Systems Const Reports as per HPI ENT Reports no additional complaints Card Denies chest pain, Denies chest pain at rest and Denies chest pain with activity Resp Denies chest congestion and Denies cough GI Reports no additional complaints Musc Details: pain over varicosities, aching of lower extremities, swelling, cramping, heaviness and tiredness, itching Denies abnormal gait Skin/Breast Reports pruritus and Denies wounds Neuro Reports no additional complaints and Denies abnormal gait Psych Denies no additional complaints Physical Exam Const General: cooperative, healthy appearing and comfortable Orientation/consciousness: oriented to person, oriented to place and oriented to time Neck Carotids: no bruits Chest Chest palpation & inspection: normal inspection of the chest and normal palpation of entire chest wall Resp Effort & Inspection: normal respiratory effort and able to speak in complete sentences Cardio Rate: regular rate Heart sounds: S1 normal heart sound present and S2 normal heart sound present Peripheral pulses: Peripheral pulses 2+ throughout GI Inspection: Yes normal to inspection Skin Other: +2 edema, large rope-like varicosities greater than 4 mm CEAP Classification C4 - skin color changes Ep - Etiology Primary As - superficial veins P - reflux General skin exam: dry skin Neuro General: oriented to person, oriented to place and oriented to time Extrem Right lower extremity: full ROM, normal capillary refill and edema Left lower extremity: full ROM, normal capillary refill and edema Psych Mental Status: mental status grossly normal Results Reviewed Results Reviewed: Brief summary of venous insufficiency testing is as follows: right great saphenous vein: Ablated right small saphenous vein: Positive right accessory vein: none present left great saphenous vein: Ablated left small saphenous vein: Positive left accessory vein: none present Please note there is no evidence of any venous aneurysms or significant tortuosity Assessment & Plan Assessment & Plan (1) Varicose veins of right lower extremity with inflammation: Comment: 03/04/2025 - right great saphenous vein ablation Code(s): I83.11 - Varicose veins of right lower extremity with inflammation Category: Medical Plan: Doing well will need small saphenous vein ablation in the future (2) Varicose veins of left lower extremity with inflammation: Comment: 01/07/2025 - left great saphenous vein radiofrequency ablation Code(s): I83.12 - Varicose veins of left lower extremity with inflammation Category: Medical Plan: This patient has varicose veins with inflammation. They continue to be a source of discomfort for the patient. The patient has tried conservative treatment with compression, leg elevation and exercise program for over 3 months time. They have been compliant with all treatment. This has provided minimal relief for the patient. I do not anticipate this course of treatment will alter the underlying etiology. The patient has been scheduled for lower extremity venous treatment inclusive of --- left great saphenous vein radiofrequency ablation. Risks, benefits, and complications of this procedure has been discussed in detail with the patient including but not limited to bleeding, infection, and the development of a DVT. The patient has demonstrated a clear understanding and has consented. We will schedule the patient as soon as possible. Thank you for allowing us to participate in this patient's care. If there are any questions or concerns please do not hesitate to contact us. Coding Level of Care Code Est Pt Level 4 (38099) Complex EM visit Add On G2211 Diagnoses Varicose veins of right lower extremity with inflammation I83.11 Varicose veins of left lower extremity with inflammation I83.12
--- OUTSIDE RECORDS SUMMARY | 2025-03-22 16:04 | XMS_ITS | Clinical Summary ---
Author Organization [employer] Address [address] 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 Fluocinolone Acetonide Scalp ([place]-Smoothe /FS Scalp) 0.01 % oilIndications :Seborrheic dermatitis Apply 3 times weekly 118.28 mL 1 01/29/20 25 Active hydrocortisone 2.5 % creamIndicatio ns:Seborrheic dermatitis Apply topically 2 times daily. 20 g 01/29/20 25 Active ketoconazole (NIZOral) 2 % shampooIndicat ions:Seborrhei c dermatitis Apply 3 times weekly 120 mL 1 03/11/20 25 Active ketoconazole (NIZOral) 2 % shampooIndicat ions:Seborrhei c dermatitis Apply 3 times weekly Do not start before January 31, 2025. 120 mL 1 02/01/20 25 025 Discontinued(Re order (will not trigger notification to Pharmacy)) Active Problems Problem Noted Date Diagnosed Date [...] Complains hit rubs against clothing. 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 Tesfaye will utilize [facility] services for OP therapy. Declined medication [...] EST): Recently treated at the [facility] [place] for left leg infection 07/20/2024, prescribed clortrimazole [...] Encounters Date Type Department Care Team Description 03/11/2025 3:30 PM EDT Office Visit [address] [phone] Vilma Rosario FNP Lymphedema of both lower extremities (Primary Dx); Seborrheic dermatitis; Dietary counseling; Exercise counseling; Severe anxiety with panic 03/11/2025 Travel 03/10/[address] [phone] Kody Rodriguez [place] CHART PREP 03/04/2025 Patient Outreach [facility] [address] [place] [address] Vilma Rosario FNP Care Coordination (CHW outreach SDOH employment/jobs search) 03/04/2025 Patient Outreach [facility] [address] [place] [address] Vilma Rosario FNP Pre-visit Planning (SDOH positive. Tobacco screening negative.) 01/28/2025 1:45 PM EDT Office Visit [facility] [address] [place] [address] Sissy Toledo MD Inflamed skin tag (Primary Dx); Seborrheic dermatitis 01/28/2025 Travel 01/27/2025 Telephone [facility] [address] [place] [address] Vilma Rosario FNP February recall from Last 3 Months Family History Medical [...] before you got money to buy more: Never True 03/04/2025 Within the past 12 months,th e food you bought just didn't last and you didn't have enough money to get more: Never True Transportation Answer Date Recorded In the past 12 months, has l ack of transportation kept you from medical appts, meetings, work or from getting things needed for daily living? No 07/27/2024 Utilities Answer Date Recorded In the past 12 months, has t he electric, gas, oil or water [employer] threatened to shut off services in your [...] Sign Reading Time Taken Comments Blood Pressure 120/78 03/11/2025 3:58 PM EDT Pulse 83 03/11/2025 3:58 PM EDT Temperature 36.4 C (97.5 F) 03/11/2025 3:58 PM EDT Respiratory Rate 14 03/11/2025 3:58 PM EDT Oxygen Saturation 98% 03/11/2025 3:58 PM EDT Inhaled Oxygen Concentration - - Weight 105 kg (231 lb) 03/11/2025 3:58 PM EDT Height 172.7 cm (5' 8 ) 03/11/2025 3:58 PM EDT Body Mass Index 35.12 03/11/2025 3:58 PM EDT Plan of Treatment Health Maintenance Due Date Last Done Comments Disability Screening 1983 Family Planning (PISQ) 1998 Hepatitis B Vaccines (1 of 3 - 19+ 3-dose series) 2002 COVID-19 Vaccine (2023- season) 2024 02/14/2021, 01/17/2021 Influenza Vaccine (#1) 2025 7, 06/02/2017, 05/31/2016, Additional history exists Alcohol/Substance Use Screening 11/05/2025 11/05/2024 Depression Screening 11/05/2025 11/05/2024, 11/05/19 SDOH Screening 03/04/2026 03/04/2025 Tobacco Screening 03/11/2026 03/11/2025 Lipid Panel 02/06/2027 02/06/2022 DTaP/Tdap/Td Vaccines (3 [...] PM EST) Hepatitis C Antibody Nonreactive Nonreactive [facility] Comment:Antibodies to HCV no t detected; does not exclude early acuteHCV infection. Blood Venous blood specimen / Unknown 08/04/2024 12:23 PM EST 08/04/2024 1:16 PM EST us Vilma Rosario CEMENT MIXER LAB BLOOD ORDERABLES Final Res ult [facility] [address] [place] [phone] * HIV-1/2 Antigen and Antibodies, Fourth Generation, with Reflexes (08/04/2024 12:23 PM EST) Pathologist [facility] HIV AB/AG Nonreactive Nonreactive [facility] Comment:HIV-1 p24 Ag and/or HIV-1/HIV-2 Ab not detected.A test result that is nonreactive does not exclude thepossibility of exposure to or infection with HIV-1 and/orHIV-2. Nonreactive results in this assay for individualswith prior exposure to HIV-1 and/or HIV-2 may be due toantigen and antibody levels that are below the limit ofdetection of this assay.The [facility] HIV Ag/Ab Combo assay result andsupplemental assay results should be interpreted inconjunction with the patient's clinical presentation,history and other laboratory results. If the results areinconsistent with clinical evidence, additional testing issuggested to confirm the result. Blood Venous blood specimen / Unknown 08/04/2024 12:23 PM EST 08/04/2024 1:16 PM EST us Vilma Rosario [facility] LAB BLOOD ORDERABLES Final Res ult [facility] [address] [place] [phone] * (ABNORMAL) LIPID PANEL, STANDARD (02/06/2022 9:13 AM EDT) [facility] Chol/HDLC Ratio 3.5 <5.0 (calc) [facility] Cholesterol, Total 111 <200 mg/dL [facility] HDL Cholesterol 32(L) > OR = 40 mg/dL [facility] LDL Cholesterol 64 mg/dL (calc) [facility] Comment: Reference range: <100 Desirable range <100 mg/dL for primary prevention; <70 mg/dL for patients with CHD or diabetic patients with > or = 2 CHD risk factors. LDL-C is now calculated using the Kris-Vanesa calculation, which is a validated novel method providing better accuracy than the Friedewald equation in the estimation of LDL-C. Kris MAGANA et al. GIOVANNY. 2013;310(19): 8868-9281 (http://education.Orckit Communications.Alitalia/faq/GYO471) Non-HDL Cholesterol 79 <130 mg/dL (calc) [facility] Comment: For patients with diabetes plus 1 major ASCVD risk factor, treating to a non-HDL-C goal of <100 mg/dL (LDL-C of <70 mg/dL) is considered a therapeutic option. Triglycerides 73 <150 mg/dL [facility] 02/06/2022 9:13 AM EDT us Richie Name LAB BLOOD ORDERABLES Final Resul t [facility] [address] from Last 3 Months or Most Recently Relevant to Health Maintenance Insurance [facility] , [address] [place] [address] Care Teams Lift Truck Operator Relationship Specialty Start Date End Date Vilma Rosario FNP [address] [place] [phone] PCP - General Family Medicine 07/13/24
== END 2025-03-23 09:05 | disposition home or self-care (01) ==
LOC: HO.HVS 15:48
PROVIDERS: PCP Nurse Practitioner Family; Visit Provider Surgery Vascular Surgery
DX: I83.11 Varicose veins of right lower extremity with inflammation (principal); I83.12 Varicose veins of left lower extremity with inflammation
CPT/HCPCS: 99214; G2211

== ENCOUNTER 2025-06-03 11:31 | Outpatient (AMB) | payer OTHER, SELFPAY ==
--- OUTSIDE RECORDS SUMMARY | 2025-06-03 12:08 | XMS_ITS | Clinical Summary ---
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 Fluocinolone Acetonide Scalp ([place]-Smoothe/ FS Scalp) 0.01 % oilIndications: Seborrheic dermatitis Apply 3 times weekly 118.28 mL 1 5 Active hydrocortisone 2.5 % creamIndication s:Seborrheic dermatitis Apply topically 2 times daily. 20 g 5 Active ketoconazole (NIZOral) 2 % shampooIndicati ons:Seborrheic dermatitis Apply 3 times weekly 120 mL 1 5 Active Active Problems Problem Noted Date [...] Complains hit rubs against clothing. 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 Tesfaye will utilize [facility] services for OP therapy. Declined medication at [...] EST): Recently treated at the [facility] [place] for left leg infection 07/20/2024, prescribed clortrimazole [...] Description 03/11/2025 3:30 PM EDT Office Visit [facility] [address] [place] [phone] Vilma Rosario FNP Lymphedema of both lower extremities (Primary Dx); Seborrheic dermatitis; Dietary counseling; Exercise counseling; Severe anxiety with panic 03/11/2025 Travel 03/10/2025 Telephone [facility] [address] [place] [phone] Kody Rodriguez [place] CHART PREP 03/04/2025 Patient Outreach [facility] [address] [place] [phone] Vilma Rosario FNP Care Coordination (CHW outreach SDOH employment/jobs search) 03/04/2025 Patient Outreach [facility] [address] [place] [address] Vilma Rosario FNP Pre-visit Planning (SDOH positive. Tobacco screening negative.) from Last 3 Months Family History Medical [...] Disability Screening 1983 Family Planning (PISQ) 1998 HPV Vaccines (1 - Male 3-dose series) 1998 Hepatitis B Vaccines (1 of 3 - 19+ 3-dose series) 2002 COVID-19 Vaccine (3 - 2024- season) 2025 02/14/2021, 01/17/2021 Influenza Vaccine (#1) 2025 7, [...] PM EST) Hepatitis C Antibody Nonreactive Nonreactive [facility] Comment:Antibodies to HCV no t detected; does not exclude early acuteHCV infection. Blood Venous blood specimen / Unknown 08/04/2024 12:23 PM EST 08/04/2024 1:16 PM EST us Vilma Rosario [facility] LAB BLOOD ORDERABLES Final Res ult [facility] [address] [place] [phone] * HIV-1/2 Antigen and Antibodies, Fourth Generation, with Reflexes (08/04/2024 12:23 PM EST) HIV AB/AG Nonreactive Nonreactive [facility] Comment:HIV-1 p24 Ag and/or HIV-1/HIV-2 Ab not detected.A test result that is nonreactive does not exclude thepossibility of exposure to or infection with HIV-1 and/orHIV-2. Nonreactive results in this assay for individualswith prior exposure to HIV-1 and/or HIV-2 may be due toantigen and antibody levels that are below the limit ofdetection of this assay.The [employer] HIV Ag/Ab Combo assay result andsupplemental assay results should be interpreted inconjunction with the patient's clinical presentation,history and other laboratory results. If the results areinconsistent with clinical evidence, additional testing issuggested to confirm the result. Blood Venous blood specimen / Unknown 08/04/2024 12:23 PM EST 08/04/2024 1:16 PM EST us Vilma Rosario COURIER DRIVER LAB BLOOD ORDERABLES Final Res ult Performing Organization Address City/[facility]/ZIP Co de Phone Number [facility] [address] [place] [phone] * (ABNORMAL) LIPID PANEL, STANDARD (02/06/2022 9:13 AM EDT) Chol/HDLC Ratio 3.5 <5.0 (calc) [facility] Cholesterol, Total 111 <200 mg/dL [facility] HDL Cholesterol 32(L) > OR = 40 mg/dL [facility] LDL Cholesterol 64 mg/dL (calc) [facility] Comment: Reference range: <100 Desirable range <100 mg/dL for primary prevention; <70 mg/dL for patients with CHD or diabetic patients with > or = 2 CHD risk factors. LDL-C is now calculated using the Kris-Alexis calculation, which is a validated novel method providing better accuracy than the Friedewald equation in the estimation of LDL-C. Kris SS et al. GIOVANNY. 2013;310(19): 2337-4766 (http://education.Liquid5.RocketPlay/faq/BXX169) Non-HDL Cholesterol 79 <130 mg/dL (calc) [facility] Comment: For patients with diabetes plus 1 major ASCVD risk factor, treating to a non-HDL-C goal of <100 mg/dL (LDL-C of <70 mg/dL) is considered a therapeutic option. Triglycerides 73 <150 mg/dL [facility] 02/06/2022 9:13 AM EDT us Richie Calixto MD LAB BLOOD ORDERABLES Final Resul t [facility] [address] from Last 3 Months or Most Recently Relevant to Health Maintenance Insurance [facility] , [address] [place] [address] Care Teams It Network Engineer Relationship Specialty Start Date End Date Vilma Rosario FNP [address] [place] [phone] PCP - General Family Medicine 07/13/24
--- NOTE | 2025-06-03 12:42 | MHC.OFFVIS ---
Vital Signs 06/03/25 12:42 Height 5 ft 8 in Intake Visit Reasons: Left SSV RFA Advisor To Command In Combat Required: No Accompanied by: Self / Same As Patient Allergies vancomycin Allergy (Unknown, Verified 06/03/25 12:43) Hives [facility] Medical History Lymphedema Social History Household Members: Family Do you presently have visiting nurse or other home services: No Alcohol intake: current Alcohol intake frequency: holidays/special occasions only Substance Use Type: Marijuana service: No Current occupational status: unemployed Office Procedures Vascular Office Procedure Details Details: Diagnosis:? Varicose veins with inflammation of left leg Procedure: Endovenous radiofrequency ablation of the left small saphenous vein(s) of the lower extremity Anesthesia: Local infiltration 5 cc, Tumescent 200 cc. Estimated Blood Loss: Minimal The patient was transferred to the procedure suite and the insufficient small saphenous vein was mapped by ultrasound and diagrammed on the overlying skin. The depth and diameter of the vein(s) to be treated was documented. The varicose tributary veins and suitable access sites were identified and mapped as well. The patient was then positioned prone on the procedure table. The affected limb was prepped and draped in the usual sterile fashion. The RF catheter was placed on the sterile field, flushed and wiped down, prepared, and connected by a sterile cable. The patient was placed in a prone position and local anesthesia was instilled in the skin overlying the access site. A skin incision was made overlying the identified and mapped small saphenous vein entry site. The vein was accessed using ultrasound guidance and the Seldinger technique, a guide wire was introduced through the needle, which was then exchanged over the guide wire for a 6F sheath, which was secured in place. The guide wire was removed and the sheath was flushed. The RF catheter was placed into the vein through the sheath and preferentially, imaging was used to place the catheter tip just inferior to the saphenopopliteal junction. Additionally, it was confirmed by ultrasound guidance that the catheter tip was also placed a minimum of 1.5cm distal to the saphenopopliteal junction. After the RF catheter position was verified by ultrasound, tumescent anesthesia was infiltrated, under ultrasound guidance, precisely into the perivenous compartment along the entire length of vein from the entry site to the saphenofemoral junction until a halo of fluid was noted around the vein. The patient was appropriately position. After RF catheter position was again confirmed with ultrasound imaging, and under direct external compression along the length of the heating element, RF energy was applied. The vein was segmentally ablated by heating a 3 cm segment and then indexing the catheter forward by 2.5 cm until the treatment length is completed. Total vein length treated 9 cm Total cycles of RF 4. Repeat ultrasound of the saphenous vein was performed, confirming successful treatment. The catheter and sheath were withdrawn and hemostasis established with direct pressure. After assuring hemostasis, the skin incision over the saphenous vein was closed with a bandage and a compression wrap was applied from the level of the foot to the most proximal level of the thigh. Discharge instructions were given to the patient inclusive of follow-up ultrasound and recommended follow-up with us [id number] - Endovenous RF, 1st Vein All charges added?: Procedure code (CPT) selection complete Assessment & Plan Assessment & Plan (1) Varicose veins of left lower extremity with inflammation: Comment: 01/07/2025 - left great saphenous vein radiofrequency ablation 06/03/2025 - left small saphenous vein radiofrequency ablation Code(s): I83.12 - Varicose veins of left lower extremity with inflammation Category: Medical Plan: See op note Coding Level of Care Code Procedure Only Diagnoses Varicose veins of left lower extremity with inflammation I83.12 CPT Codes Details - Vascular 1: 50828 - Endovenous RF, 1st Vein ([id number])
== END 2025-06-03 12:33 | disposition home or self-care (01) ==
LOC: HO.HVS 11:31
PROVIDERS: PCP Nurse Practitioner Family; Visit Provider Surgery Vascular Surgery
DX: I83.12 Varicose veins of left lower extremity with inflammation (principal)
CPT/HCPCS: 36475

== ENCOUNTER → 2025-06-03 | Outpatient (BNVA) | payer OTHER, SELFPAY | PROVIDERS: PCP Nurse Practitioner Family; Visit Provider Surgery Vascular Surgery | DX: I83.12 Varicose veins of left lower extremity with inflammation (principal) | CPT/HCPCS: 36475; J2003; J2004 ==

== ENCOUNTER 2025-06-21 15:56 | Outpatient (AMB) | payer OTHER, SELFPAY ==
--- NOTE | 2025-06-21 15:57 | A.OFFVIS_ITS ---
Vital Signs 06/21/25 15:57 Height 5 ft 8 in Intake Visit Reasons: 2 week follow up L SSV RFA Intake Note: 2 week follow up Left SSV RFA 06/03/25 w/ hx of Right GSV RFA, Left GSV RFA. Pt states that swelling does decrease faster after elevating. 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 Reports he is doing fairly well from that. Overall note postprocedure issues. He is concerned about his continued swelling of the right lower extremity. Now presents for routine follow-up. [facility] Medical History Lymphedema Social History Household Members: Family Do you presently have visiting nurse or other home services: No Alcohol intake: current Alcohol intake frequency: holidays/special occasions only Substance Use Type: Marijuana service: No Current occupational status: unemployed Review of Systems Const Reports as per HPI ENT Reports no additional complaints Card Denies chest pain, Denies chest pain at rest and Denies chest pain with activity Resp Denies chest congestion and Denies cough GI Reports no additional complaints Musc Details: pain over varicosities, aching of lower extremities, swelling, cramping, heaviness and tiredness, itching Denies abnormal gait Skin/Breast Reports pruritus and Denies wounds Neuro Reports no additional complaints and Denies abnormal gait Psych Denies no additional complaints Physical Exam Const General: cooperative, healthy appearing and comfortable Orientation/consciousness: oriented to person, oriented to place and oriented to time Neck Carotids: no bruits Chest Chest palpation & inspection: normal inspection of the chest and normal palpation of entire chest wall Resp Effort & Inspection: normal respiratory effort and able to speak in complete sentences Cardio Rate: regular rate Heart sounds: S1 normal heart sound present and S2 normal heart sound present Peripheral pulses: Peripheral pulses 2+ throughout GI Inspection: Yes normal to inspection Skin Other: +2 edema, large rope-like varicosities greater than 4 mm CEAP Classification C4 - skin color changes Ep - Etiology Primary As - superficial veins P - reflux General skin exam: dry skin Neuro General: oriented to person, oriented to place and oriented to time Extrem Right lower extremity: full ROM, normal capillary refill and edema Left lower extremity: full ROM, normal capillary refill and edema Psych Mental Status: mental status grossly normal Results Reviewed Results Reviewed: Brief summary of venous insufficiency testing is as follows: right great saphenous vein: Ablated right small saphenous vein: Positive right accessory vein: none present left great saphenous vein: Ablated left small saphenous vein: Ablated left accessory vein: none present Please note there is no evidence of any venous aneurysms or significant tortuosity Assessment & Plan Assessment & Plan (1) Varicose veins of left lower extremity with inflammation: Comment: 01/07/2025 - left great saphenous vein radiofrequency ablation 06/03/2025 - left small saphenous vein radiofrequency ablation Code(s): I83.12 - Varicose veins of left lower extremity with inflammation Category: Medical Plan: Doing well. see below (2) Varicose veins of right lower extremity with inflammation: Comment: 03/04/2025 - right great saphenous vein ablation Code(s): I83.11 - Varicose veins of right lower extremity with inflammation Category: Medical Plan: This patient has varicose veins with inflammation. They continue to be a source of discomfort for the patient. The patient has tried conservative treatment with compression, leg elevation and exercise program for over 3 months time. They have been compliant with all treatment. This has provided minimal relief for the patient. I do not anticipate this course of treatment will alter the underlying etiology. The patient has been scheduled for lower extremity venous treatment inclusive of --- right small saphenous vein ablation.. Risks, benefits, and complications of this procedure has been discussed in detail with the patient including but not limited to bleeding, infection, and the development of a DVT. The patient has demonstrated a clear understanding and has consented. He was unclear to the timeline of wanting his ablation. He will reach out to us if he wants to pursue this. Thank you for allowing us to participate in this patient's care. If there are any questions or concerns please do not hesitate to contact us. Coding Level of Care Code Est Pt Level 4 (01904) Diagnoses Varicose veins of left lower extremity with inflammation I83.12 Varicose veins of right lower extremity with inflammation I83.11
--- OUTSIDE RECORDS SUMMARY | 2025-06-21 18:47 | XMS_ITS | Encounter Summary ---
Author Organization [facility] Address [address] [place] [address] Care Team Providers Care Director Of Photography Name Role Phone Richie Calixto MD Primary Care Provider Rajesh Tapia MD Primary Care Provider Un available Reason for Visit * Reason Onset Date Comments VNA Call 11/18/2013 Encounter Details Date Type Department Care Team Description 11/18/2013 Telephone Adult Medicine [address] [address] Name, MD Richie VNA Call Social History Tobacco Use Types Packs/Day Years Used Date Smoking Tobacco: Never Smokeless Tobacco: Never Alcohol Use Standard Drinks/Week Comments Yes 0 (1 standard drink = 0.6 oz pur e alcohol) social Sex Assigned at Date Recorded Not on file documented as of this encounter Miscellaneous Notes * Telephone Encounter - Christie Ross R.N. - 11/18/2013 3:53 PM EST VNA was havign difficulty with complaince and ask if he can be seen I left a message for the patient to return my call. * Telephone Encounter - Meena Brito - 11/18/2013 3:36 PM EST VNA CALL Which VNA office is calling? [facility] Full name of caller: Rosemarie Durham The caller is A nurse Is the caller at the patients home?: NO Reason for call: reconcile medications, especially to know when he stopped the antibiotic that pt had been Does caller need an urgent call back? YES , by end of day Was CONTACT Telephone # obtained above?: YES documented in this encounter Plan of Treatment Not on file documented as of this encounter Visit Diagnoses Not on filedocumented in this encounter Care Teams Director Of Photography Relationship Specialty Start Date End Date Name, MD Richie PCP - General 10/22/06 12/10/15 Rajesh Campuzano MD PCP - General Internal Medicine 12/11/15 documented as of this encounter
--- OUTSIDE RECORDS SUMMARY | 2025-06-21 18:47 | XMS_ITS | Encounter Summary ---
Author Organization [facility] Address [address] [place] [address] Care Team Providers Care Combination Presser Name Role Phone Name, Richie GLASER Primary Care Provider Rajesh Tapia MD Primary Care Provider Un available Reason for Visit * Reason Onset Date Comments Faxed Order 06/09/2014 [facility] Encounter Details Date Type Department Care Team Description 06/09/2014 Telephone Adult [address] [address] Name, MD Richie Faxed Order ([facility] ) Social History Tobacco Use Types Packs/Day Years Used Date Smoking Tobacco: Never Smokeless Tobacco: Never Alcohol Use Standard Drinks/Week Comments Yes 0 (1 standard drink = 0.6 oz pur e alcohol) social Sex Assigned at Date Recorded Not on file documented as of this encounter Miscellaneous Notes * Telephone Encounter - Shey Felton - 06/09/2014 10:38 AM EDT Physician's order to be signed Fax to [phone] Phone [phone] documented in this encounter Plan of Treatment Not on file documented as of this encounter Visit Diagnoses Not on filedocumented in this encounter Care Teams Combination Presser Relationship Specialty Start Date End Date Name, MD Richie PCP - General 10/22/06 12/10/15 Rajesh Campuzano MD PCP - General Internal Medicine 12/11/15 documented as of this encounter
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
--- OUTSIDE RECORDS SUMMARY | 2025-06-21 18:47 | XMS_ITS | Encounter Summary ---
Author Organization [facility] Address [address] [place] [address] Care Team Providers Care Tail Board Man Name Role Phone Richie Smyth MD Primary Care Provider Rajesh Tapia MD Primary Care Provider Un available Reason for Visit * Reason Onset Date Comments Faxed Order 01/06/2013 [facility] Encounter Details Date Type Department Care Team Description 01/06/2013 Telephone Adult Medicine [address] [address] Name, MD Richie Faxed Order ([facility]) Social History Tobacco Use Types Packs/Day Years Used Date Smoking Tobacco: Never Smokeless Tobacco: Never Alcohol Use Standard Drinks/Week Comments Yes 0 (1 standard drink = 0.6 oz pur e alcohol) social Sex Assigned at Date Recorded Not on file documented as of this encounter Miscellaneous Notes * Telephone Encounter - Bhargavi Fernandez M.A. - 01/29/2013 4:50 PM EDT [facility] Care form signed and faxed. * Telephone Encounter - Caroline Finney - 01/06/2013 1:45 PM EDT ORDERS FAXED FOR DR SMYTH TO SIGN AND FAX BACK TO [facility] [phone] documented in this encounter Plan of Treatment Not on file documented as of this encounter Visit Diagnoses Not on filedocumented in this encounter Care Teams Tail Board Man Relationship Specialty Start Date End Date Name, MD Richie PCP - General 10/22/06 12/10/15 Rajesh Campuzano MD PCP - General Internal Medicine 12/11/15 documented as of this encounter
--- OUTSIDE RECORDS SUMMARY | 2025-06-21 18:47 | XMS_ITS | Encounter Summary ---
Author Organization [facility] Address [address] [place] [address] Care Team Providers Care Parachute Rigger Name Role Phone Name, Richie GLASER Primary Care Provider Rajesh Tapia MD Primary Care Provider Un available Encounter Details Date Type Department Care Team Description 11/01/2014 Release of Information Medical Records [address] [place] [id number] [facility] Social History Tobacco Use Types Packs/Day Years Used Date Smoking Tobacco: Never Smokeless Tobacco: Never Alcohol Use Standard Drinks/Week Comments Yes 0 (1 standard drink = 0.6 oz pur e alcohol) social Sex Assigned at Date Recorded Not on file documented as of this encounter Plan of Treatment Not on file documented as of this encounter Visit Diagnoses Not on filedocumented in this encounter Care Teams Parachute Rigger Relationship Specialty Start Date End Date Name, MD Richie PCP - General 10/22/06 12/10/15 Rajesh Campuzano MD PCP - General Internal Medicine 12/11/15 documented as of this encounter
--- OUTSIDE RECORDS SUMMARY | 2025-06-21 18:47 | XMS_ITS | Encounter Summary ---
Author Organization [facility] Address [address] [place] [address] Care Team Providers Care Boring Inspector Name Role Phone Name, Richie GLASER Primary Care Provider Rajesh Tapia MD Primary Care Provider Un available Reason for Visit * Reason Onset Date Comments Faxed Order 01/02/2015 [facility] Encounter Details Date Type Department Care Team Description 01/02/2015 Telephone Adult [address] [address] Name, MD Richie [facility] Social History Tobacco Use Types Packs/Day Years Used Date Smoking Tobacco: Never Smokeless Tobacco: Never Alcohol Use Standard Drinks/Week Comments Yes 0 (1 standard drink = 0.6 oz pur e alcohol) social Sex Assigned at Date Recorded Not on file documented as of this encounter Miscellaneous Notes * Telephone Encounter - Caroline Neal - 01/02/2015 9:38 AM EDT Faxed order received and placed in inbox. Please fax to [phone] documented in this encounter Plan of Treatment Not on file documented as of this encounter Visit Diagnoses Not on filedocumented in this encounter Care Teams Boring Inspector Relationship Specialty Start Date End Date Name, MD Richie PCP - General 10/22/06 12/10/15 Rajesh Campuzano MD PCP - General Internal Medicine 12/11/15 documented as of this encounter
--- OUTSIDE RECORDS SUMMARY | 2025-06-21 18:47 | XMS_ITS | Encounter Summary ---
Author Organization [facility] Address [address] [place] [address] Care Team Providers Care Informatics Developer Name Role Phone Name, Richie GLASER Primary Care Provider Rajesh Tapia MD Primary Care Provider Un available Encounter Details Date Type Department Care Team Description 12/21/2013 Hospital Medical Records [address] [place] [id number] [address] Barker Social History Tobacco Use Types Packs/Day Years [...] on filedocumented in this encounter Care Teams Informatics Developer Relationship Specialty Start Date End Date Name, MD Richie PCP - General 10/22/06 12/10/15 Rajesh Campuzano MD PCP - General Internal Medicine 12/11/15 documented as of this encounter
--- OUTSIDE RECORDS SUMMARY | 2025-06-21 18:47 | XMS_ITS | Encounter Summary ---
Author Organization [facility] Address [address] [place] [address] Care Team Providers Care Epic Ambulatory Analyst Name Role Phone Name, Richie GLASER Primary Care Provider Rajesh Tapia MD Primary Care Provider Un available Encounter Details Date Type Department Care Team Description 01/20/2013 Steel Plate Caulker Report Medical Records [address] [place] [id number] [facility] [place] Social History Tobacco Use Types Packs/Day Years [...] on filedocumented in this encounter Care Teams Epic Ambulatory Analyst Relationship Specialty Start Date End Date Name, MD Richie PCP - General 10/22/06 12/10/15 Rajesh Campuzano MD PCP - General Internal Medicine 12/11/15 documented as of this encounter
--- OUTSIDE RECORDS SUMMARY | 2025-06-21 18:47 | XMS_ITS | Encounter Summary ---
Author Organization [facility] Address [address] [place] [address] Care Team Providers Care Printed Circuit Board Designer Name Role Phone Richie Calixto MD Primary Care Provider Rajesh Tapia MD Primary Care Provider Un available Reason for Visit * Reason Onset Date Comments er follow up 04/28/2012 Encounter Details Date Type Department Care Team Description 04/28/2012 Telephone Adult Medicine [address] [address] Name, MD Richie er follow up Social History Tobacco Use Types Packs/Day Years Used Date Smoking Tobacco: Never Alcohol Use Standard Drinks/Week Comments Yes 0 (1 standard drink = 0.6 oz pur e alcohol) social Sex Assigned at Date Recorded Not on file documented as of this encounter Miscellaneous Notes * Telephone Encounter - Christie Ross R.N. - 04/28/2012 3:39 PM EDT Pt was seen for cellulitis, had neg blood culture and Was sent home with po antibioitcs. wants to be seen before Friday for f/u. Pt scheduled 04/30 at 10:00 * Telephone Encounter - Lindy Ennis - 04/28/2012 1:44 PM EDT Symptoms patient is presenting: lymphedema, patient was seen at [facility] has an apt for 05/01/2012. Patient is not feeling any better and was wondering if he could be seen sooner. How long has patient had these symptoms?: released 04/24 PCP: Richie Calixto MD Payor: WORKERS COMPENSATION Plan: WORKERS COMPENSATION/[place] Product Type: OTHER documented in this encounter Plan of Treatment Not on file documented as of this encounter Visit Diagnoses Not on filedocumented in this encounter Care Teams Printed Circuit Board Designer Relationship Specialty Start Date End Date Name, MD Richie PCP - General 10/22/06 12/10/15 Rajesh Campuzano MD PCP - General Internal Medicine 12/11/15 documented as of this encounter
--- OUTSIDE RECORDS SUMMARY | 2025-06-21 18:47 | XMS_ITS | Encounter Summary ---
Author Organization [facility] Address [address] [place] [address] Care Team Providers Care Ladle Builder Name Role Phone Name, Richie GLASER Primary Care Provider Rajesh Tapia MD Primary Care Provider Un available Reason for Visit * Reason Onset Date Comments Faxed Order 05/29/2015 [facility] Encounter Details Date Type Department Care Team Description 05/29/2015 Telephone Adult Medicine [address] [address] Name, MD Richie Faxed Order ([facility]) Social History Tobacco Use Types Packs/Day Years Used Date Smoking Tobacco: Never Smokeless Tobacco: Never Alcohol Use Standard Drinks/Week Comments Yes 0 (1 standard drink = 0.6 oz pur e alcohol) social Sex Assigned at Date Recorded Not on file documented as of this encounter Miscellaneous Notes * Telephone Encounter - Gabriella Wheat - 06/01/2015 2:11 PM EDT Please review, sign and fax back to [facility] [phone], * Telephone Encounter - Gabriella Wheat - 05/29/2015 3:53 PM EDT Please review, sign and fax back to [facility] [phone], documented in this encounter Plan of Treatment Not on file documented as of this encounter Visit Diagnoses Not on filedocumented in this encounter Care Teams Ladle Builder Relationship Specialty Start Date End Date Name, MD Richie PCP - General 10/22/06 12/10/15 Rajesh Campuzano MD PCP - General Internal Medicine 12/11/15 documented as of this encounter
--- OUTSIDE RECORDS SUMMARY | 2025-06-21 18:47 | XMS_ITS | Encounter Summary ---
Author Organization [facility] Address [address] [place] [address] Care Team Providers Care Labor Relations Supervisor Name Role Phone Name, Richie GLASER [facility] Primary Care Provider Un available Encounter Details Date Type Department Care Team Description 04/22/2012 Hospital Medical Records [address] [place] [address] Jennifer Owusu [address] [place] [phone] Social History Tobacco Use Types Packs/Day Years [...] on filedocumented in this encounter Care Teams Labor Relations Supervisor Relationship Specialty Start Date End Date Name, MD Richie PCP - General 10/22/06 12/10/15 Rajesh Campuzano MD PCP - General Internal Medicine 12/11/15 documented as of this encounter
--- OUTSIDE RECORDS SUMMARY | 2025-06-21 18:47 | XMS_ITS | Encounter Summary ---
Author Organization [facility] Address [address] [place] [address] Care Team Providers Care Final Inspection Supervisor Name Role Phone Richie Calixto MD Primary Care Provider Rajesh Tapia MD Primary Care Provider Un available Reason for Visit * Reason Onset Date Comments Faxed Order 11/25/2014 Encounter Details Date Type Department Care Team Description 11/25/2014 Telephone Adult Medicine [address] [address] Richie Calixto MD Faxed Order Social History Tobacco Use Types Packs/Day Years Used Date Smoking Tobacco: Never Smokeless Tobacco: Never Alcohol Use Standard Drinks/Week Comments Yes 0 (1 standard drink = 0.6 oz pur e alcohol) social Sex Assigned at Date Recorded Not on file documented as of this encounter Miscellaneous Notes * Telephone Encounter - Baljit Flynn - 11/25/2014 12:15 PM EDT Plan of care for dr name to sign and date documented in this encounter Plan of Treatment Not on file documented as of this encounter Visit Diagnoses Not on filedocumented in this encounter Care Teams Final Inspection Supervisor Relationship Specialty Start Date End Date Richie Calixto MD PCP - General 10/22/06 12/10/15 Rajesh Campuzano MD PCP - General Internal Medicine 12/11/15 documented as of this encounter
--- OUTSIDE RECORDS SUMMARY | 2025-06-21 18:47 | XMS_ITS | Encounter Summary ---
Author Organization [facility] Address [address] [place] [address] Care Team Providers Care Sammying Machine Operator Name Role Phone Name, Richie GLASER Primary Care Provider Rajesh Tapia MD Primary Care Provider Un available Encounter Details Date Type Department Care Team Description 03/29/2013 Hospital Medical Records [address] [place] [address] Jayson Cesar MD Social History Tobacco Use Types Packs/Day Years [...] on filedocumented in this encounter Care Teams Sammying Machine Operator Relationship Specialty Start Date End Date Name, MD Richie PCP - General 10/22/06 12/10/15 Rajesh Campuzano MD PCP - General Internal Medicine 12/11/15 documented as of this encounter
--- OUTSIDE RECORDS SUMMARY | 2025-06-21 18:47 | XMS_ITS | Encounter Summary ---
Author Organization [facility] Address [address] [place] [address] Care Team Providers Care Survey Workers Supervisor Name Role Phone Durga, Richie GLASER Primary Care Provider Rajesh Tapia MD Primary Care Provider Un available Reason for Visit * Reason Onset Date Comments Lymphadenopathy 07/06/2012 Encounter Details Date Type Department Care Team Description 07/06/2012 Telephone Adult Medicine [address] [address] Name, MD Richie Lymphadenopathy Social History Tobacco Use Types Packs/Day Years Used Date Smoking Tobacco: Never Alcohol Use Standard Drinks/Week Comments Yes 0 (1 standard drink = 0.6 oz pur e alcohol) social Sex Assigned at Date Recorded Not on file documented as of this encounter Miscellaneous Notes * Telephone Encounter - Christie Ross R.N. - 07/06/2012 10:10 AM EDT Pt has had leg pain with a sore behind the knee for the past 3 day Pt has no chest pain or SOB, no N/V/D or fever, has lymphedema and the left leg is usually larger than the right. The leg is not red or hot, he has pain color change in the lower leg and wilks, he haspain in the left leg from the knee to the ankle, feels like muscle aching in the leg. Has more painwhen walking Pt advised to go to the ed for leg pain and swelling he understands and agrees. * Telephone Encounter - Rebecca Herzog - 07/06/2012 10:02 AM EDT Symptoms patient is presenting: pain in leg and redness, he has lymphoedema , sore behind the knee,his leg is bigger than usual, also he was mis- booked for form that only his pcp can fill out , please call to book him, thank you. Physical needed How long has patient had these symptoms?: past few days PCP: Richie Calixto MD Payor: WORKERS COMPENSATION Plan: WORKERS COMPENSATION/[place] Product Type: OTHER documented in this encounter Plan of Treatment Not on file documented as of this encounter Visit Diagnoses Not on filedocumented in this encounter Care Teams Survey Workers Supervisor Relationship Specialty Start Date End Date Richie Calixto MD PCP - General 10/22/06 12/10/15 Rajesh Campuzano MD PCP - General Internal Medicine 12/11/15 documented as of this encounter
--- OUTSIDE RECORDS SUMMARY | 2025-06-21 18:47 | XMS_ITS | Encounter Summary ---
Author Organization [facility] Address [address] [place] [address] Care Team Providers Care Telegraph Editor Name Role Phone Rajesh Campuzano MD Primary Care Provider Un available Reason for Visit * Reason Onset Date Comments Medicare Wellness Visit 02/09/2016 Encounter Details Date Type Department Care Team Description 02/09/2016 Telephone ANNUAL WELLNESS [address] [address] Wellness Nurse, [address] [address] Medicare Wellness Visit Social History Tobacco Use Types Packs/Day Years Used Date Smoking Tobacco: Never Smokeless Tobacco: Never Alcohol Use Standard Drinks/Week Comments Yes 0 (1 standard drink = 0.6 oz pur e alcohol) social Sex Assigned at Date Recorded Not on file documented as of this encounter Miscellaneous Notes * Telephone Encounter - Chen Lopez - 02/09/2016 2:30 PM EDT I called patient to schedule a Medicare Annual Wellness visit. The patient did not answer and a message was left on their answering machine to call back. If the patient returns my call, please try toreach me at my extension ([phone]). If I am available to speak with them, please transfer the call. If I am not available to take the patient call, please verify the telephone number that I can reach [facility] at and forward the telephone encounter to the [place] # [phone]. I will call them backas soon as I am able. Thank You, Chen documented in this encounter Plan of Treatment Not on file documented as of this encounter Visit Diagnoses Not on filedocumented in this encounter Care Teams Telegraph Editor Relationship Specialty Start Date End Date Rajesh Campuzano MD PCP - General Internal Medicine 12/11/15 documented as of this encounter
--- OUTSIDE RECORDS SUMMARY | 2025-06-21 18:47 | XMS_ITS | Encounter Summary ---
Author Organization [facility] Address [address] [place] [address] Care Team Providers Care Branch Controller Name Role Phone Name, Richie GLASER Primary Care Provider Rajesh Tapia MD Primary Care Provider Un available Encounter Details Date Type Department Care Team Description 04/01/2013 Hospital Medical Records [address] [place] [address] Jannet Alaniz Social History Tobacco Use Types Packs/Day Years [...] on filedocumented in this encounter Care Teams Branch Controller Relationship Specialty Start Date End Date Name, MD Richie PCP - General 10/22/06 12/10/15 Rajesh Campuzano MD PCP - General Internal Medicine 12/11/15 documented as of this encounter
--- OUTSIDE RECORDS SUMMARY | 2025-06-21 18:47 | XMS_ITS | Encounter Summary ---
Author Organization [facility] Address [address] [place] [address] Care Team Providers Care Marble Machine Tender Name Role Phone Name, Richie GLASER Primary Care Provider Rajesh Tapia MD Primary Care Provider Un available Encounter Details Date Type Department Care Team Description 02/07/2010 [facility] Pull[facility] And Coiler Report Medical Records [address] [place] [address] Social History Tobacco Use Types Packs/Day Years Used Date Smoking Tobacco: Never Alcohol Use Standard Drinks/Week Comments Yes 0 (1 standard drink = 0.6 oz pur e alcohol) social Sex Assigned at Date Recorded Not on file documented as of this encounter Plan of Treatment Not on file documented as of this encounter Visit Diagnoses Not on filedocumented in this encounter Care Teams Marble Machine Tender Relationship Specialty Start Date End Date Name, MD Richie PCP - General 10/22/06 12/10/15 Rajesh Campuzano MD PCP - General Internal Medicine 12/11/15 documented as of this encounter
--- OUTSIDE RECORDS SUMMARY | 2025-06-21 18:47 | XMS_ITS | Encounter Summary ---
Author Organization [facility] Address [address] [place] [address] Care Team Providers Care Taximeter Repairer Name Role Phone Richie Calixto MD Primary Care Provider Rajesh Tapia MD Primary Care Provider Un available Reason for Visit * Reason Onset Date Comments DME Request 01/27/2014 Encounter Details Date Type Department Care Team Description 01/27/2014 Telephone Adult Medicine [address] [address] Richie Calixto MD DME Request Social History Tobacco Use Types Packs/Day Years Used Date Smoking Tobacco: Never Smokeless Tobacco: Never Alcohol Use Standard Drinks/Week Comments Yes 0 (1 standard drink = 0.6 oz pur e alcohol) social Sex Assigned at Date Recorded Not on file documented as of this encounter Miscellaneous Notes * Telephone Encounter - Araceli Reeder M.A. - 02/01/2014 1:22 PM EDT Script on dr names desk * Telephone Encounter - Richie Calixto MD - 01/27/2014 5:26 PM EDT Yes it is * Telephone Encounter - Araceli Reeder M.A. - 01/27/2014 10:45 AM EDT Ok to order? * Telephone Encounter - Shey Felton - 01/27/2014 10:41 AM EDT Name of Product: Lymphedema pump Specific information about product - # Needed 1 Reason/Diagnosis: lymphdema When completed: Fax to other office/MD at fax # [phone] [facility] [phone] phone - Natalia documented in this encounter Plan of Treatment Not on file documented as of this encounter Visit Diagnoses Not on filedocumented in this encounter Care Teams Taximeter Repairer Relationship Specialty Start Date End Date Name, MD Richie PCP - General 10/22/06 12/10/15 Rajesh Campuzano MD PCP - General Internal Medicine 12/11/15 documented as of this encounter
--- OUTSIDE RECORDS SUMMARY | 2025-06-21 18:47 | XMS_ITS | Clinical Summary ---
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 Fluocinolone Acetonide Scalp ([place]-Smoothe/ FS Scalp) 0.01 % oilIndications: Seborrheic dermatitis [...] hit rubs against clothing. Plan Referral special education associate Severe anxiety with panic 08/04/2024 Assessment & [...] seek out for services. Tesfaye will utilize [facility] services for OP therapy. Declined medication at [...] EST): Recently treated [facility] for left leg infection 07/20/2024, prescribed clortrimazole [...] recurrent ear infections as child Depression 12/08/2008 Family History Medical History Relation Name Comments [...] 3-dose series) 2002 COVID-19 Vaccine ( season) 2025 02/14/2021, 01/17/2021 Influenza Vaccine (#1) 2025 7, 06/02/2017, 05/31/2016, Additional history exists Alcohol/Substance Use Screening 11/05/2025 11/05/2024 Depression Screening 11/05/2025 11/05/2024, 11/05/19 25 SDOH Screening 03/04/2026 03/04/2025 Tobacco Screening 03/11/2026 [...] PM EST) Hepatitis C Antibody Nonreactive Nonreactive [facility] Comment:Antibodies to HCV no t detected; does not exclude early acuteHCV infection. Blood Venous blood specimen / Unknown 08/04/2024 12:23 PM EST 08/04/2024 1:16 PM EST [facility] LAB BLOOD ORDERABLES Final Res ult Performing Organization Address [facility]/ZIP Co de Phone Number [facility] [address] [place] [phone] * HIV-1/2 Antigen and Antibodies, Fourth Generation, with Reflexes (08/04/2024 12:23 PM EST) Pathologist [facility] HIV AB/AG Nonreactive Nonreactive [facility] [...] below the limit ofdetection of this assay.The Moasis HIV Ag/Ab Combo assay result andsupplemental assay results should be interpreted inconjunction with the patient's clinical presentation,history and other laboratory results. If the results areinconsistent with clinical evidence, additional testing issuggested to confirm the result. Blood Venous blood specimen / Unknown 08/04/2024 12:23 PM EST 08/04/2024 1:16 PM EST [facility] LAB BLOOD ORDERABLES Final Res ult Performing Organization Address [facility] Co de Phone Number [facility] [address] [place] [phone] * (ABNORMAL) LIPID PANEL, STANDARD (02/06/2022 9:13 AM EDT) Pathologist [facility] Chol/HDLC Ratio 3.5 <5.0 (calc) [facility] [...] factors. LDL-C is now calculated using the Ronald calculation, which is a validated novel method providing better accuracy than the Friedewald equation in the estimation of LDL-C. Kris MAGANA et al. GIOVANNY. 2013;310(19): 5458-4062 (http://education.GoMetro.[employer]/faq/QOI041) Non-HDL Cholesterol 79 <130 mg/dL (calc) [facility] Comment: For patients with diabetes plus 1 major ASCVD risk factor, treating to a non-HDL-C goal of <100 mg/dL (LDL-C of <70 mg/dL) is considered a therapeutic option. Triglycerides 73 <150 mg/dL [facility] 02/06/2022 9:13 AM EDT us Richie Calixto MD LAB BLOOD ORDERABLES Final Resul t [facility] [address] from Last 3 Months or Most Recently Relevant to Health Maintenance Insurance [facility] , [address] [place] [address] Care Teams Concrete Mixing Plant Laborer Relationship Specialty Start Date End Date Vilma Rosario FNP [address] [place] [phone] PCP - General Family Medicine 07/13/24
--- OUTSIDE RECORDS SUMMARY | 2025-06-21 18:47 | XMS_ITS | Encounter Summary ---
Author Organization [facility] Address [address] [place] [address] Care Team Providers Care Rehabilitation Services Coordinator Name Role Phone Name, Richie GLASER Primary Care Provider Rajesh Tapia MD Primary Care Provider Un available Encounter Details Date Type Department Care Team Description 10/20/2012 Ice Cream Dipper Report Medical Records [address] [place] [address] German Hand Social History Tobacco Use Types Packs/Day Years [...] on filedocumented in this encounter Care Teams Rehabilitation Services Coordinator Relationship Specialty Start Date End Date Name, MD Richie PCP - General 10/22/06 12/10/15 Rajesh Campuzano MD PCP - General Internal Medicine 12/11/15 documented as of this encounter
--- OUTSIDE RECORDS SUMMARY | 2025-06-21 18:47 | XMS_ITS | Encounter Summary ---
Author Organization [facility] Address [address] [place] [address] Care Team Providers Care Dry Placer Machine Operator Name Role Phone Name, Richie GLASER Primary Care Provider Rajesh Tapia MD Primary Care Provider Un available Reason for Visit * Reason Onset Date Comments Faxed Order 02/24/2015 [facility] Encounter Details Date Type Department Care Team Description 02/24/2015 Telephone Adult Medicine [address] [address] Name, MD Richie Faxed Order ([facility]) Social History Tobacco Use Types Packs/Day Years Used Date Smoking Tobacco: Never Smokeless Tobacco: Never Alcohol Use Standard Drinks/Week Comments Yes 0 (1 standard drink = 0.6 oz pur e alcohol) social Sex Assigned at Date Recorded Not on file documented as of this encounter Miscellaneous Notes * Telephone Encounter - Jennifer Fierro - 02/24/2015 12:19 PM EDT Please sign orders and fax back documented in this encounter Plan of Treatment Not on file documented as of this encounter Visit Diagnoses Not on filedocumented in this encounter Care Teams Dry Placer Machine Operator Relationship Specialty Start Date End Date Richie Calixto MD PCP - General 10/22/06 12/10/15 Rajesh Campuzano MD PCP - General Internal Medicine 12/11/15 documented as of this encounter
--- OUTSIDE RECORDS SUMMARY | 2025-06-21 18:47 | XMS_ITS | Encounter Summary ---
Author Organization [facility] Address [address] [place] [address] Care Team Providers Care Principal Programmer Name Role Phone Name, Richie GLASER Primary Care Provider Rajesh Tapia MD Primary Care Provider Un available Reason for Visit * Reason Onset Date Comments Faxed Order 08/05/2013 [facility] Encounter Details Date Type Department Care Team Description 08/05/2013 Telephone Adult [address] [address] NameRichie MD Faxed Order ([facility]) Social History Tobacco Use Types Packs/Day Years Used Date Smoking Tobacco: Never Smokeless Tobacco: Never Alcohol Use Standard Drinks/Week Comments Yes 0 (1 standard drink = 0.6 oz pur e alcohol) social Sex Assigned at Date Recorded Not on file documented as of this encounter Miscellaneous Notes * Telephone Encounter - Caroline Finney - 08/05/2013 4:54 PM EST ORDERS FOR DR SMYTH TO SIGN AND FAX TO [phone] documented in this encounter Plan of Treatment Not on file documented as of this encounter Visit Diagnoses Not on filedocumented in this encounter Care Teams Principal Programmer Relationship Specialty Start Date End Date Richie Smyth MD PCP - General 10/22/06 12/10/15 Rajesh Campuzano MD PCP - General Internal Medicine 12/11/15 documented as of this encounter
--- OUTSIDE RECORDS SUMMARY | 2025-06-21 18:47 | XMS_ITS | Encounter Summary ---
Author Organization [facility] Address [address] [place] [address] Care Team Providers Care Director Of Community Center Name Role Phone Name, Richie GLASER Primary Care Provider Rajesh Tapia MD Primary Care Provider Un available Reason for Visit * Reason Onset Date Comments Faxed Order 05/05/2013 [facility] Encounter Details Date Type Department Care Team Description 05/05/2013 Telephone Adult Medicine [address] [address] Name, MD Richie Faxed Order ([facility]) Social History Tobacco Use Types Packs/Day Years Used Date Smoking Tobacco: Never Smokeless Tobacco: Never Alcohol Use Standard Drinks/Week Comments Yes 0 (1 standard drink = 0.6 oz pur e alcohol) social Sex Assigned at Date Recorded Not on file documented as of this encounter Miscellaneous Notes * Telephone Encounter - Caroline Finney - 05/24/2013 2:52 PM EDT Third request from [facility] for permission for patient to continue treatment. * Telephone Encounter - Dia Luna - 05/18/2013 2:57 PM EDT 2nd request from [facility] for orders to be signed and faxed back [phone] * Telephone Encounter - Caroline Finney - 05/05/2013 3:10 PM EDT Orders from [facility] for Dr Calixto to review and sign. fax back to [phone] documented in this encounter Plan of Treatment Not on file documented as of this encounter Visit Diagnoses Not on filedocumented in this encounter Care Teams Director Of Community Center Relationship Specialty Start Date End Date Name, MD Richie PCP - General 10/22/06 12/10/15 Rajesh Campuzano MD PCP - General Internal Medicine 12/11/15 documented as of this encounter
--- OUTSIDE RECORDS SUMMARY | 2025-06-21 18:48 | XMS_ITS | Encounter Summary ---
Author Organization [facility] Address [address] [place] [address] Care Team Providers Care Oral And Maxillofacial Surgery Resident Name Role Phone Name, Richie GLASER Primary Care Provider Rajesh Tapia MD Primary Care Provider Un available Encounter Details Date Type Department Care Team Description 08/02/2014 Program Production Specialist Report Medical Records [address] [place] [address] [facility] [place] Social History Tobacco Use Types Packs/Day Years [...] on filedocumented in this encounter Care Teams Oral And Maxillofacial Surgery Resident Relationship Specialty Start Date End Date Name, MD Richie PCP - General 10/22/06 12/10/15 Rajesh Campuzano MD PCP - General Internal Medicine 12/11/15 documented as of this encounter
--- OUTSIDE RECORDS SUMMARY | 2025-06-21 18:48 | XMS_ITS | Encounter Summary ---
Author Organization [facility] Address [address] [place] [address] Care Team Providers Care Byproducts Extractor Name Role Phone Name, Richie GLASER Primary Care Provider Rajesh Tapia MD Primary Care Provider Un available Reason for Visit * Reason Onset Date Comments Faxed Order 07/12/2014 [facility] Encounter Details Date Type Department Care Team Description 07/12/2014 Telephone Adult Medicine [address] [address] Name, MD Richie Faxed Order ([facility]) Social History Tobacco Use Types Packs/Day Years Used Date Smoking Tobacco: Never Smokeless Tobacco: Never Alcohol Use Standard Drinks/Week Comments Yes 0 (1 standard drink = 0.6 oz pur e alcohol) social Sex Assigned at Date Recorded Not on file documented as of this encounter Miscellaneous Notes * Telephone Encounter - Jami Abdi - 07/12/2014 11:17 AM EDT Orders for signature documented in this encounter Plan of Treatment Not on file documented as of this encounter Visit Diagnoses Not on filedocumented in this encounter Care Teams Byproducts Extractor Relationship Specialty Start Date End Date Durga, MD Richie PCP - General 10/22/06 12/10/15 Rajesh Campuzano MD PCP - General Internal Medicine 12/11/15 documented as of this encounter
--- OUTSIDE RECORDS SUMMARY | 2025-06-21 18:48 | XMS_ITS | Encounter Summary ---
Author Organization [facility] Address [address] [place] [address] Care Team Providers Care Prison Warden Name Role Phone Durga, Richie GLASER Primary Care Provider Rajesh Tapia MD Primary Care Provider Un available Reason for Visit * Reason Onset Date Comments Cough 04/09/2011 Encounter Details Date Type Department Care Team Description 04/09/2011 Telephone Adult Medicine [address] [address] Name, MD Richie Cough Social History Tobacco Use Types Packs/Day Years Used Date Smoking Tobacco: Never Alcohol Use Standard Drinks/Week Comments Yes 0 (1 standard drink = 0.6 oz pur e alcohol) social Sex Assigned at Date Recorded Not on file documented as of this encounter Miscellaneous Notes * Telephone Encounter - Christie Cody Vines - 04/09/2011 4:14 PM EDT Pt has hx of lymphedema in both legs. He has chronic leg pain. He has been seen at lymphedema clinic Pt has a cough for the past 24 hours C/O chest wall pain with deep breath and cough, denies SOB, able to speak in full sentences and hasno audible wheezing, cough is Non productive for Sputum, denies fever (has not taken temp) able to take PO with no difficulty, denies N/V/ is having diarrhea with 2 loose stools per day, has swellingin both legs to the knees, Advised home care following the cough Protocol. RN reinforced telephone consultation and advice. Reviewed with the patient the signs and symptoms to watch for that would require immediate attention. If symptoms change, worsen or increase in intensity, to call back immediately. Appointment With sergey Mcmullen tomorrow at 10;30 Past Medical History Diagnosis Date ??? OTHER LYMPHEDEMA 10/23/2006 No current outpatient prescriptions on file prior to encounter. * Telephone Encounter - Rebecca Herzog - 04/09/2011 3:18 PM EDT Symptoms patient is presenting: coughing and now his chest hurts a lot when he coughs. No other symptoms. Worried about Lymphedema Second issue is he has leg pain, they hurt him all Day and night How long has patient had these symptoms?: 1 week PCP: Richie Calixto MD Payor: WORKERS COMPENSATION Plan: WORKERS COMPENSATION/[place] Product Type: OTHER documented in this encounter Plan of Treatment Not on file documented as of this encounter Visit Diagnoses Not on filedocumented in this encounter Care Teams Prison Warden Relationship Specialty Start Date End Date Name, MD Richie PCP - General 10/22/06 12/10/15 Rajesh Campuzano MD PCP - General Internal Medicine 12/11/15 documented as of this encounter
--- OUTSIDE RECORDS SUMMARY | 2025-06-21 18:48 | XMS_ITS | Encounter Summary ---
Author Organization [facility] Address [address] [place] [address] Care Team Providers Care Geneticist Name Role Phone Name, Richie GLASER Primary Care Provider Rajesh Tapia MD Primary Care Provider Un available Reason for Visit * Reason Onset Date Comments REFERRAL 08/19/2014 PODIATRY Encounter Details Date Type Department Care Team Description 08/19/2014 Telephone Podiatry - [address] [address] Abiola Begum DPM REFERRAL (PODIATRY) Social History Tobacco Use Types Packs/Day Years Used Date Smoking Tobacco: Never Smokeless Tobacco: Never Alcohol Use Standard Drinks/Week Comments Yes 0 (1 standard drink = 0.6 oz pur e alcohol) social Sex Assigned at Date Recorded Not on file documented as of this encounter Miscellaneous Notes * Telephone Encounter - Jaycee Clements - 08/19/2014 11:30 AM EST PATIENT NO SHOWED 3X FOR HIS PODIATRY CONSULT. FYI TO REFERRING PROVIDER. documented in this encounter Plan of Treatment Not on file documented as of this encounter Visit Diagnoses Not on filedocumented in this encounter Care Teams Geneticist Relationship Specialty Start Date End Date Name, MD Richie PCP - General 10/22/06 12/10/15 Rajesh Campuzano MD PCP - General Internal Medicine 12/11/15 documented as of this encounter
== END 2025-06-21 16:20 | disposition home or self-care (01) ==
LOC: HO.HVS 15:57
PROVIDERS: PCP Nurse Practitioner Family; Visit Provider Surgery Vascular Surgery
DX: I83.12 Varicose veins of left lower extremity with inflammation (principal); I83.11 Varicose veins of right lower extremity with inflammation
CPT/HCPCS: 99214

== ENCOUNTER 2025-09-01 15:29 | Outpatient (AMB) | payer OTHER, SELFPAY ==
--- NOTE | 2025-09-01 16:06 | A.OFFVIS_ITS ---
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: No Accompanied by: Self / Same As Patient Allergies vancomycin Allergy (Unknown, Verified 09/01/25 16:07) [facility] Medical History Lymphedema Social History Household Members: Family Do you presently have visiting nurse or other home services: No Alcohol intake: current Alcohol intake frequency: holidays/special occasions only Substance Use Type: Marijuana service: No Current occupational status: unemployed Office Procedures Vascular Office Procedure Details Details: Diagnosis: Varicose veins with inflammation of right leg Procedure: Endovenous radiofrequency ablation of the right small saphenous vein(s) of the lower extremity. Anesthesia: Local infiltration 5 cc, Tumescent 200 cc. Estimated Blood Loss: minimal Specimen: Varicose veins The patient was transferred to the procedure suite and the insufficient saphenous vein was mapped by ultrasound and diagrammed on the overlying skin. The depth and diameter of the vein(s) to be treated was documented. The varicose tributary veins and suitable access sites were identified and mapped as well. The patient was then positioned supine on the procedure table. The affected limb was prepped and draped in the usual sterile fashion. The RF catheter was placed on the sterile field, flushed and wiped down, prepared, and connected by a sterile cable. The patient was placed in prone position and local anesthesia was instilled in the skin overlying the access site. A skin incision was made overlying the identified and mapped small saphenous vein entry site. The vein was accessed using ultrasound guidance and the Seldinger technique, a guide wire was introduced through the needle, which was then exchanged over the guide wire for a 6F sheath, which was secured in place. The guide wire was removed and the sheath was flushed. The RF catheter was placed into the vein through the sheath and preferentially, imaging was used to place the catheter tip just inferior to the popliteal junction.. Additionally, it was confirmed by ultrasound guidance that the catheter tip was also placed a minimum of 1.5cm distal to the sapheno popliteal junction. After the RF catheter position was verified by ultrasound, tumescent anesthesia was infiltrated, under ultrasound guidance, precisely into the perivenous compartment along the entire length of vein from the entry site to the saphenofemoral junction until a halo of fluid was noted around the vein. After RF catheter position was again confirmed with ultrasound imaging, and under direct external compression along the length of the heating element, RF energy was applied. The vein was segmentally ablated by heating a 8 cm segment and then indexing the catheter forward by 7.5 cm until the treatment length is completed. Device temperature was maintained at 120 plus or minus 5 degrees C with an initial power level of 40W dropping to below 20W for each treatment. Total vein length treated 20 cm Total cycles of RF 4. Repeat ultrasound of the saphenous vein was performed, confirming successful treatment. The catheter and sheath were withdrawn and hemostasis established with direct pressure. After assuring hemostasis, the skin incision over the saphenous vein was closed with a bandage and a compression wrap, and/ or graduated compression stocking was applied from the level of the foot to the most proximal level of the thigh. 39035 - Endovenous RF, 1st Vein All charges added?: Procedure code (CPT) selection complete Assessment & Plan Assessment & Plan (1) Varicose veins of right lower extremity with inflammation: Comment: 03/04/2025 - right great saphenous vein ablation 09/01/2025 - right small saphenous vein radiofrequency ablation Code(s): I83.11 - Varicose veins of right lower extremity with inflammation Category: Medical Plan: See op note Coding Level of Care Code Procedure Only Diagnoses Varicose veins of right lower extremity with inflammation I83.11 CPT Codes Details - Vascular 1: 57118 - Endovenous RF, 1st Vein ([id number])
--- OUTSIDE RECORDS SUMMARY | 2025-09-01 19:25 | XMS_ITS | Encounter Summary ---
Author Organization [employer] Address [address] [place] [address] [address] [place] [address] Care Team Providers Care Boring Machine Operator Production Name Role Phone Vilma Rosario Primary Care Provider [phone] Reason for Visit * Reason Onset Date Comments Med Refill 06/28/2025 Encounter Details Date Type Department Care Team (Late st Contact Info) Description 06/28/2025 Refill [facility] [address] [place], [place] [phone] Vilma Rosario FNP [address] [place] [address] Seborrheic dermatitis Social History Tobacco Use Types Packs/Day Years Used Date Smoking Tobacco: Never Smokeless Tobacco: Never Depression Answer Date Recorded Patient Health Questionnaire-9 [...] Orientation Straight 07/15/2022 10 :17 AM EDT documented as of this encounter Plan of Treatment Not on file documented as of this encounter Visit Diagnoses Diagnosis Seborrheic dermatitis Unspecified seborrheic dermatitis documented in this encounter Additional Health Concerns Assessment Noted Time PHQ-9 Depression Total Score: 7 11/05/19 25 10:49 AM EST documented as of this encounter Care Teams Boring Machine Operator Production Relationship Specialty Start Date End Date Vilma Rosario FNP [address] [place] [id number] PCP - General Family Medicine 07/13/24 documented as of this encounter
--- OUTSIDE RECORDS SUMMARY | 2025-09-01 19:25 | XMS_ITS | Clinical Summary ---
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 Fluocinolone Acetonide Scalp ([place]-Smoothe/ FS Scalp) 0.01 % oilIndications: Seborrheic dermatitis [...] Complains hit rubs against clothing. 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 Tesfaye will utilize [facility] services for OP therapy. Declined medication at [...] EST): Recently treated at [facility] for left leg infection 07/20/2024, prescribed clortrimazole [...] Encounters Date Type Department Care Team Description 06/28/2025 Refill [facility]INE [address] [place] [address] Clay Rosarioe, FIRST LINE PRODUCTION SUPERVISOR Seborrheic dermatitis 06/28/2025 Refill [facility]INE [address] [place] [address] Brody Rosarioupe, FIRST LINE PRODUCTION SUPERVISOR Seborrheic dermatitis from Last 3 Months Family History Medical [...] 3-dose series) 2002 COVID-19 Vaccine (3 - season) 2025 02/14/2021, 01/17/2021 Influenza Vaccine (#1) [...] PM EST) Hepatitis C Antibody Nonreactive Nonreactive [facility] Comment:Antibodies to HCV no t detected; does not exclude early acuteHCV infection. Blood Venous blood specimen / Unknown 08/04/2024 12:23 PM EST 08/04/2024 1:16 PM EST [facility] B[facility]OD [facility]AB[facility] Final Res ult [facility] [address] [place] [address] [phone] * HIV-1/2 Antigen and Antibodies, Fourth Generation, with Reflexes (08/04/2024 12:23 PM EST) HIV AB/AG Nonreactive Nonreactive [facility] Comment:HIV-1 p24 Ag and/or HIV-1/HIV-2 Ab not detected.A test result that is nonreactive does not exclude thepossibility of exposure to or infection with HIV-1 and/orHIV-2. Nonreactive results in this assay for individualswith prior exposure to HIV-1 and/or HIV-2 may be due toantigen and antibody levels that are below the limit ofdetection of this assay.The [facility] HIV Ag/Ab Combo assay result andsupplemental assay results should be interpreted inconjunction with the patient's clinical presentation,history and other laboratory results. If the results areinconsistent with clinical evidence, additional testing issuggested to confirm the result. Blood Venous blood specimen / Unknown 08/04/2024 12:23 PM EST 08/04/2024 1:16 PM EST [facility] LAB BLOOD ORDERABLES Final Res ult [facility] [address] [place] [address] [phone] * (ABNORMAL) LIPID PANEL, STANDARD (02/06/2022 [...] LDL-C. Kris SS et al. GIOVANNY. 2013;310(19): 2726-0298 (http://education.[employer].mParticle/faq/JKH871) Non-HDL Cholesterol 79 <130 mg/dL (calc) [facility] Comment: For patients with diabetes plus 1 major ASCVD risk factor, treating to a non-HDL-C goal of <100 mg/dL (LDL-C of <70 mg/dL) is considered a therapeutic option. Triglycerides 73 <150 mg/dL [facility] 02/06/2022 9:13 AM EDT us Richie Calixto MD LAB BLOOD ORDERABLES Final Resul t [facility] [address] from Last 3 Months or Most Recently Relevant to Health Maintenance Insurance [facility] [address] [place] [address] Care Teams Education Trainer Relationship Specialty Start Date End Date Vilma Rosario FNP [address] [place] [id number] PCP - General Family Medicine 07/13/24
== END 2025-09-01 16:30 | disposition home or self-care (01) ==
LOC: HO.HVS 15:29
PROVIDERS: PCP Nurse Practitioner Family; Visit Provider Surgery Vascular Surgery
DX: I83.11 Varicose veins of right lower extremity with inflammation (principal)
CPT/HCPCS: 36475

== ENCOUNTER → 2025-09-01 15:29 | Outpatient (BNVA) | payer OTHER, SELFPAY | PROVIDERS: PCP Nurse Practitioner Family; Visit Provider Surgery Vascular Surgery | DX: I83.11 Varicose veins of right lower extremity with inflammation (principal) | CPT/HCPCS: 36475; J2003; J2004 ==